=== PATIENT | male | born 1940 | race Caucasian/White ===

== ENCOUNTER 2021-12-26 15:57 | Observation (INO) | payer MEDICARE, BC, SELFPAY ==
[2021-12-26] VITALS (7 sets, daily range): BP systolic 123–152; BP diastolic 76–88; PULSE 71–98; RESP 18–20; TEMP 36.1–36.8; O2SAT 97–99; BMI 37.3
--- NOTE | ~2021-12-26 | CT_ITS ---
EXAMINATION: CTA brain carotid DATE: 12/26/2021 18:52 INDICATION: TIA TECHNIQUE: Computed tomographic angiography (CTA) of the head was performed without and with 100 mL O mnipaque-350 intravenous contrast. CTA of the neck was performed with intravenous contrast. The dose- length product was 1180.84 mGy-cm. Maximum intensity projection and volume rendered 3D-reconstruction s were created by the technologist on a separate workstation. COMPARISON: None. FINDINGS: CT BRAIN: No acute large vessel infarct, intracranial hemorrhage, mass, or hydrocephalus. CTA HEAD: No large vessel occlusion, aneurysm, high flow vascular malformation, nidus or extravasation. CTA NECK: Aortic arch and proximal great vessels: Mild atherosclerotic calcifications at the visualized aortic arch and proximal great vessels. Left common carotid artery origin directly off the arch. Right common carotid, carotid bifurcation, and internal carotid artery: No significant plaque.There i s 0% stenosis of the proximal right internal carotid artery relative to normal distal artery lumen di ameter (NASCET criteria). Left common carotid, carotid bifurcation, and internal carotid artery: No significant plaque.There is 0% stenosis of the proximal left internal carotid artery relative to normal distal artery lumen diam eter (NASCET criteria). Vertebral arteries: No significant plaque or stenosis. Left vertebral artery is dominant. Other findings: Cervical spondylosis. IMPRESSION: No large vessel occlusion. No severe carotid or vertebral stenosis. Reviewed, dictated and finalized at location K.
--- NOTE | ~2021-12-26 | CT_ITS ---
EXAMINATION: CT brain wo con DATE: 12/26/2021 16:12 INDICATION: Speech deficit. TECHNIQUE: Computed tomography (CT) of the head was performed without intravenous contrast. The mA wa s adjusted according to patient size. Iterative reconstruction technique was employed. The dose-lengt h product was 605.33 mGy-cm. COMPARISON: None FINDINGS: There is no intracranial hemorrhage, acute infarction, or abnormal intracranial mass lesion . There are scattered areas of low attenuation in the cerebral white matter. There are old lacunar in farcts in the bilateral basal ganglia. The ventricles are normal in size. There is mild mucosal thick ening in the paranasal sinuses. There are likely changes of ocular lens replacement surgeries. The ma stoid air cells are normal. IMPRESSION: 1. Old lacunar infarcts in the bilateral basal ganglia. 2. Mild nonspecific cerebral white matter disease, which likely represents chronic small vessel ische wisam disease. Reviewed, dictated and finalized at location B. IMPRESSION: 1. Old lacunar infarcts in the bilateral basal ganglia. 2. Mild nonspecific cerebral white matter disease, which likely represents chronometer assembler sona small vessel ischemic disease.
--- NOTE | ~2021-12-26 | MR_ITS ---
EXAMINATION: MR brain/brain stem wo/w con DATE: 12/27/2021 11:10 INDICATION: Transient ischemic episode with difficulty speaking TECHNIQUE: Magnetic resonance imaging (MRI) of the brain and brainstem was performed without and with 20 mL Multihance intravenous contrast. Sequences included sagittal and axial T1-weighted SE, axial d iffusion-weighted FS SE, axial T2*-weighted GRE, axial 3D SWAN, axial T2-weighted FLAIR, and axial T2 -weighted FSE. Postcontrast axial and coronal T1-weighted SE was obtained. Apparent diffusion coeffic ient (ADC) maps were created. COMPARISON: Head CT and CTA brain dated 12/26/2021 FINDINGS: Tiny focus of restricted diffusion in the right frontal quiroz radiata consistent with acute lacunar infarct. No intracranial hemorrhage or abnormal intracranial mass lesion. There are scattered areas o f nonspecific increased T2-weighted signal intensity in the cerebral white matter, predominantly invo lving the deep, pontine and periventricular white matter. There are no intraparenchymal signal abnorm alities seen on the other pulse sequences. The ventricles are symmetric and normal in size. There are no abnormal extra-axial fluid collections. Flow voids are seen in the cerebral arteries on the T2-we ighted sequences consistent with their expected patency. Mild mucosal thickening the bilateral maxill lety, ethmoid and frontal sinuses. Changes of bilateral intraocular lens replacement. Visualized orbit s and soft tissues are unremarkable. There are no areas of abnormal enhancement on the post contrast images. IMPRESSION: 1. Small acute lacunar infarct in the right frontal lobe quiroz radiata. Reviewed, dictated and finalized at location A.
--- NOTE | ~2021-12-26 | XR_ITS ---
EXAMINATION: XR chest 1V portable INDICATION: Speech deficit TECHNIQUE: Portable AP chest at 1631 hours COMPARISON: 09/19/2012 FINDINGS: The lungs are free of acute opacities. No pleural effusion or pneumothorax. The cardiomedia stinal silhouette is normal. IMPRESSION: 1. No acute cardiopulmonary abnormality. Reviewed, dictated and finalized at location A.
--- NOTE | 2021-12-26 16:05 | ECG_ITS ---
Measurements Intervals Wilmer Rate: 96 P: 36 KS: 186 QRS: 1 QRSD: 94 T: 50 QT: 338 QTc: 427 Interpretive Statements SINUS RHYTHM POOR R-WAVE PROGRESSION CANNOT RULE OUT INFERIOR INFARCTION ABNORMAL ECG COMPARED TO ECG 09/02/2018 19:28:03 NO SIGNIFICANT CHANGES Electronically Signed On 12-27-2021 9:30:09 CDT by Rodrigo Blanchard M.D.
--- NOTE | 2021-12-26 16:20 | ED.NEUROSD ---
HPI - Neuro Symptoms/Deficit General Chief Complaint: Neuro Symptoms/Deficit Stated Complaint: difficulty speaking, cp Time Seen by Provider: 12/26/21 16:19 Source: patient Mode of arrival: ambulatory Limitations: no limitations History of Present Illness HPI Narrative: Patient is an 81-year-old male with a history of hypertension, hyperlipidemia presenting to the emergency department for evaluation of word finding difficulty that occurred approximately 2:50 PM. Patient states that he was on the phone when he suddenly began to have issues with word finding. Patient denied any specific dysarthria, facial droop, arm weakness or numbness. Patient states that symptoms lasted approximately 20 minutes before resolving. Patient denies any current symptoms although he states he did experience some mild chest pressure that is currently resolved at the time of assessment. The chest pressure was located in the central area of the chest without radiation to the back or shoulder. Patient denies any ripping or tearing sensation to the flank or associated shortness of breath. Patient denies recent cough cold symptoms. Patient reports recently got COVID booster 3 days ago. Related Data Allergies Allergy/AdvReac Type Severity Reaction Status Date / Time nitroglycerin AdvReac Severe Other Verified 12/26/21 16:39 Review of Systems Review of Systems: CONSTITUTIONAL: Denies fever, chills, or sweats. EYES: Denies visual changes, redness, or discharge. ENT: Denies rhinorrhea, congestion, sore throat, or otalgia. CARDIOVASCULAR: Reports mild chest pressure without palpitations, or edema. RESPIRATORY: Denies cough or dyspnea. GASTROINTESTINAL: Denies abdominal pain, nausea, vomiting, or diarrhea. GENITOURINARY: Denies dysuria or hematuria. SKIN: Denies rash or itching. MUSCULOSKELETAL: Denies back pain, joint pain, or myalgia. NEUROLOGIC: Denies headache, numbness, or weakness. [facility] Past Medical History Medical History (Updated 12/26/21 @ 19:17 by Dulce Maria Zavala MD) Hyperlipidemia Surgical History Surgical History (Updated 12/26/21 @ 17:36 by Dulce Maria Zavala MD) H/O left knee surgery H/O wrist surgery Social History Social History (Updated 12/26/21 @ 17:37 by Dulce Maria Zavala MD) Alcohol intake: never Substance use: never Living arrangements: with family Gender identity (if verbalized by the patient): Male Exam Narrative: GENERAL: Awake, alert, conversant HEAD: Normocephalic, atraumatic. EYES: PERRLA and EOMI. ENT: Nares clear, no rhinorrhea or epistaxis. Mucous membranes moist. NECK: Supple. CHEST: No respiratory distress, breathing even and non labored HEART: Regular rate, sinus rhythm ABDOMEN:Non distended, non tender EXTREMITIES: Normal range of motion. No edema. SKIN: Warm, dry, no rash. NEURO:No focal deficits. Alert and oriented x3. Finger to nose intact bilaterally. EOMs intact without nystagmus. No facial droop/asymmetry noted bilaterally. Grimace intact. Intact sensation in face. Hearing intact bilaterally. Shoulder shrug intact. Strength 5/5 bilateral upper extremities. Strength 5/5 bilateral lower extremities. Reflexes 2+ patellar. Heel to black intact bilaterally. Ambulatory exam deferred. Course Vital Signs Vital signs: Vital Signs Temperature 36.6 C 12/26/21 16:20 Pulse Rate 93 12/26/21 16:20 Respiratory Rate 20 12/26/21 16:20 Blood Pressure 147/88 H 12/26/21 16:20 Pulse Oximetry 98 12/26/21 16:20 Oxygen Delivery Room Air 12/26/21 16:20 Temperature 36.6 C 12/26/21 16:20 Pulse Rate 84 12/26/21 17:24 Respiratory Rate 18 12/26/21 17:24 Blood Pressure 124/82 12/26/21 17:24 Pulse Oximetry 97 12/26/21 17:24 Oxygen Delivery Room Air 12/26/21 16:20 MDM - Neuro Symptoms/Deficit MDM Narrative Medical decision making narrative: Patient presenting for evaluation of difficulty with speech, resolved at the time of assessment. Patient made code stroke due to
[2021-12-26 16:23] LABS: Glucose Point of Care 82 mg/dl (65-105)
[2021-12-26 17:00] LABS: Basophils Absolute Auto 0.1 K/mm3 (0.0-0.1); Basophils Percent Auto 0.9 % (0.2-1.2); Eosinophils Absolute Auto 0.6 K/mm3 (0-0.3); Eosinophils Percent Auto 6.9 % (0-4.4); Hematocrit 46.1 % (42.0-52.0); Hemoglobin 14.8 g/dL (14.0-18.0); Immature Granulocyte Absolute 0.02 K/mm3 (0.00-0.031); Immature Granulocyte Percent A 0.2 % (0-0.5); Lymphocytes Absolute Auto 2.45 K/mm3 (0.9-3.2); Lymphocytes Percent Auto 30.5 % (18.3-44.2); Mean Corpuscular HGB Conc 32.1 g/dl (32-36); Mean Corpuscular Hemoglobin 31.6 pg (26-34); Mean Corpuscular Volume 98.5 fl (80-100); Mean Platelet Volume 11.1 fl (7.4-10.4); Monocytes Percent Auto 12.8 % (2.6-8.5); Neutrophils Absolute Auto 3.9 K/mm3 (1.3-6.7); Neutrophils Percent Auto 48.7 % (45.5-73.1); Platelet Count Result 320 k/mm3 (150-375); Red Blood Count 4.68 M/mm3 (4.6-6.20)
[2021-12-26 17:12] LABS: INR 1.1; Prothrombin Time 13.9 Seconds (11.1-14.7)
[2021-12-26 17:13] LABS: Alanine Aminotransferase 22 U/L (6-50); Albumin Level 4.4 g/dL (3.5-5.1); Alkaline Phosphatase 83 U/L (38-126); Anion Gap 11 mmol/L (8-16); Aspartate Amino Transferase 29 U/L (17-59); Blood Urea Nitrogen 19 mg/dL (9-20); Calcium 9.8 mg/dL (8.4-10.2); Carbon Dioxide 28 mmol/L (22-30); Chloride 104 mmol/L (98-107); Estimated CRCL calculation 51 ml/min; Estimated Glomerular Filt Rate > 60; Glucose 82 mg/dL (65-110); Partial Thromboplastin Time 29.8 SECONDS (22.3-36.8); Potassium 3.9 mmol/L (3.4-5.0); Sodium 143 mmol/L (137-145)
[2021-12-26 17:23] LABS: Troponin I < 0.012 ng/mL (0.000-0.034)
[2021-12-26 17:37] LABS: SARS-CoV-2 RNA PCR Negative
[2021-12-26] MEDS: ASPIRIN 81 MG CHEWABLE TABLET 324 MG PO (17:53)
--- NOTE | 2021-12-26 20:12 | ADMGEN ---
This patient, Luis Manuel Rowell, was admitted to IMU Room 206-01. Patient/family oriented to hospital policies and general routines including ID bracelet, bed and alarms, visiting hours, pain management, procedures, bathroom and other care routines, personal items, smoking policy, room service/diet, and visiting hours. Information on how to activate the Rapid Response Team has been discussed. Patient/Family are encouraged to report perceived risks to care and to ask questions if they do not understand what they are told or what they should do.
[2021-12-27] VITALS (9 sets, daily range): BP systolic 102–143; BP diastolic 59–79; PULSE 60–82; RESP 20; TEMP 36.6–36.7; O2SAT 96–99
--- NOTE | 2021-12-27 | ECHO_ITS ---
Patient Info Name: Luis Manuel Rowell Age: 81 years : 1940 Gender: Male Ht: 65 in Wt: 224 lbs BSA: 2.21 m2 HR: 72 bpm BP: 143 / 74 mmHg Heart Rhythm: Sinus Rhythm Exam Date: 12/27/2021 1:30 PM Exam Location: [facility] Patient Status: Outpatient Admit Date: 12/26/2021 Staff Ordering Physician: Dulce Maria Zavala MD Customer Services Manager: Adalberto Abdi, BLANCA, RT Attending Provider: Anoop Brambila MD Referring Physician: Lucas HERNANDEZ; Exam Type: CA echo doppler color flow Study Info Indications G45.8 - Other transient cerebral ischemic attacks and related syndromes Complete two-dimensional, color flow and Doppler transthoracic echocardiogram is performed. Strain analysis performed. Summary 1. Complete two-dimensional, color flow and Doppler transthoracic echocardiogram is performed. 2. Left ventricular chamber dimension is normal. 3. Left ventricular systolic function is normal, estimated at 65-70%. 4. There is mildly increased left ventricular wall thickness. 5. Global longitudinal strain is borderline at -17 %. 6. The left ventricular diastolic function is grade I diastolic dysfunction. 7. Left atrial chamber dimension is mildly enlarged. 8. There is moderate aortic valve regurgitation. 9. There is mild mitral valve regurgitation. 10. There is mild pulmonic regurgitation. Left Ventricle Left ventricular chamber dimension is normal. Left ventricular systolic function is normal, estimated at 65-70%. There is mildly increased left ventricular wall thickness. The left ventricular diastolic function is grade I diastolic dysfunction. Global longitudinal strain is borderline at -17 %. Right Ventricle Right ventricular chamber dimension is normal. Right ventricular systolic function is normal. Left Atria Left atrial chamber dimension is mildly enlarged. Right Atria Right atrial chamber dimension is normal. Atrial Septum Intact interatrial septum visualized by color flow imaging. Aortic Valve The aortic valve is trileaflet. There is mild aortic valve sclerosis. There is no aortic valve stenosis. There is moderate aortic valve regurgitation. Pulmonic Valve The pulmonic valve is normal. There is no pulmonic valve stenosis. There is mild pulmonic regurgitation. Mitral Valve The mitral valve has normal leaflets. There is no mitral valve stenosis. There is mild mitral valve regurgitation. Tricuspid Valve The tricuspid valve leaflets are normal. There is no significant tricuspid valve stenosis. There is trace tricuspid valve regurgitation. Pericardium/Pleural The pericardium appears normal. There is no pericardial effusion. Inferior Vena Cava Normal inferior vena cava with >50% collapse upon inspiration consistent with normal right atrial pressure, 5 mmHg. Aorta The aortic root size at the sinus of Valsalva is borderline dilated. The prox ascending aorta size is normal. Left Ventricular Outflow Tract Name Value Normal LVOT 2D LVOT Diameter 2.0 cm LVOT Doppler LVOT Peak Gradient 4 mmHg LVOT Mean Gradient 3
--- NOTE | 2021-12-27 00:06 | PM.IMHP ---
H&P: HPI History of Present Illness Date/Time: 12/26/2021 2300 Chief Complaint: Neuro deficit Narrative: This is an 81-year-old male patient who lives with his . The patient has a history of hypertension, and hyperlipidemia. He has no known previous strokes. The patient stated that he was on the phone with a [employer] when he noticed that his words were not coming out the way that he thought they were and this occurred at 2:50 p.m.. The patient stated that this lasted for approximately 20 minutes before resolving. The patient has no current symptoms. The patient stated that he did have some chest pressure that is now resolved. He had central chest pressure that is now resolved. The patient had no radiation to his back or shoulder. He had no fever chills. The patient stated that he recently had a COVID booster 3 days ago. COVID test is negative. Head and neck CTA was read as no large vessel occlusion. No severe carotid or vertebral stenosis. Chest x-ray was read as no acute cardiopulmonary abnormality. Head CT was read as old lacunar infarcts in the bilateral basal ganglia. Mild nonspecific cerebral white matter disease, which likely represents chronic small vessel ischemic disease. The patient was given Plavix and an aspirin in the emergency room. Neurology has been consulted. The 1st troponin was found to be negative. The patient is being admitted to observation status on the date of service of 12/26/2021. Review of Systems Review of Systems: See HPI All systems reviewed & are unremarkable except as noted in HPI and below Constitutional: Constitutional: Reports as per HPI and Reports no additional constitutional complaints Eyes: Eyes: Reports as per HPI and Reports no additional eye complaints ENT: Reports system reviewed and no additional complaints, except as documented and Reports Normal hearing present Cardiovascular: Cardiovascular: Reports no additional cardiovascular complaints Respiratory: Respiratory: Reports no additional respiratory complaints and Reports no additional respiratory complaints Gastrointestinal: Gastrointestinal: Reports as per HPI and Reports no additional gastrointestinal complaints Musculoskeletal: Musculoskeletal: Reports no additional musculoskeletal complaints Integumentary/Breasts: Skin/Breast: Reports system reviewed and no additional complaints, except as docu and Reports as per HPI Neurologic: Reports system reviewed and no additional complaints, except as documented, Reports as per HPI and Reports Normal hearing present Psychiatric: Psychiatric: Reports no additional psychiatric complaints and Reports as per HPI Endocrine: Endocrine: Reports no additional endocrine complaints Hematologic/Lymphatic: Hematologic/Lymphatic: Reports no additional hematologic/lymphatic complaints Allergic/Immunologic: Allergic/Immunologic: Reports no additional allergic/immunologic complaints PMFSH Past Medical History Medical History (Updated 12/27/21 @ 00:23 by Eva Murphy NP) History of CVA (cerebrovascular accident) Hyperlipidemia Hypertension Surgical History Surgical History (Updated 12/27/21 @ 00:13 by Eva Murphy NP) H/O left knee surgery Right and left total knee arthroplasty History of cataract extraction Family History Family History Other Unknown family medical history Social History Social History (Updated 12/27/21 @ 00:16 by Eva Murphy NP) Social History: The patient is and lives with his . They have 4 children together. The patient is retired. The patient is a lifelong nonsmoker. He does not use any alcohol, marijuana, or illicit drugs. His is his durable power quarrying specialist for healthcare. Code status full code Smoking status: Never smoker Alcohol intake: never Substance use: never Substance use type: does not use Living arrangements: with family [place]
[2021-12-27 05:14] LABS: Basophils Absolute Auto 0.1 K/mm3 (0.0-0.1); Basophils Percent Auto 0.8 % (0.2-1.2); Eosinophils Absolute Auto 0.7 K/mm3 (0-0.3); Eosinophils Percent Auto 9.4 % (0-4.4); Hematocrit 40.5 % (42.0-52.0); Hemoglobin 13.1 g/dL (14.0-18.0); Immature Granulocyte Absolute 0.03 K/mm3 (0.00-0.031); Immature Granulocyte Percent A 0.4 % (0-0.5); Lymphocytes Absolute Auto 2.64 K/mm3 (0.9-3.2); Lymphocytes Percent Auto 35.4 % (18.3-44.2); Mean Corpuscular HGB Conc 32.3 g/dl (32-36); Mean Corpuscular Hemoglobin 31.6 pg (26-34); Mean Corpuscular Volume 97.6 fl (80-100); Mean Platelet Volume 11.4 fl (7.4-10.4); Monocytes Absolute Auto 0.9 K/mm3 (0.1-0.6); Monocytes Percent Auto 11.4 % (2.6-8.5); Neutrophils Absolute Auto 3.2 K/mm3 (1.3-6.7); Neutrophils Percent Auto 42.6 % (45.5-73.1); Platelet Count Result 262 k/mm3 (150-375); Red Blood Count 4.15 M/mm3 (4.6-6.20); Red Cell Distribution Width 13.8 % (11.5-14.5); White Blood Count 7.5 K/mm3 (4.5-10.0)
[2021-12-27 05:30] LABS: Alanine Aminotransferase 20 U/L (6-50); Albumin Level 3.7 g/dL (3.5-5.1); Alkaline Phosphatase 82 U/L (38-126); Anion Gap 9 mmol/L (8-16); Aspartate Amino Transferase 23 U/L (17-59); Bilirubin,Total 0.8 mg/dL (0.2-1.3); Blood Urea Nitrogen 18 mg/dL (9-20); Calcium 9.3 mg/dL (8.4-10.2); Carbon Dioxide 25 mmol/L (22-30); Chloride 105 mmol/L (98-107); Cholesterol 139 mg/dL (0-200); Estimated CRCL calculation 56 ml/min; Estimated Glomerular Filt Rate > 60; Glucose 89 mg/dL (65-110); HDL Direct 34 mg/dL; Magnesium 1.8 mg/dL (1.6-2.3); Potassium 4.1 mmol/L (3.4-5.0); Sodium 139 mmol/L (137-145); Triglycerides 140 mg/dL (<150)
[2021-12-27 05:40] LABS: LDL Cholesterol Direct 66 mg/dL
[2021-12-27] MEDS: CLOPIDOGREL BISULFATE 75 MG TABLET PO (10:10)
[2021-12-27] MEDS: lisinopriL 5 MG TABLET PO (10:10)
[2021-12-27] MEDS: ATORVASTATIN 20 MG TABLET PO (10:10)
[2021-12-27] MEDS: ASPIRIN 81 MG ENTERIC TABLET PO (10:10)
[2021-12-27] MEDS: GABAPENTIN 100 MG CAPSULE PO (10:10)
--- NOTE | 2021-12-27 12:55 | WPDNEURCNPN ---
Assessment and Plan Assessment and plan (1) TIA (transient ischemic attack): Code(s): G45.9 - Transient cerebral ischemic attack, unspecified Status: Acute Plan all the present studies have been thoroughly discussed with the patient we are waiting only for the echocardiogram if that study is negative patient can be discharged on aspirin be followed in the office the next 3 months Consult date: 12/27/21 Time Seen: 12:30 Reason for consult: TIA HPI: Luis Manuel Rowell is a 81 year old maleAdmitted to the hospital through the emergency room for the complaints of difficulties in finding the right word to carry on the communication occurring around 2:50 p.m.. Reportedly he was on the phone when he suddenly began to have issues with word finding he did not notice that his speech was dysarthric and he had no associated any other neurological symptomatology the whole episode lasted for about 20 minutes he did have mild pressure-like sensation in the chest which subsequently resolved the pressure sensation was located in central areas of the chest without radiation to the back or to the shoulder had no difficulties in breathing has had COVID booster about 3 days ago in addition he has ongoing diagnosis of 1. Hypertension 2. Hyperlipidemia 3. Nitroglycerin allergies 4. No alcohol drinking 5. History of cerebrovascular accident in the past 6. Has been taking aspirin 81 mg daily in addition to atorvastatin 20 mg daily and benazepril 5 mg daily. Initial vital signs in the emergency room was stable with blood pressure 147/88 routine lab studies were normal, CT scan of the head documented lacunar infarct in bilateral gaze is ganglia, and CTA documented no acute large vessel involvement additionally MRI of the brain documented small acute infarct in the right frontal lobe coronal radiata Review of Systems Review of Systems: All systems reviewed & are unremarkable except as noted in HPI and below PMFSH Past Medical History Medical History (Updated 12/27/21 @ 13:03 by Homer Platt MD) History of CVA (cerebrovascular accident) Hyperlipidemia Hypertension Surgical History Surgical History (Updated 12/27/21 @ 00:13 by Eva Murphy NP) H/O left knee surgery Right and left total knee arthroplasty History of cataract extraction Family History Family History Other Unknown family medical history Social History Social History (Updated 12/27/21 @ 00:16 by Eva Murphy NP) Social History: The patient is and lives with his . They have 4 children together. The patient is retired. The patient is a lifelong nonsmoker. He does not use any alcohol, marijuana, or illicit drugs. His is his durable power staff attorney for healthcare. Code status full code Smoking status: Never smoker Alcohol intake: never Substance use: never Substance use type: does not use Living arrangements: with family Gender identity (if verbalized by the patient): Male Spiritual care concerns: No Has the Lack of Transportation Kept You From Medical Appointments or From Getting Medications?: No Within the Past 12 Months, Were You Worried Whether Your Food Would Run Out Before You Got Money to Buy More?: Never True What is Your Housing Situation Today?: I Have Housing Are You Worried That in the Next 2 Months, You May Not Have Your Own Housing to Live In?: No Do You Have Trouble Paying Your Heating Or Electricity Bill?: No Do You Have Trouble Paying For Medicines?: No Are You Currently Unemployed and Looking for Work?: No Highest Level of Education Completed: Bachelor's Degree Do You Have Trouble With Childcare or the Care of a Family Member?: No Meds Home Medications and Allergies Home Medications Medication Instructions Recorded Confirmed Type aspirin 81 mg tablet,delayed 81 mg PO DAILY 12/26/21 12/26/21 History release atorvastatin 20 m
--- NOTE | 2021-12-27 14:03 | PM.IMPN ---
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 The patient had already been on aspirin. Neurology consulted. Aspirin 81 mg daily with Plavix 75 mg daily. LDL 66 well controlled on atorvastatin. Blood pressure optimal. MRI did come back as lacunar infarct in right frontal lobe coronal radiata. Echo pending. CTA head and neck with no large vessel occlusion. No smoking history (2) Hypertension: Code(s): I10 - Essential (primary) hypertension Status: Acute Assessment and Plan: -continue with benazepril (3) Hyperlipidemia: Code(s): E78.5 - Hyperlipidemia, unspecified Status: Acute Assessment and Plan: -continue with atorvastatin. LDL well controlled at 66 Subjective Date/time seen: 12/27/21 14:03 Interval history: HPI:This is an 81-year-old male patient who lives with his .? The patient has a history of hypertension, and hyperlipidemia.? He has no known previous strokes.? The patient stated that he was on the phone with a [employer] when he noticed that his words were not coming out the way that he thought they were and this occurred at 2:50 p.m..? The patient stated that this lasted for approximately 20 minutes before resolving.? The patient has no current symptoms.? The patient stated that he did have some chest pressure that is now resolved.? He had central chest pressure that is now resolved.? The patient had no radiation to his back or shoulder.? He had no fever chills.? The patient stated that he recently had a COVID booster 3 days ago.? COVID test is negative.? Head and neck CTA was read as no large vessel occlusion.? No severe carotid or vertebral stenosis.? Chest x-ray was read as no acute cardiopulmonary abnormality.? Head CT was read as old lacunar infarcts in the bilateral basal ganglia.? Mild nonspecific cerebral white matter disease, which likely represents chronic small vessel ischemic disease.? The patient was given Plavix and an aspirin in the emergency room.? Neurology has been consulted.? The 1st troponin was found to be negative.? The patient is being admitted to observation status on the date of service of 12/26/2021. 12/27/2021 no recurrent symptoms. Feeling okay. Denies any shortness of breath chest pain. Review of Systems Review of Systems: All systems reviewed & are unremarkable except as noted in HPI and below Exam Narrative: GENERAL: Awake, alert, conversant HEAD: Normocephalic, atraumatic. EYES: PERRLA and EOMI. ENT: Nares clear, no rhinorrhea or epistaxis. Mucous membranes moist. NECK: Supple. Nontender CHEST: No respiratory distress, breathing even and non labored HEART: Regular rate, sinus rhythm ABDOMEN:Non distended, non tender EXTREMITIES: Normal range of motion. No edema. SKIN: Warm, dry, no rash. NEURO:No focal deficits. Alert and oriented x3.? no focal neuro deficit noted. Objective Data Vital Signs Vital Signs: Vital Signs - 24 hr 12/26/21 16:20 12/26/21 16:35 12/26/21 17:24 Temperature 98 F Pulse Rate 93 98 84 Respiratory Rate 20 20 18 Blood Pressure 147/88 H 147/88 H 124/82 Pulse Oximetry 98 98 97 Oxygen Delivery Room Air 12/26/21 19:55 12/26/21 20:15 12/26/21 22:00 Temperature 98.2 F Pulse Rate 72 71 76 Respiratory Rate 18 Blood Pressure 152/86 H Pulse Oximetry 98 Oxygen Delivery 12/26/21 23:27 12/27/21 00:00 12/27/21 00:00 Temperature 96.9 F L Pulse Rate 84 60 60 Respiratory Rate 20 20 Blood Pressure 123/76 Pulse Oximetry 99 99 Oxygen Delivery Room Air 12/27/21 01:46 12/27/21 04:00 12/27/21 04:00 Temperature Pulse Rate 62 60 60 Respiratory Rate 20 Blood Pressure Pulse Oximetry 99 Oxygen Delivery
--- NOTE | 2021-12-27 15:27 | PM.DS ---
DS: Admitting Diagnosis Discharge Date 12/27/2021 Admitting Diagnosis expressive aphasia DS: Discharge Diagnosis Discharge Diagnosis (1) Transient cerebral ischemia: Code(s): G45.9 - Transient cerebral ischemic attack, unspecified Status: Acute (2) Hypertension: Code(s): I10 - Essential (primary) hypertension Status: Acute (3) Hyperlipidemia: Code(s): E78.5 - Hyperlipidemia, unspecified Status: Acute DS: Summary Hospital Course Reason for hospitalization: HPI:This is an 81-year-old male patient who lives with his .? The patient has a history of hypertension, and hyperlipidemia.? He has no known previous strokes.? The patient stated that he was on the phone with a [employer] when he noticed that his words were not coming out the way that he thought they were and this occurred at 2:50 p.m..? The patient stated that this lasted for approximately 20 minutes before resolving.? The patient has no current symptoms.? The patient stated that he did have some chest pressure that is now resolved.? He had central chest pressure that is now resolved.? The patient had no radiation to his back or shoulder.? He had no fever chills.? The patient stated that he recently had a COVID booster 3 days ago.? COVID test is negative.? Head and neck CTA was read as no large vessel occlusion.? No severe carotid or vertebral stenosis.? Chest x-ray was read as no acute cardiopulmonary abnormality.? Head CT was read as old lacunar infarcts in the bilateral basal ganglia.? Mild nonspecific cerebral white matter disease, which likely represents chronic small vessel ischemic disease.? The patient was given Plavix and an aspirin in the emergency room.? Neurology has been consulted.? The 1st troponin was found to be negative.? The patient is being admitted to observation status on the date of service of 12/26/2021. Hospital Course: # acute lacunar frontal lobe coronal radiata stroke: Leading to expressive aphasia transient lasted about 15 minutes. On aspirin at home prior to admission. Added on Plavix which will be continued for 3 total weeks followed by aspirin only for lifelong. He was continued on his atorvastatin. His LDL was checked which came back at 66 which is controlled and at goal. He was monitored on telemetry which did not show any arrhythmias. Echocardiogram showed no thrombus or PFO. Neurology was consulted during that admission. He was continued to follow-up with neurologist as an outpatient basis. CTA head and neck was done which showed no large vessel occlusion # hypertension: -continue with benazepril # hyperlipidemia: -continue with atorvastatin. ?LDL well controlled at 66 Time Spent with Patient Time attestation: Total time spent providing and/or coordinating discharge services: 45 minutes Exam Narrative: GENERAL: Awake, alert, conversant HEAD: Normocephalic, atraumatic. EYES: PERRLA and EOMI. ENT: Nares clear, no rhinorrhea or epistaxis. Mucous membranes moist. NECK: Supple. Nontender CHEST: No respiratory distress, breathing even and non labored HEART: Regular rate, sinus rhythm ABDOMEN:Non distended, non tender EXTREMITIES: Normal range of motion. No edema. SKIN: Warm, dry, no rash. NEURO:No focal deficits. Alert and oriented x3.? no focal neuro deficit noted. DS: Data Data Completed and Pending Completed studies during hospitalization: Exam Type: ? ? CA echo doppler color flow Study Info Indications ? ? G45.8 - Other transient cerebral ischemic attacks and related syndromes Complete two-dimensional, color flow and Doppler transthoracic echocardiogram is performed. ? Strain analysis performed. Account #: ? ? [id number] Summary ? 1. Complete two-dimensional, color flow and Doppler transthoracic echocardiogram is performed. ? 2. Left ventricular chamber dimension is normal. ? 3. Left ventricular systolic function is normal, estimated at 65-70%. ? 4. There is mildly incre
== END 2021-12-27 15:58 | disposition home or self-care (01) ==
LOC: ANHED 19:17 → ANHIMU 19:29
PROVIDERS: Nurse Practitioner; Admitting Provider Internal Medicine; Emergency Provider Emergency Medicine; PCP Family Medicine; Visit Provider Internal Medicine
DX: G45.9 Transient cerebral ischemic attack, unspecified (principal); R07.9 Chest pain, unspecified; I10 Essential (primary) hypertension; E78.5 Hyperlipidemia, unspecified; Z86.73 Personal history of transient ischemic attack (TIA), and cerebral infarction without residual deficits; Z96.653 Presence of artificial knee joint, bilateral; Z79.82 Long term (current) use of aspirin; Z20.822 Contact with and (suspected) exposure to COVID-19
CPT/HCPCS: 36415; 70450; 70496; 70498; 70553; 71045; 80053; 80061; 82948; 83735; 84443; 84484; 85025; 85610; 85730; 93005; 93306; 99285; A9270; A9577; C9803; G0378; Q9967; U0003; U0005

== ENCOUNTER 2022-09-16 15:38 | Outpatient (CLI) | payer MEDICARE, BC, SELFPAY ==
--- NOTE | ~2022-09-16 | CT_ITS ---
EXAMINATION: CT brain wo con INDICATION: Confusion, history of transient ischemic attack COMPARISON: 12/26/2021 TECHNIQUE: Standard unenhanced head CT. The dose-length product (DLP) was 605.33 mGy-cm. The mA was a djusted according to patient size. Iterative reconstruction technique was employed. FINDINGS: There is no acute intraparenchymal hemorrhage. No evidence of mass lesion. No evidence of a cute infarction. There is mild periventricular and subcortical hypodensity probably related to small vessel ischemic disease. There is mild prominence of the sulci and ventricles related to cerebral atr ophy. Intracranial calcified cerebral atherosclerosis is noted. There are no extra-axial collections. There is no mass effect or midline shift. Changes in the globes are likely from ocular lens surgery. The visualized sinuses and mastoid air cells are well aerated. IMPRESSION: 1. No acute intracranial abnormality. 2. Age related findings. Reviewed, dictated and finalized at location B.
== END 2022-09-16 15:39 | disposition home or self-care (01) ==
PROVIDERS: PCP Family Medicine; Visit Provider Internal Medicine Cardiovascular Disease
DX: R41.3 Other amnesia (principal); Z86.73 Personal history of transient ischemic attack (TIA), and cerebral infarction without residual deficits
CPT/HCPCS: 70450

== ENCOUNTER 2022-09-29 12:20 | Outpatient (CLI) | payer MEDICARE, BC, SELFPAY ==
--- NOTE | ~2022-09-29 | MR_ITS ---
MRA NECK History: TIA Technique: MRA of the neck was performed prior to and following intravenous administration of 20 cc o f MultiHance. Findings: Both vertebral arteries are patent and show antegrade flow and appear normal. Right and lef t common carotid arteries and the right and left cervical internal carotid arteries and external juárez tid arteries appear normal. The proximal right internal carotid artery demonstrates 0% stenosis relat andrade to the normal distal artery lumen diameter. The proximal left internal carotid artery demonstrate s 0% stenosis relative to the normal distal artery lumen diameter. Impression: No occlusion or stenosis. Reviewed, dictated and finalized at location M. Impression: No occlusion or stenosis.
--- NOTE | ~2022-09-29 | MR_ITS ---
MRI of the brain Clinical History: TIA Technique: Axial and sagittal T1-weighted images were acquired. These were followed by axial T2-weigh martha, diffusion weighted, gradient, and FLAIR images. Following intravenous administration of 20 cc Mu ltiHance gadolinium, T1-weighted fat-sat imaging was performed in the axial and coronal planes. Findings: There is no acute infarct, acute intracranial hemorrhage, or mass lesion. There is moderate to severe chronic white matter disease in the periventricular white matter bilaterally. There are mu ltiple scattered focal areas of low signal on gradient images, especially in the bilateral basal gang jean. Ventricles and subarachnoid spaces are mildly dilated. Orbits are unremarkable. There is minimal bila teral frontal sinus disease. Remaining paranasal sinuses and mastoid air cells are clear. Major intra cranial flow voids are intact. Sagittal midline structures are intact. No abnormal postcontrast enhancement identified. IMPRESSION: No acute abnormality evident. Extensive chronic white matter disease and multiple scattered low signal foci on gradient images, com patible with sequela of prior microhemorrhages. Constellation of findings is suspicious for amyloid a ngiopathy. Reviewed, dictated and finalized at location . IMPRESSION: No acute abnormality evident. Extensive chronic white matter disease and multiple scattered low signal foci o n gradient images, compatible with sequela of prior microhemorrhages. Constella tion of findings is suspicious for amyloid angiopathy.
== END 2022-09-29 12:21 | disposition home or self-care (01) ==
PROVIDERS: PCP Family Medicine Sports Medicine; Visit Provider Internal Medicine Cardiovascular Disease
DX: R41.3 Other amnesia (principal); Z86.73 Personal history of transient ischemic attack (TIA), and cerebral infarction without residual deficits; R93.0 Abnormal findings on diagnostic imaging of skull and head, not elsewhere classified
CPT/HCPCS: 70549; 70553; A9577

== ENCOUNTER 2023-02-24 13:56 | Observation (INO) | payer MEDICARE, BC, SELFPAY ==
[2023-02-24] VITALS (34 sets, daily range): BP systolic 134–158; BP diastolic 78–95; PULSE 68–107; RESP 16–25; TEMP 36.4; O2SAT 93–100
--- NOTE | ~2023-02-24 | MR_ITS ---
MRI of the brain Clinical History: TIA Technique: Axial and sagittal T1-weighted images were acquired. These were followed by axial T2-weigh martha, diffusion weighted, gradient, and FLAIR images. COMPARISON: 09/29/2022 Findings: There is no acute infarct, acute intracranial hemorrhage, or mass lesion. There are extensi ve chronic white matter changes in the periventricular white matter, similar to prior exam. There are several scattered foci of hemosiderin, compatible sequelae remote microhemorrhages, similar to prior exam. Ventricles and subarachnoid spaces are mildly dilated. Orbits are unremarkable. There is mild bilater al frontal sinus disease. Remaining paranasal sinuses and mastoid air cells are clear. Major intracra nial flow voids are intact. Sagittal midline structures are intact. IMPRESSION: No acute abnormality. Extensive chronic white matter disease and several scattered foci of hemosiderin, compatible prior mi crohemorrhage. Amyloid angiopathy is a consideration versus typical chronic microvascular ischemic ch rufino and hypertensive microhemorrhages. Reviewed, dictated and finalized at location M. RANCE AUDITOR IMPRESSION: No acute abnormality. Extensive chronic white matter disease and several scattered foci of hemosideri n, compatible prior microhemorrhage. Amyloid angiopathy is a consideration vers us typical chronic microvascular ischemic change and hypertensive microhemorrha ges.
--- NOTE | ~2023-02-24 | CT_ITS ---
EXAMINATION: CT brain wo con INDICATION: Slurred speech COMPARISON: 09/16/2022 TECHNIQUE: Standard unenhanced head CT. The dose-length product (DLP) was 681.00 mGy-cm. The mA was a djusted according to patient size. Iterative reconstruction technique was employed. FINDINGS: No acute intraparenchymal hemorrhage. No evidence of mass lesion. No evidence of acute infa rction. There is mild periventricular and subcortical hypodensity probably related to small vessel is chemic disease. There is mild prominence of the sulci and ventricles related to cerebral atrophy. Int racranial calcified cerebral atherosclerosis is noted. No extra-axial collections. No mass effect or midline shift. Changes in the globes are likely from ocular lens surgery. The visualized sinuses and mastoid air cells are well aerated. IMPRESSION: 1. No acute intracranial abnormality. 2. Age related findings. Reviewed, dictated and finalized at location B. N MIXER
--- NOTE | ~2023-02-24 | XR_ITS ---
EXAMINATION: XR chest 1V portable DATE: 02/24/2023 14:52 INDICATION: Possible stroke presenting with confusion and slurred speech TECHNIQUE: frontal view of the chest was obtained. COMPARISON: Chest radiograph dated 12/26/2021 FINDINGS: The lungs are clear with no focal airspace opacities, pulmonary edema, pleural effusion or pneumothor ax. The cardiomediastinal silhouette is normal. Visualized bones and soft tissues are unremarkable. IMPRESSION: 1. No acute cardiopulmonary disease. Reviewed, dictated and finalized at location A. ING AIDE
--- NOTE | 2023-02-24 14:28 | ECG_ITS ---
Measurements Intervals [place] Rate: 87 P: 30 VT: 174 QRS: -14 QRSD: 97 T: 61 QT: 347 QTc: 418 Interpretive Statements SINUS RHYTHM MODERATE VOLTAGE CRITERIA FOR LVH, CONSIDER NORMAL VARIANT NONSPECIFIC T-WAVE ABNORMALITY CANNOT RULE OUT INFERIOR INFARCTION, AGE INDETERMINATE ABNORMAL ECG COMPARED TO ECG 12/26/2021 16:21:17 T-WAVE ABNORMALITY NOW PRESENT Electronically Signed On 02-24-2023 17:24:13 [employer] by Charles Bhardwaj M.D.
[2023-02-24 15:38] LABS: Basophils Absolute Auto 0.1 K/mm3 (0.0-0.1); Basophils Percent Auto 0.6 % (0.2-1.2); Eosinophils Absolute Auto 0.5 K/mm3 (0-0.3); Eosinophils Percent Auto 6.2 % (0-4.4); Hemoglobin 14.7 g/dL (14.0-18.0); Immature Granulocyte Absolute 0.02 K/mm3 (0.00-0.031); Immature Granulocyte Percent A 0.2 % (0-0.5); Lymphocytes Absolute Auto 2.12 K/mm3 (0.9-3.2); Lymphocytes Percent Auto 24.9 % (18.3-44.2); Mean Corpuscular Hemoglobin 31.5 pg (26-34); Mean Corpuscular Volume 98.5 fl (80-100); Mean Platelet Volume 12.3 fl (7.4-10.4); Monocytes Absolute Auto 0.8 K/mm3 (0.1-0.6); Monocytes Percent Auto 9.7 % (2.6-8.5); Neutrophils Percent Auto 58.4 % (45.5-73.1); Platelet Count Result 246 k/mm3 (150-375); Red Blood Count 4.67 M/mm3 (4.6-6.20); Red Cell Distribution Width 13.2 % (11.5-14.5); White Blood Count 8.5 K/mm3 (4.5-10.0)
[2023-02-24 15:55] LABS: Prothrombin Time 13.2 Seconds (11.1-14.7)
[2023-02-24 15:56] LABS: Partial Thromboplastin Time 26.8 SECONDS (22.3-36.8)
--- NOTE | 2023-02-24 16:27 | ED.NEUROSD ---
HPI - Neuro Symptoms/Deficit General Chief Complaint: Neuro Symptoms/Deficit Stated Complaint: trouble with speech, staring off Time Seen by Provider: 02/24/23 14:27 History of Present Illness HPI Narrative: Pt presents to the ER with his with Concern for possible TIA prior to arrival. He had a history of a stroke. Was seen by Neurology recently and taking off his Plavix. Patient had an episode where he could not find the right words and per his his speech was unable to be understood. He could not smile but no other neuro deficit. He was emotionally upset due to a couple friends dying this week at that time. states that he does not ever get emotionally upset. Episode lasted 3-4 minutes. Patient is overall healthy. No neuro deficits on my exam Related Data Home Medications Medication Instructions Recorded Confirmed aspirin 81 mg tablet,delayed 81 mg PO DAILY 12/26/21 12/26/21 release atorvastatin 20 mg tablet 20 mg PO DAILY 12/26/21 12/26/21 benazepril 5 mg tablet 5 mg PO DAILY 12/26/21 12/26/21 gabapentin 100 mg capsule 100 mg PO TID 12/26/21 12/26/21 Allergies Allergy/AdvReac Type Severity Reaction Status Date / Time nitroglycerin AdvReac Severe Other Verified 02/24/23 14:28 Review of Systems Review of Systems: negative except as documented in the HPI [facility] Past Medical History Medical History (Updated 02/24/23 @ 21:05 by Monica Freeman MD) History of CVA (cerebrovascular accident) Hyperlipidemia Hypertension Surgical History Surgical History (Updated 12/27/21 @ 00:13 by Eva Murphy NP) H/O left knee surgery Right and left total knee arthroplasty History of cataract extraction Family History Family History Other Unknown family medical history Social History Social History (Updated 12/27/21 @ 00:16 by Eva Murphy NP) Social History: The patient is and lives with his . They have 4 children together. The patient is retired. The patient is a lifelong nonsmoker. He does not use any alcohol, marijuana, or illicit drugs. His is his durable power claim attorney for healthcare. Code status full code Smoking status: Never smoker Alcohol intake: never Substance use: never Substance use type: does not use Lack of Transportation: No Lack of Food: Never True Current Housing: I Have Housing Concerned About Future Housing: No Difficulty Paying Gas/Electric Bills: No Difficulty Paying for Meds: No Currently Unemployed: No Education: Bachelor's Degree Difficulty w/ Childcare or Family Care: No Living arrangements: with family Gender identity (if verbalized by the patient): Male Spiritual care concerns: No Exam Narrative: GENERAL: Well-appearing, well-nourished, and in no acute distress. HEAD: Normocephalic, atraumatic. EYES: PERRLA and EOMI. ENT: Nares clear, no rhinorrhea or epistaxis. Mucous membranes moist. NECK: Supple. CHEST: Clear to auscultation. No respiratory distress. HEART: Regular rate and rhythm. ABDOMEN: Soft, nontender, nondistended. EXTREMITIES: Normal range of motion. No edema. SKIN: Warm, dry, no rash. NEURO: No focal deficits. Alert and oriented x3. PSYCH: Normal mood and affect. Course Course Emergency Course: NIH score currently is 0 Vital Signs Vital signs: Vital Signs Pulse Rate 90 02/24/23 14:09 Respiratory Rate 21 H 02/24/23 14:09 Pulse Oximetry 98 02/24/23 14:09 Temperature 36.4 C 02/24/23 14:21 Pulse Rate 94 02/24/23 19:28 Respiratory Rate 19 02/24/23 19:28 Blood Pressure 140/89 02/24/23 19:28 Pulse Oximetry 99 02/24/23 19:28 Oxygen Delivery Room Air 02/24/23 14:21 MDM - Neuro Symptoms/Deficit MDM Narrative Medical decision making narrative: patient admitted to hospitalist for possibility of TIA Lab Data 02/24/23 15:29 02/24/23 16:18
[2023-02-24 16:35] LABS: Alanine Aminotransferase 15 U/L (6-50); Albumin Level 3.8 g/dL (3.5-5.1); Alkaline Phosphatase 82 U/L (38-126); Anion Gap 7 mmol/L (8-16); Aspartate Amino Transferase 19 U/L (17-59); Bilirubin,Total 0.7 mg/dL (0.2-1.3); Blood Urea Nitrogen 16 mg/dL (9-20); Calcium 9.7 mg/dL (8.4-10.2); Carbon Dioxide 27 mmol/L (22-30); Chloride 105 mmol/L (98-107); Estimated CRCL calculation 60 ml/min; Estimated Glomerular Filt Rate > 60; Glucose 92 mg/dL (65-110); Potassium 4.1 mmol/L (3.4-5.0); Sodium 139 mmol/L (137-145)
[2023-02-24 16:46] LABS: Troponin I < 0.012 ng/mL (0.000-0.034)
[2023-02-24] MEDS: ASPIRIN 81 MG CHEWABLE TABLET 324 MG PO (17:29)
--- NOTE | 2023-02-24 17:33 | PC.NURSE ---
Pt reports taking 81 mg baby aspirin daily. MD made aware, VORB for only 3 baby aspirin.
--- NOTE | 2023-02-24 20:31 | PM.IMHP ---
H&P: HPI History of Present Illness Date/Time: 02/24/23 20:30 Chief Complaint: Slurred speech. Narrative: This is a very pleasant 82-year-old gentleman with history of transient ischemic attack, hyperlipidemia, and hypertension who presented to the emergency department via private vehicle from home for evaluation of slurred speech. The patient provides the following history. He had a TIA approximately 1 year ago and was taken off of clopidogrel just 2 weeks ago by his neurologist at [place]. Today he had several episodes slurred speech where he was having difficulties articulating what he was trying to say. also reports that he was briefly staring off into space. At 1 time he had an emotional outburst and was yelling nonsensically and was upset with his which is very unusual for him. He goes on to say however that he has been upset most ill this past week as he has lost 2 friends recently. His symptoms resolved by the time he arrived to the emergency department. He denies vertigo, visual changes, facial droop, difficulty swallowing, focal weakness, and paresthesias. No history of atrial fibrillation he denies sensations of racing heart palpitations. He has known history of carotid artery disease. Brain CT showed no acute findings. He is being admitted in this setting for TIA/stroke workup neurology consultation. In the ED he was given aspirin 324 mg x 1. Review of Systems Review of Systems: Twelve systems were reviewed and are negative except for as per HPI. [facility] Past Medical History Medical History (Updated 02/24/23 @ 23:44 by Fartun Santiago PA-C) Hyperlipidemia Hypertension Obstructive sleep apnea on CPAP Transient ischemic attack Surgical History Surgical History (Updated 02/24/23 @ 23:44 by Fartun Santiago PA-C) History of bilateral knee arthroplasty History of cataract extraction Family History Family History Other Unknown family medical history Social History Social History (Updated 02/24/23 @ 23:45 by Fartun Santiago PA-C) Social History: Surrogate medical decision maker: Grace Estrella, spouse. Code status: Full code. Smoking status: Never smoker Alcohol intake: never Substance use: never Substance use type: does not use Lack of Transportation: No Lack of Food: Never True Current Housing: I Have Housing Concerned About Future Housing: No Difficulty Paying Gas/Electric Bills: No Difficulty Paying for Meds: No Currently Unemployed: No Education: Bachelor's Degree Difficulty w/ Childcare or Family Care: No Living arrangements: with family Additional living arrangements comments: and lives with spouse in [place]. They have 4 children. 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 Spiritual care concerns: No Meds Home Medications and Allergies Home Medications Medication Instructions Recorded Confirmed Type aspirin 81 mg tablet,delayed 81 mg PO DAILY 12/26/21 12/26/21 History release atorvastatin 20 mg tablet 20 mg PO DAILY 12/26/21 12/26/21 History benazepril 5 mg tablet 5 mg PO DAILY 12/26/21 12/26/21 History gabapentin 100 mg capsule 100 mg PO TID 12/26/21 12/26/21 History clopidogrel 75 mg tablet 75 mg PO QAM #21 tabs 12/27/21 Rx Allergies Allergy/AdvReac Type Severity Reaction Status Date / Time nitroglycerin AdvReac Severe Other Verified 02/24/23 14:28 Vital Signs Vital Signs - 24 hr 02/24/23 14:21 02/24/23 14:24 02/24/23 14:25 Temperature 97.6 F Pulse Rate 91 90 91 Respiratory Rate 20 20 Blood Pressure 158/95 H 158/95 H Pulse Oximetry 98 98 Oxygen Delivery Room Air 02/24/23 14:09 02/24/23 14:15 02/24/23 14:16 Temperature Pulse Rate 90 107 H 90 Respiratory Rate 21 H 18 16 Blood Pressure 158/95 H Pulse Oximetry 98 98 97 Oxygen Delivery 02/24/23 14:32 02/24/23 14:46 02/24/23 14:47
--- NOTE | 2023-02-24 21:09 | PC.NURSE ---
This RN attempted to confirm pts home medications, but pt does not know doses. States he will have bring medications in AM.
[2023-02-25] VITALS (42 sets, daily range): BP systolic 136–170; BP diastolic 83–107; PULSE 63–116; RESP 12–27; TEMP 36.7; O2SAT 94–100
[2023-02-25 01:29] LABS: Influenza A QL RT-PCR Negative (Negative); Influenza B QL RT-PCR Negative (Negative); RSV RNA, RT-PCR Negative (Negative); SARS-CoV-2 RNA PCR Negative (Negative)
--- NOTE | 2023-02-25 09:24 | PM.IMPN ---
Progress Note: A&P Assessment and Plan (1) Transient ischemic attack: Code(s): G45.9 - Transient cerebral ischemic attack, unspecified Status: Acute (2) Hypertension: Code(s): I10 - Essential (primary) hypertension Status: Acute (3) Hyperlipidemia: Code(s): E78.5 - Hyperlipidemia, unspecified Status: Acute (4) Obstructive sleep apnea on CPAP: Code(s): G47.33 - Obstructive sleep apnea (adult) (pediatric) Status: Acute Plan TIA The patient presented to the emergency department for evaluation of difficulties speaking, an episode of staring, and emotional change He has lost 2 friends in the last week and a half or so and this has caused him to be quite emotional which is unusual for him. CT head shows no acute intracranial issues MRA neck September 30 2022 shows no significant stenosis, brain MRI shows no acute abnormality and that time telemetry overnight. Brain MRI ordered for a.m, No acute abnormality. Continue aspirin 81 mg daily, Lipitor 20 mg daily I am a. Resume clopidogrel. Neurology checks ordered q.4 hours. Neurology has been consulted and their input is appreciated. Neurologist recommends Plavix was discontinued at the [facility] given history of positive MRI for the microhemorrhages, and will continue to keep him off instructed explain to him? that he should continue on leave and baby aspirin every day but no more Plavix 2. 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 3.? Gave him Ativan 0.5mg only 7 tablets to be taken 1 daily.? 4.? Follow up with his primary physician as well Urologist recommends to discharge patient today Blood pressures Blood pressure stable Continue home medication Subjective Date/time seen: 02/25/23 09:24 Interval history: I saw exam patient ED, patient denies headache, trouble with talking, slurred speech has resolved. Patient denies vision change, focal weakness, lightheadedness, on stable gait. Patient also has no fever, blood pressures stable Exam Narrative: GENERAL: Pleasant, in no acute distress. Well-nourished. - EYES: EOMI. Anicteric. - HENT: Moist mucous membranes. - LUNGS: Clear to auscultation bilaterally, no wheezing, rhonchi, or rales. - CARDIOVASCULAR: Regular rate and rhythm. No murmur. No JVD. - ABDOMEN: Soft, non-tender and non-distended. No palpable masses. - EXTREMITIES: No edema. Peripheral pulses 2+. Non-tender. - NEUROLOGIC: No focal neurological deficits. CN II-XII grossly intact. - PSYCHIATRIC: Awake, Alert and oriented x 3. Appropriate mood and affect. - SKIN: No rashes or lesions. Warm. - LYMPH: No cervical lymphadenopathy. Objective Data Vital Signs Vital Signs: Vital Signs - 24 hr 02/24/23 14:21 02/24/23 14:24 02/24/23 14:25 Temperature 97.6 F Pulse Rate 91 90 91 Respiratory Rate 20 20 Blood Pressure 158/95 H 158/95 H Pulse Oximetry 98 98 Oxygen Delivery Room Air Fraction of Inspired Oxygen 02/24/23 14:09 02/24/23 14:15 02/24/23 14:16 Temperature Pulse Rate 90 107 H 90 Respiratory Rate 21 H 18 16 Blood Pressure 158/95 H Pulse Oximetry 98 98 97 Oxygen Delivery Fraction of Inspired Oxygen 02/24/23 14:32 02/24/23 14:46 02/24/23 14:47 Temperature Pulse Rate 85 82 82 Respiratory Rate 20 19 19 Blood Pressure 139/88 Pulse Oximetry 95 98 97 Oxygen Delivery Fraction of Inspired Oxygen 02/24/23 15:00 02/24/23 15:15 02/24/23 15:16 Temperature Pulse Rate 85 72 73 Respiratory Rate 19 21 H 19 Blood Pressure 155/90 H Pulse Oximetry Oxygen Delivery Fraction of Inspired Oxygen 02/24/23 19:28 02/24/23 21:54 02/24/23 23:34 Temperature Pulse Rate 94 78 Respiratory Rate 19 18 21 H Blood Pressure 140/89 134/78 Pulse Oximetry 99 100 Oxygen Delivery CPAP Fraction of Inspired Oxygen 02/25/23 01:42 02/25/23 03:23 02/25/23 05:02 Temperature 98.1 F Pulse Rate 66 83 81 Respiratory
[2023-02-25] MEDS: ASPIRIN 81 MG CHEWABLE TABLET (09:43)
[2023-02-25] MEDS: CLOPIDOGREL BISULFATE 75 MG TABLET PO (09:43)
--- NOTE | 2023-02-25 11:14 | WPDNEURCNPN ---
Assessment and Plan Assessment and plan (1) Transient ischemic attack: Code(s): G45.9 - Transient cerebral ischemic attack, unspecified Status: Acute Plan 1. TIA. With positive MRI for the microhemorrhages Plavix was discontinued at the [facility] and will continue to keep him off instructed explain to him that he should continue on leave and baby aspirin every day but no more Plavix 2. he is being followed by the cardiologists here keep the follow-up with that analyst sales. 3. Gave him Ativan 0.5mg only 7 tablets to be taken 1 daily. 4. Follow up with his primary physician as well Consult date: 02/25/23 HPI: Luis Manuel Rowell is a 82 year old male Came to the hospital emergency room accompanied by his with the possibility of TIA her to the arrival patient does have a history of stroke in the past was recently seen by neurologist at [facility] see when he was taken off the Plavix. As per the information available he had an episode where he could not find the right words as per his and speech was unable to be understood. He could not smile but there was no motor deficit he has been emotionally upset recently due to couple of friends denying this week at that time though usually he does not get easily upset. His medications include aspirin 81mg daily atorvastatin 20mg daily benazepril 5mg daily and gabapentin 100mg 3 times a day. He is allergic to nitroglycerin. And has history of the cerebrovascular accident in the past in addition to history of hypertension and hyperlipidemia his never smoker never alcohol intake initial exam in the emergency room revealed him to have no focal neurological deficit his vital signs were normal with blood pressure 140/89 CBC was normal, BMP was normal, and all the routine lab studies were negative considering the possibility of the TIA neuro consultation was Obtained for that reason. Aspirin has already been given to him 324mg once. MRI of the brain has been done which revealed extensive chronic white matter disease in several scattered foci of hemosiderin compatible with prior microhemorrhages a positive amyloid angiopathy versus the typical chronic microvascular ischemic changes with hypertensive micro hemorrhages. Review of Systems Review of Systems: All systems reviewed & are unremarkable except as noted in HPI and below PMFSH Past Medical History Medical History (Updated 02/24/23 @ 23:44 by Fartun Santiago PA-C) Hyperlipidemia Hypertension Obstructive sleep apnea on CPAP Transient ischemic attack Surgical History Surgical History (Updated 02/24/23 @ 23:44 by Fartun Santiago PA-C) History of bilateral knee arthroplasty History of cataract extraction Family History Family History (Updated 02/25/23 @ 08:47 by Erica Lew RN) Father Heart failure Mother Heart failure Diabetes mellitus Sibling Heart failure Diabetes mellitus Social History Social History (Updated 02/24/23 @ 23:45 by Fartun Santiago PA-C) Social History: Surrogate medical decision maker: Grace Whitezeyad, spouse. Code status: Full code. Smoking status: Never smoker Alcohol intake: current Substance use: never Substance use type: does not use Do You Feel Safe in your Home?: Yes Lack of Transportation: No Lack of Food: Never True Current Housing: I Have Housing Concerned About Future Housing: No Difficulty Paying Gas/Electric Bills: No Difficulty Paying for Meds: No Currently Unemployed: No Education: Bachelor's Degree Difficulty w/ Childcare or Family Care: No Living arrangements: with family Additional living arrangements comments: [place] They have 4 children. 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 Spiritual care concerns: No Meds Home Medications and Allergies Home Medications Medication Instructions Recorded Confirmed Type aspirin 81 mg tablet,delay
--- NOTE | 2023-02-25 12:39 | PM.DS ---
DS: Admitting Diagnosis Discharge Date 02/25/23 Admitting Diagnosis (1) Transient ischemic attack: ?Code(s): G45.9 - Transient cerebral ischemic attack, unspecified ?Status:?Acute (2) Hypertension: ?Code(s): I10 - Essential (primary) hypertension ?Status:?Acute (3) Hyperlipidemia: ?Code(s): E78.5 - Hyperlipidemia, unspecified ?Status:?Acute (4) Obstructive sleep apnea on CPAP: ?Code(s): G47.33 - Obstructive sleep apnea (adult) (pediatric) ?Status:?Acute DS: Discharge Diagnosis Discharge Diagnosis (1) Transient ischemic attack: Code(s): G45.9 - Transient cerebral ischemic attack, unspecified Status: Acute (2) Hypertension: Code(s): I10 - Essential (primary) hypertension Status: Acute (3) Hyperlipidemia: Code(s): E78.5 - Hyperlipidemia, unspecified Status: Acute (4) Obstructive sleep apnea on CPAP: Code(s): G47.33 - Obstructive sleep apnea (adult) (pediatric) Status: Acute DS: Summary Hospital Course Hospital Course: Per H&P, this is a very pleasant 82-year-old gentleman with history of transient ischemic attack, hyperlipidemia, and hypertension who presented to the emergency department via private vehicle from home for evaluation of slurred speech. The patient provides the following history. He had a TIA approximately 1 year ago and was taken off of clopidogrel just 2 weeks ago by his neurologist at [place]. Today he had several episodes slurred speech where he was having difficulties articulating what he was trying to say. also reports that he was briefly staring off into space. At 1 time he had an emotional outburst and was yelling nonsensically and was upset with his which is very unusual for him. He goes on to say however that he has been upset most ill this past week as he has lost 2 friends recently. His symptoms resolved by the time he arrived to the emergency department. He denies vertigo, visual changes, facial droop, difficulty swallowing, focal weakness, and paresthesias. No history of atrial fibrillation he denies sensations of racing heart palpitations. He has known history of carotid artery disease. Brain CT showed no acute findings. He is being admitted in this setting for TIA/stroke workup neurology consultation. In the ED he was given aspirin 324 mg x 1. The following med issues have been addressed during hospitalization TIA The patient presented to the emergency department for evaluation of difficulties speaking, an episode of staring, and emotional change He has lost 2 friends in the last week and a half or so and this has caused him to be quite emotional which is unusual for him. CT head shows no acute intracranial issues MRA neck September 30 2022 shows no significant stenosis, brain MRI shows no acute abnormality and that time telemetry overnight. Brain MRI ordered for a.m, No acute abnormality. Continue aspirin 81 mg daily, Lipitor 20 mg daily I am a. Resume clopidogrel. Neurology checks ordered q.4 hours. Neurology has been consulted and their input is appreciated. Neurologist recommends Plavix was discontinued at the [facility] given history of positive MRI for the microhemorrhages, and will continue to keep him off instructed explain to him? that he should continue on leave and baby aspirin every day but no more Plavix 2. he is being followed by the cardiologists here keep the follow-up with that disability hearing officer.? 3.? Gave him Ativan 0.5mg only 7 tablets to be taken 1 daily.? 4.? Follow up with his primary physician as well Neurologist recommends to discharge patient today Blood pressures Blood pressure stable Continue home medication Time Spent with Patient Time attestation: Total time spent providing and/or coordinating discharge services: Exam Narrative: GENERAL: Pleasant, in no acute distress. Well-nourished. - EYES: EOMI. Anicteric. - HENT: Moist mucous membranes. - LUNGS: Clear to auscultation bilat
== END 2023-02-25 13:45 | disposition home or self-care (01) ==
LOC: ANHED 14:52 → ANHIMU 21:05
PROVIDERS: Physician Assistant; Admitting Provider Internal Medicine; Emergency Provider Emergency Medicine; PCP Family Medicine Sports Medicine; Visit Provider Hospitalist
DX: G45.9 Transient cerebral ischemic attack, unspecified (principal); I10 Essential (primary) hypertension; E78.5 Hyperlipidemia, unspecified; G47.33 Obstructive sleep apnea (adult) (pediatric); Z99.89 Dependence on other enabling machines and devices; R94.31 Abnormal electrocardiogram [ECG] [EKG]; Z20.822 Contact with and (suspected) exposure to COVID-19; Z79.82 Long term (current) use of aspirin; Z79.899 Other long term (current) drug therapy; Z86.73 Personal history of transient ischemic attack (TIA), and cerebral infarction without residual deficits
CPT/HCPCS: 36415; 70450; 70551; 71045; 80053; 84484; 85025; 85610; 85730; 87637; 93005; 94002; 99285; A9270; G0378

== ENCOUNTER 2023-05-28 23:39 | Emergency (ER) | payer MEDICARE, BC, SELFPAY ==
--- NOTE | ~2023-05-28 | CT_ITS ---
EXAMINATION: CT brain wo con INDICATION: Word finding difficulty COMPARISON: 02/24/2023 TECHNIQUE: Standard unenhanced head CT. The dose-length product (DLP) was 681.00 mGy-cm. The mA was a djusted according to patient size. Iterative reconstruction technique was employed. FINDINGS: No acute intraparenchymal hemorrhage. No evidence of mass lesion. No evidence of acute infa rction. There is mild periventricular and subcortical hypodensity probably related to small vessel is chemic disease. There is mild prominence of the sulci and ventricles related to cerebral atrophy. Int racranial calcified cerebral atherosclerosis is noted. No extra-axial collections. No mass effect or midline shift. The orbits and soft tissues are unremarkable. There is mild mucosal thickening of the paranasal sinuses. IMPRESSION: 1. No acute intracranial abnormality. 2. Age related findings. Reviewed, dictated and finalized at location F.
--- NOTE | ~2023-05-28 | CT_ITS ---
EXAMINATION: CTA brain carotid DATE: 05/29/2023 00:02 INDICATION: Word finding difficulty TECHNIQUE: Computed tomographic angiography (CTA) of the head was performed with 100 mL Omnipaque-350 intravenous contrast. CTA of the neck was performed with intravenous contrast. The dose-length produ ct was 1137.46 mGy-cm. Maximum intensity projection and volume rendered 3D-reconstructions were creat ed by the technologist on a separate workstation. Automated exposure control and iterative reconstruc tion technique were employed. COMPARISON: None. FINDINGS: HEAD CTA: There is no acute intraparenchymal hemorrhage. No evidence of mass lesion. No evidence of a cute infarction. There is mild periventricular and subcortical hypodensity probably related to small vessel ischemic disease. There is mild prominence of the sulci and ventricles related to cerebral atr ophy. Intracranial calcified cerebral atherosclerosis is noted. There are no extra-axial collections. There is no mass effect or midline shift. Changes in the globes are likely from ocular lens surgery. There is mild mucosal thickening of the paranasal sinuses. There is no significant stenosis of the basilar artery or posterior cerebral arteries. There is no si gnificant stenosis of the intracranial internal carotid arteries or the right anterior or bilateral m iddle cerebral arteries. The left anterior cerebral artery A1 segment is hypoplastic. The anterior co mmunicating artery and posterior communicating arteries are normal. There is no aneurysm. NECK CTA: The thyroid gland is unremarkable. The submandibular and parotid glands are symmetric. Ther e is no lymphadenopathy. There are no masses identified. The airway is unremarkable. The superior med iastinum is unremarkable. There are no osseous abnormalities. There is 0% stenosis of the proximal right internal carotid artery relative to normal distal artery l umen diameter (NASCET criteria). There is 0% stenosis of the proximal left internal carotid artery re lative to normal distal artery lumen diameter. IMPRESSION: 1. No acute intracranial abnormality. 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 2. 0% stenosis of the proximal right internal carotid artery relative to normal distal artery lumen d iameter (NASCET criteria). 3. 0% stenosis of the proximal left internal carotid artery relative to normal distal artery lumen di ameter. Reviewed, dictated and finalized at location F. IMPRESSION: 1. No acute intracranial abnormality. 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 2. 0% stenosis of the proximal right internal carotid artery relative to normal distal artery lumen diameter (NASCET criteria). 3. 0% stenosis of the proximal left internal carotid artery relative to normal distal artery lumen diameter.
--- NOTE | ~2023-05-28 | XR_ITS ---
EXAMINATION: XR chest 1V INDICATION: Stroke TECHNIQUE: Frontal view of the chest is obtained COMPARISON: 02/24/2023 FINDINGS: The lungs are free of acute opacities. No pleural effusion or pneumothorax. The cardiomedia stinal silhouette is normal. IMPRESSION: 1. No acute cardiopulmonary abnormality. Reviewed, dictated and finalized at location F.
[2023-05-28 23:28] VITALS: O2SAT 97
[2023-05-28 23:36] VITALS: BP 144/79; PULSE 71; RESP 21; TEMP 36.7; O2SAT 97
--- NOTE | 2023-05-29 | ECG_ITS ---
Measurements Intervals [place] Rate: 71 P: 60 DC: 197 QRS: -13 QRSD: 93 T: 60 QT: 404 QTc: 440 Interpretive Statements SINUS RHYTHM VOLTAGE CRITERIA FOR LVH BASELINE ARTIFACT- I, II, III, AVL, AVF, V2 BORDERLINE ECG COMPARED TO ECG 02/24/2023 14:11:26 NO SIGNIFICANT CHANGES Electronically Signed On 05-29-2023 6:32:03 CDT by Isac To D.O.
[2023-05-29 00:05] VITALS: BP 144/79; PULSE 70; RESP 20; O2SAT 96
--- NOTE | 2023-05-29 00:07 | ED.NEUROSD ---
HPI - Neuro Symptoms/Deficit General Chief Complaint: Suspected CVA Stated Complaint: POSSIBLE CVA Time Seen by Provider: 05/28/23 23:41 History of Present Illness HPI Narrative: This is an 83-year-old male presenting for possible CVA. At (LKK) 10:45 p.m. the patient developed word-finding difficulty and confusion. EMS was called. By time he arrived the symptoms had resolved. This time the patient has no complaints. No word-finding difficulty. No numbness tingling weakness. Related Data Home Medications Medication Instructions Recorded Confirmed aspirin 81 mg tablet,delayed 81 mg PO DAILY 12/26/21 02/25/23 release atorvastatin 20 mg tablet 20 mg PO DAILY 12/26/21 02/25/23 benazepril 5 mg tablet 5 mg PO DAILY 12/26/21 02/25/23 finasteride 5 mg tablet 5 mg PO DAILY 02/25/23 02/25/23 Allergies Allergy/AdvReac Type Severity Reaction Status Date / Time nitroglycerin AdvReac Severe Other Verified 02/25/23 08:21 [facility] Past Medical History Medical History (Updated 05/29/23 @ 01:56 by Greg Lizarraga MD) Hyperlipidemia Hypertension Obstructive sleep apnea on CPAP Transient ischemic attack Surgical History Surgical History (Updated 02/24/23 @ 23:44 by Fartun Santiago PA-C) History of bilateral knee arthroplasty History of cataract extraction Family History Family History (Updated 02/25/23 @ 08:47 by Erica Lew RN) Father Heart failure Mother Heart failure Diabetes mellitus Sibling Heart failure Diabetes mellitus Social History Social History (Updated 02/24/23 @ 23:45 by Fartun Santiago PA-C) Social History: Surrogate medical decision maker: Grace Sameer, spouse. Code status: Full code. Smoking status: Never smoker Alcohol intake: current Substance use: never Substance use type: does not use Do You Feel Safe in your Home?: Yes Lack of Transportation: No Lack of Food: Never True Current Housing: I Have Housing Concerned About Future Housing: No Difficulty Paying Gas/Electric Bills: No Difficulty Paying for Meds: No Currently Unemployed: No Education: Bachelor's Degree Difficulty w/ Childcare or Family Care: No Living arrangements: with family Additional living arrangements comments: and lives with spouse in [place]. They have 4 children. 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 Spiritual care concerns: No Exam Narrative: APPEARANCE: No apparent distress. Head: atraumatic. EYES: EOMI, NOSE: Atraumatic NECK: Trachea midline RESPIRATORY: No increased rate of breathing CARDIOVASCULAR: RRR, ABDOMINAL: Non-distended MUSCULOSKELETAl: No obvious deformities NEURO: Alert.Cranial nerves 2-12 grossly intact. Sensation light touch, motor function cerebellar function intact for 4 extremities. Gait exam was normal. SKIN:: Warm, dry. Normal color PSYCHIATRIC: Normal affect NIH Stroke Scale/Score (NIHSS) from [email or web address] on 05/29/2023 All calculations should be rechecked by clinician prior to use RESULT SUMMARY: 0 points NIH Stroke Scale INPUTS: 1A: Level of consciousness ?> 0 = Alert; keenly responsive 1B: Ask month and age ?> 0 = Both questions right 1C: 'Blink eyes' & 'squeeze hands' ?> 0 = Performs both tasks 2: Horizontal extraocular movements ?> 0 = Normal 3: Visual george ?> 0 = No visual loss 4: Facial palsy ?> 0 = Normal symmetry 5A: Left arm motor drift ?> 0 = No drift for 10 seconds 5B: Right arm motor drift ?> 0 = No drift for 10 seconds 6A: Left leg motor drift ?> 0 = No drift for 5 seconds 6B: Right leg motor drift ?> 0 = No drift for 5 seconds 7: Limb Ataxia ?> 0 = No ataxia 8: Sensation ?> 0 = Normal; no sensory loss 9: Language/aphasia ?> 0 = Normal; no aphasia 10: Dysarthria ?> 0 = Normal 11: Extinction/inattention ?> 0 = No abnormality Course Vital Signs Vital signs: Vital Signs Temperature 98.1 F 05/28/23 23:36 Pulse Rate 71
[2023-05-29 00:08] LABS: Basophils Absolute Auto 0.1 K/mm3 (0.0-0.1); Basophils Percent Auto 0.7 % (0.2-1.2); Eosinophils Absolute Auto 0.5 K/mm3 (0-0.3); Eosinophils Percent Auto 5.7 % (0-4.4); Hematocrit 42.6 % (42.0-52.0); Hemoglobin 13.7 g/dL (14.0-18.0); Immature Granulocyte Absolute 0.03 K/mm3 (0.00-0.031); Immature Granulocyte Percent A 0.4 % (0-0.5); Lymphocytes Absolute Auto 2.62 K/mm3 (0.9-3.2); Lymphocytes Percent Auto 31.6 % (18.3-44.2); Mean Corpuscular HGB Conc 32.2 g/dl (32-36); Mean Corpuscular Hemoglobin 31.7 pg (26-34); Mean Corpuscular Volume 98.6 fl (80-100); Mean Platelet Volume 11.3 fl (7.4-10.4); Monocytes Percent Auto 11.8 % (2.6-8.5); Neutrophils Absolute Auto 4.1 K/mm3 (1.3-6.7); Neutrophils Percent Auto 49.8 % (45.5-73.1); Platelet Count Result 273 k/mm3 (150-375); Red Blood Count 4.32 M/mm3 (4.6-6.20); Red Cell Distribution Width 13.2 % (11.5-14.5); White Blood Count 8.3 K/mm3 (4.5-10.0)
[2023-05-29 00:16] VITALS: BP 144/77; PULSE 71; RESP 22; O2SAT 97
[2023-05-29 00:16] LABS: Alanine Aminotransferase 13 U/L (6-50); Albumin Level 3.8 g/dL (3.5-5.1); Alkaline Phosphatase 81 U/L (38-126); Anion Gap 5 mmol/L (8-16); Aspartate Amino Transferase 20 U/L (17-59); Bilirubin,Total 0.7 mg/dL (0.2-1.3); Blood Urea Nitrogen 16 mg/dL (9-20); Calcium 9.6 mg/dL (8.4-10.2); Carbon Dioxide 28 mmol/L (22-30); Chloride 104 mmol/L (98-107); Estimated CRCL calculation 60 ml/min; Estimated Glomerular Filt Rate > 60; Glucose 93 mg/dL (65-110); Potassium 3.9 mmol/L (3.4-5.0); Sodium 137 mmol/L (137-145)
[2023-05-29 00:39] LABS: Partial Thromboplastin Time 28.9 Seconds (22.3-36.8); Prothrombin Time 13.1 Seconds (11.1-14.7)
[2023-05-29 01:30] VITALS: BP 146/78; PULSE 71; RESP 24; O2SAT 97
[2023-05-29 02:00] VITALS: BP 140/76; PULSE 69; RESP 23; O2SAT 98
[2023-05-29 10:36] LABS: Estimated CRCL calculation 55 ml/min; Estimated Glomerular Filt Rate > 60
== END 2023-05-29 02:21 | disposition home or self-care (01) ==
PROVIDERS: Emergency Provider Emergency Medicine; PCP Family Medicine Sports Medicine
DX: R29.818 Other symptoms and signs involving the nervous system (principal); I10 Essential (primary) hypertension; E78.5 Hyperlipidemia, unspecified; G47.33 Obstructive sleep apnea (adult) (pediatric); Z86.73 Personal history of transient ischemic attack (TIA), and cerebral infarction without residual deficits; Z96.653 Presence of artificial knee joint, bilateral; Z98.49 Cataract extraction status, unspecified eye; Z79.82 Long term (current) use of aspirin; R94.31 Abnormal electrocardiogram [ECG] [EKG]; M47.812 Spondylosis without myelopathy or radiculopathy, cervical region
CPT/HCPCS: 36415; 70450; 70496; 70498; 71045; 80053; 82565; 85025; 85610; 85730; 93005; 99284; Q9967

== ENCOUNTER 2023-11-13 19:39 | Emergency (ER) | payer MEDICARE, BC, SELFPAY ==
--- NOTE | ~2023-11-13 | XR_ITS ---
EXAMINATION: XR chest 1V portable DATE: 11/13/2023 20:18 INDICATION: Cerebrovascular accident. TECHNIQUE: A single frontal view of the chest was obtained. COMPARISON: Chest single view 05/28/2023 FINDINGS: There is mild atelectasis in the lower lung zones. No pleural effusion or pneumothorax. Car diomegaly is noted. IMPRESSION: 1. Mild atelectasis in the lower lung zones. 2. Cardiomegaly. Reviewed, dictated and finalized at location A.
--- NOTE | ~2023-11-13 | CT_ITS ---
EXAMINATION: CTA brain carotid DATE: 11/13/2023 20:00 INDICATION: Cerebrovascular accident. TECHNIQUE: Computed tomographic angiography (CTA) of the head was performed with 100 mL Omnipaque-350 intravenous contrast. CTA of the neck was performed with intravenous contrast. Automated exposure co ntrol and iterative reconstruction technique were employed. The dose-length product was 1179.12 mGy-c m. Maximum intensity projection and volume rendered 3D-reconstructions were created by the technImonomii st on a separate workstation. COMPARISON: Head CT 11/13/2023 FINDINGS: HEAD CTA: There are scattered areas of low attenuation in the cerebral white matter. There is no intr acranial hemorrhage, acute infarction, or abnormal intracranial mass lesion. The ventricles are [place] l in size. There are likely changes of ocular lens replacement surgeries. There is mucosal thickening in the paranasal sinuses. The mastoid air cells are normal. Left vertebral artery is dominant. There is no significant stenosis of basilar artery or the posterior cerebral arteries. There is no signifi cant stenosis of the intracranial internal carotid arteries or anterior or middle cerebral arteries. Anterior communicating artery is normal. Left posterior communicating artery is normal. The right pos terior communicating artery is not identified. There is no aneurysm. NECK CTA: There are no pathologically enlarged lymph nodes. There is no significant stenosis of the v ertebral arteries. There is plaque in the proximal internal carotid arteries. There is 0% stenosis of the proximal right internal carotid artery relative to normal distal artery lumen diameter (NASCET c riteria). There is 0% stenosis of the proximal left internal carotid artery relative to normal distal artery lumen diameter. There is severe cervical spondylosis. IMPRESSION: 1. Moderate nonspecific cerebral white matter disease, which likely represents chronic small vessel i schemic disease. 2. No aneurysm or significant intracranial arterial stenosis. 3. 0% stenosis of the proximal internal carotid arteries relative to normal distal artery lumen diame ters (NASCET criteria). Reviewed, dictated and finalized at location A. IMPRESSION: 1. Moderate nonspecific cerebral white matter disease, which likely represents chronic small vessel ischemic disease. 2. No aneurysm or significant intracranial arterial stenosis. 3. 0% stenosis of the proximal internal carotid arteries relative to normal dis leroy artery lumen diameters (NASCET criteria).
--- NOTE | ~2023-11-13 | CT_ITS ---
EXAMINATION: CT brain wo con DATE: 11/13/2023 19:52 INDICATION: Cerebrovascular accident. TECHNIQUE: Computed tomography (CT) of the head was performed without intravenous contrast. The mA wa s adjusted according to patient size. Iterative reconstruction technique was employed. The dose-lengt h product was 681.00 mGy-cm. COMPARISON: Head CT 05/28/2023 FINDINGS: There are scattered areas of low attenuation in the cerebral white matter. There is no intr acranial hemorrhage, acute infarction, or abnormal intracranial mass lesion. The ventricles are italia l in size. There are likely changes of ocular lens replacement surgeries. There is mild mucosal thick ening in the paranasal sinuses. The mastoid air cells are normal. IMPRESSION: 1. Stable moderate nonspecific cerebral white matter disease, which likely represents chronic small v essel ischemic disease. 2. I discussed this case with Dr. Red. Reviewed, dictated and finalized at location A. IMPRESSION: 1. Stable moderate nonspecific cerebral white matter disease, which likely repr esents chronic small vessel ischemic disease. 2. I discussed this case with Dr. Red.
[2023-11-13 19:36] VITALS: BP 171/98; PULSE 97; RESP 15; O2SAT 98
--- NOTE | 2023-11-13 19:42 | ECG_ITS ---
Test Date: 2023-11-13 20:05:51 Measurements Intervals [place] Rate: 96 P: 42 MI: 190 QRS: -7 QRSD: 89 T: 63 QT: 353 QTc: 448 Interpretive Statements SINUS RHYTHM DELAYED PRECORDIAL R/S TRANSITION BASELINE ARTIFACT- I, III, AVL, V2 BORDERLINE ECG No previous ECG available for comparison Electronically Signed On 11-14-2023 06:48:10 CDT by Isac To D.O.
--- NOTE | 2023-11-13 19:42 | ED.NEUROSD ---
HPI - Neuro Symptoms/Deficit General Chief Complaint: Suspected CVA Stated Complaint: SPEECH PROBLEMS/CVA? History of Present Illness HPI Narrative: 83-year-old male presenting ED for evaluation for suspected TIA versus CVA. Approximately 630 patient had onset speech difficulty. Family states the patient had no focal deficit was able to ambulate to the ambulance on his own. When EMS picked up the patient he still had persistent speech symptoms. Upon arrival to the emergency department patient's symptoms have improved. Patient states he has had intermittent symptoms with this but typically the symptoms the last a few minutes. Patient has had follow-up with [place] [facility]. Related Data Home Medications Medication Instructions Recorded Confirmed aspirin 81 mg tablet,delayed 81 mg PO DAILY 12/26/21 02/25/23 release atorvastatin 20 mg tablet 20 mg PO DAILY 12/26/21 02/25/23 benazepril 5 mg tablet 5 mg PO DAILY 12/26/21 02/25/23 finasteride 5 mg tablet 5 mg PO DAILY 02/25/23 02/25/23 Allergies Allergy/AdvReac Type Severity Reaction Status Date / Time nitroglycerin AdvReac Severe Other Verified 02/25/23 08:21 Review of Systems Review of Systems: All systems reviewed & are unremarkable except as noted in HPI and below PMFSH Past Medical History Medical History (Updated 11/14/23 @ 04:52 by Yaniv Red MD) Hyperlipidemia Hypertension Obstructive sleep apnea on CPAP Transient ischemic attack Surgical History Surgical History (Updated 02/24/23 @ 23:44 by Fartun Santiago PA-C) History of bilateral knee arthroplasty History of cataract extraction Family History Family History (Updated 02/25/23 @ 08:47 by Erica Lew RN) Father Heart failure Mother Heart failure Diabetes mellitus Sibling Heart failure Diabetes mellitus Social History Social History (Updated 02/24/23 @ 23:45 by Fartun Santiago PA-C) Social History: Surrogate medical decision maker: Grace Estrella, spouse. Code status: Full code. Smoking status: Never smoker Alcohol intake: current Substance use: never Substance use type: does not use Do You Feel Safe in your Home?: Yes Lack of Transportation: No Lack of Food: Never True Current Housing: I Have Housing Concerned About Future Housing: No Difficulty Paying Gas/Electric Bills: No Difficulty Paying for Meds: No Currently Unemployed: No Education: Bachelor's Degree Difficulty w/ Childcare or Family Care: No Living arrangements: with family Additional living arrangements comments: and lives with spouse in [place]. They have 4 children. 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 Spiritual care concerns: No Exam Narrative: APPEARANCE: Well appearing, no pain, no distress, well-nourished. HEAD: normocephalic, atraumatic. EYES: PERRLA/EOMI, conjunctivae clear. NOSE: Normal no drainage EARS:TMS clear with good light reflex. THROAT: Pharynx clear, no exudate. NECK: Supple. No adenopathy, no masses. RESPIRATORY: Airway patent, respirations nonlabored. Clear to auscultation bilaterally, no rales, rhonchi, wheezing. CARDIOVASCULAR: Regular rate and rhythm without murmurs rubs or gallops. ABDOMINAL: Soft, nontender, nondistended, normal bowel sounds MUSCULOSKELETAL: Moves all extremities. Strength/ROM intact, No edema, No calf tenderness. NEURO: Alert. Cranial nerves II through XII intact. Grossly intact. Speech deficit described by EMS has resolved SKIN: Warm, dry. Normal Color Course Vital Signs Vital signs: Vital Signs Pulse Rate 97 11/13/23 19:36 Respiratory Rate 15 11/13/23 19:36 Blood Pressure 171/98 H 11/13/23 19:36 Pulse Oximetry 98 11/13/23 19:36 Temperature 98 F 11/13/23 22:08 Pulse Rate 89 11/13/23 22:08 Respiratory Rate 16 11/13/23 22:08 Blood Pressure 156/84 H 11/13/23 22:08 Pulse Oximetry 99 11/13/23 22:08 Oxygen Deliver
[2023-11-13 19:53] LABS: Estimated Glomerular Filt Rate 58
[2023-11-13 19:56] LABS: Basophils Absolute Auto 0.1 K/mm3 (0.0-0.1); Basophils Percent Auto 0.7 % (0.2-1.2); Eosinophils Absolute Auto 0.4 K/mm3 (0-0.3); Hematocrit 45.2 % (42.0-52.0); Immature Granulocyte Absolute 0.02 K/mm3 (0.00-0.031); Immature Granulocyte Percent A 0.2 % (0-0.5); Lymphocytes Absolute Auto 2.15 K/mm3 (0.9-3.2); Lymphocytes Percent Auto 23.4 % (18.3-44.2); Mean Corpuscular HGB Conc 33.2 g/dl (32-36); Mean Corpuscular Hemoglobin 32.6 pg (26-34); Mean Corpuscular Volume 98.3 fl (80-100); Mean Platelet Volume 11.7 fl (7.4-10.4); Monocytes Percent Auto 10.3 % (2.6-8.5); Neutrophils Absolute Auto 5.6 K/mm3 (1.3-6.7); Neutrophils Percent Auto 61.4 % (45.5-73.1); Platelet Count Result 251 k/mm3 (150-375); Red Cell Distribution Width 13.8 % (11.5-14.5); White Blood Count 9.2 K/mm3 (4.5-10.0)
[2023-11-13 19:59] VITALS: BP 171/98; PULSE 107; RESP 15; TEMP 37.1; O2SAT 97
[2023-11-13 20:07] VITALS: PULSE 97; O2SAT 98
[2023-11-13 20:13] LABS: Alanine Aminotransferase 12 U/L (6-50); Alkaline Phosphatase 78 U/L (38-126); Anion Gap 8 mmol/L (4-12); Aspartate Amino Transferase 18 U/L (17-59); Bilirubin,Total 0.8 mg/dL (0.2-1.3); Blood Urea Nitrogen 17 mg/dL (9-20); Calcium 9.9 mg/dL (8.4-10.2); Carbon Dioxide 29 mmol/L (22-30); Chloride 102 mmol/L (98-107); Estimated CRCL calculation 55 ml/min; Estimated Glomerular Filt Rate > 60; Glucose 132 mg/dL (65-110); Potassium 4.6 mmol/L (3.4-5.0); Sodium 139 mmol/L (137-145)
[2023-11-13] MEDS: ASPIRIN 81 MG CHEWABLE TABLET 324 MG PO (20:23)
[2023-11-13 20:28] LABS: Partial Thromboplastin Time 26.8 Seconds (22.3-36.8); Prothrombin Time 13.8 Seconds (11.1-14.7)
--- NOTE | 2023-11-13 21:28 | PC.NURSE ---
[facility] tx called to advise that patient has been accepted to [facility]. No bed at this time.
--- NOTE | 2023-11-13 22:07 | PC.NURSE ---
Attempted to call report to [facility]. Per audio visual secretary no is able to take report at the moment.
[2023-11-13 22:08] VITALS: BP 156/84; PULSE 89; RESP 16; TEMP 36.6; O2SAT 99
[2023-11-24 15:37] LABS: Glucose Point of Care 144 mg/dl (65-105)
== END 2023-11-13 22:58 | disposition short-term general hospital (02) ==
PROVIDERS: Emergency Provider Emergency Medicine; PCP Family Medicine Sports Medicine
DX: G45.9 Transient cerebral ischemic attack, unspecified (principal); I10 Essential (primary) hypertension; E78.5 Hyperlipidemia, unspecified; G47.33 Obstructive sleep apnea (adult) (pediatric); Z86.73 Personal history of transient ischemic attack (TIA), and cerebral infarction without residual deficits; Z79.82 Long term (current) use of aspirin
CPT/HCPCS: 36415; 70450; 70496; 70498; 71045; 80053; 82948; 85025; 85610; 85730; 93005; 99285; A9270; Q9967

== ENCOUNTER 2024-09-13 15:24 | Emergency (ER) | payer MEDICARE, BC, SELFPAY ==
--- NOTE | ~2024-09-13 | XR_ITS ---
EXAMINATION: XR finger 2nd LT min 2V DATE: 09/13/2024 16:02 INDICATION: Left index finger injury TECHNIQUE: Dorsal palmar, lateral and oblique views of the left second digit were obtained COMPARISON: None FINDINGS: Minimally displaced intra-articular fracture at the ulnar side of the base of the second proximal pha lanx. No other acute fractures identified. There is severe osteoarthritis at the profiled interphalan geal joints and the second and third digits at the fourth proximal interphalangeal joint. A few of th roxy demonstrate central erosions with gullwing configuration consistent with erosive osteoarthritis. There is secondary mild ulnar angulation at the second and third proximal interphalangeal joints. The re is additional polyarticular osteoarthritis, moderate severity at the first carpometacarpal joint a nd mild at the first and second metacarpophalangeal and several additional joints at the left wrist a nd carpus. IMPRESSION: 1. Minimally displaced intra-articular fracture at the ulnar base of the left second proximal phalanx . 2. 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 Reviewed, dictated and finalized at location A. IMPRESSION: 1. Minimally displaced intra-articular fracture at the ulnar base of the left s econd proximal phalanx. 2. Severe erosive polyarticular osteoarthritis at the visualized interphalangea l joints.
--- OUTSIDE RECORDS SUMMARY | 2024-09-13 15:26 | XMS_ITS | Clinical Summary ---
Author Organization [facility] [address] [place] [address] Care Team Providers Care Transportation Manager Name Role Phone Krysten Webb MD Unavailable [phone] Ashwin Hughes MD Unavailable Adonay Carlos MD Unavailable Colby Adams MD Unavailable [phone] Rodrigo Blanchard MD Unavailable Jeff Young MD Primary Care Provider Allergies Active Allergy Reactions Criticality Noted Date Comments Amlodipine Other (See comments) Low 05/15/202101/2018 Mood swings Tamsulosin Rash Medium 02/03/2023 Hydrochlorothiazide Other (See comments) Low 01/2018 mood swings Nitroglycerin Hypotension High Medications loratadine (CLARITIN) 10 mg tablet Take 1 tablet (10 mg total) by mouth as needed Active hydrocortisone 2.5 % cream Apply topically as needed 05/10/19 23 Active aspirin 81 mg enteric coated tablet Take 1 tablet (81 mg total) by mouth daily Active tadalafiL (ADCIRCA) 10 mg tabletIndicatio ns:Erectile dysfunction, unspecified erectile dysfunction type Take 1 tablet (10 mg total) by mouth every other day as needed for erectile dysfunction Take 1 hr prior to intercourse, max 1 tab in 48 hrs 45 tablet 1 08/11/19 24 Active levETIRAcetam (KEPPRA) 250 mg tablet Take 1 tablet (250 mg total) by mouth 2 (two) times a day 180 tablet 3 01/05/20 24 025 Active evolocumab (Repatha SureClick) 140 mg/mL pen injector Inject 1 mL (140 mg total) under the skin every 14 (fourteen) days 2 mL 11 01/28/20 24 Active finasteride (PROSCAR) 5 mg tablet Take 1 tablet (5 mg total) by mouth daily 30 tablet 11 04/06/19 25 026 Active cyanocobalamin (Vitamin B-12) 1,000 mcg tabletIndicatio ns:Prevention of Vitamin B12 Deficiency Take 2 tablets (2,000 mcg total) by mouth daily 180 tablet 3 04/07/19 25 026 Active benazepriL (LOTENSIN) 5 mg tablet 05/25/19 25 Active ketoconazole (NIZORAL) 2 % shampoo USE SHAMPOO 2 TO 3 TIMES A WEEK. LEAVE ON FOR 5 MINUTES PRIOR TO WASHING OFF. 06/18/19 25 Active mupirocin (BACTROBAN) 2 % ointment Apply topically 3 (three) times a day 22 g 07/05/19 25 Active rosuvastatin (CRESTOR) 20 mg tablet TAKE 1 TABLET(20 MG) BY MOUTH DAILY 30 tablet 4 09/03/19 25 Active rosuvastatin (CRESTOR) 20 mg tablet Take 1 tablet (20 mg total) by mouth daily 30 tablet 11 09/16/19 24 025 Discontinued Active Problems Problem Noted Date Diagnosed Date Vitamin B12 deficiency 05/21/2024 Assessment & Plan (05/21/2024 11:13 AM CDT): - known B12 deficiency hx - recheck labs, - on vitamin B12 supplementation daily Lab Results Component Value Date VITB12 218 (L) 11/14/2023 Moderate aortic regurgitation 01/20/2024 Cerebral amyloid angiopathy 12/04/2023 Assessment & Plan (05/24/2024 2:48 PM CDT): Chronic condition, better controlled Cerebral amyloid angiopathy is managed by a neurologist. He experiences episodes mimicking stroke symptoms but has not had a stroke. Keppra is prescribed to strengthen vessel damon and prevent further episodes. No episodes in the past seven months indicate well-managed condition. The neurologist aims to maintain abnormally low cholesterol levels and [id number] blood pressure to manage CAA. - Continue Keppra as prescribed. - Monitor for new neurological symptoms or episodes. Assessment & Plan (12/04/2023 4:49 PM CDT): This is a suspected diagnosis that was given a more formal confirmation of diagnosis during recent hospitalization. He has had multiple transient episodes in his working with Neurology. He is on Keppra for this. I suspect the Keppra recently start after last admission is part of the cause of the increased fatigue that he has been experiencing. Discussed option that we may consider seeing if we can decrease his Keppra to 250 mg twice daily or 500 once a day but I am not as familiar with the use of Keppra for this indication so like to confirm with his neurologist this would be acceptable. Fatigue 12/04/2023 Assessment & Plan (12/04/2023 4:48 PM CDT): Acute. Suspect this may be a side effect of Keppra. Patient to reach out to his neurologist. Home BP is borderline to tight. Discussed options to try a half tab on benazpril with close monitoring. all BPs should stay under 130/80, if trends up then would have to go back to full tab daily. They will consider this if Keppra adjustment is not made or symptoms persist despite changing Keppra dosing. If adjustments made they will update us a few weeks after the change with his blood pressure reading Jock itch 12/04/2023 Actinic keratosis 12/04/2023 Overview (05/21/2024): Follows with Dermatology Assessment & Plan (05/21/2024 11:16 AM CDT): - following with skin doctor - Dermatology for AKs on the scalp Erectile dysfunction 08/11/2023 Overview (08/11/2023): Struggles some. Reports Viagra 100 no longer effective. Trial of Cialis. Discussed use and dosing given his age Infrarenal abdominal aortic aneurysm (AAA) witho ut rupture 08/23/2022 Overview (08/23/2022): Borderline aneurysmal dilatation of the infrarenal abdominal aorta and mild fusiform aneurysmal dilatation of the bilateral common iliac arteries noted incidentally on CT abdomen pelvis 04/12/2022. Iliac arteries measure up to 18 mm in aortic aneurysm area measures up to 2.8 cm Assessment & Plan (08/11/2023 6:54 PM CDT): Infrarenal abdominal aorta size remains borderline at 2.[address] abdomen and pelvis 03/2023. Renal cyst 08/23/2022 Overview (08/23/2022): Multiple bilateral renal cyst on CT abdomen pelvis 04/12/2022. Largest measuring 15.5 cm additionally there was a 13 mm left mid renal pole cyst Atherosclerosis of anvik coronary artery of socrates andrade heart 08/23/2022 Overview (08/23/2022): Coronary artery disease and atherosclerotic vascular disease noted on CT abdomen and pelvis 04/12/2022 at [facility] Assessment & Plan (08/11/2023 6:53 PM CDT): Chronic. Patient has nonocclusive coronary atherosclerotic plaques on prior imaging. Continue risk factor modification with ASA, atorvastatin and blood pressure control Atherosclerosis of aorta 07/30/2022 Assessment & Plan (08/11/2023 6:53 PM CDT): Chronic. Incidental on prior imaging. Continue atorvastatin 80 mg daily and aspirin Benign prostatic hyperplasia with nocturia 07/30 Assessment & Plan (05/21/2024 11:16 AM CDT): - chronic condition, stable status - currently on Finasteride 5 mg daily - some nocturia 2-3 at this time - continue current management Assessment & Plan (08/11/2023 6:55 PM CDT): Mild symptoms. Continue finasteride. Monitor Personal history of simple renal cyst 04/30/2022 Assessment & Plan (08/11/2023 6:55 PM CDT): Chronic. Patient has a very large left renal cyst on CT abdomen and pelvis but no significant enlarged right abdominal masses. He does have a few tiny right abdominal renal cyst. Nothing to explain his area of intermittent fullness or tightness to the right upper quadrant. We will monitor H/O TIA (transient ischemic attack) and stroke 1 Overview (02/10/2023): MRI brain 12/27/2022 showed signs of a small acute lacunar infarct in the right frontal lobe quiroz radiata corresponding CTA brain and carotid was negative for any large vessel occlusion or severe carotid or vertebral stenosis. CT head done at that time showed signs of old lacunar infarcts in the bilateral basal ganglia. Per neurology, MRI brain more likely consistent with a advanced small-vessel disease and not consistent with cerebral amyloid angiopathy Assessment & Plan (08/11/2023 6:52 PM CDT): Patient has had had a few episodes of potential TIAs or strokes. Exact cause of these episodes has been unclear. He sees Neurology and Cardiology. Aggressive risk factor modification recommended with ASA, tight cholesterol control and blood pressure control. There was signs of an old lacunar infarct on prior imaging JERRY on CPAP 07/03/2021 Assessment & Plan (05/21/2024 11:12 AM CDT): - chronic condition, stable status - compliant with CPAP use for JERRY - continue current management Assessment & Plan (08/11/2023 6:52 PM CDT): Chronic. Reports good CPAP compliance. Continue nightly Primary osteoarthritis of right knee 06/25/2021 Overview (06/25/2021): Added automatically from request for surgery [id number] Intermittent memory loss 05/15/2021 Assessment & Plan (08/11/2023 6:53 PM CDT): Patient has a history of mild intermittent memory loss. Overall he reports it has not too bad. He has been offered option to see specialist for evaluation but deferred. His B12 level recently was little bit low so he is started B12 2000 mcg daily Essential hypertension 12/24/2017 Assessment & Plan (05/21/2024 11:09 AM CDT): Chronic. Well-controlled in office today. Home blood pressure readings in the 1 teens. I do worry some of the fatigue could be from 2 tighter control. If symptoms of fatigue persists with potential change in Keppra then we may consider trial of the half tab of his benazepril with close monitoring. His blood pressure goal is less than 130/80. Discussion had with the patient Blood Pressure Management BP Readings from Last 3 Encounters: 05/21/24 112/72 05/05/24 125/80 04/07/24 125/87 Chronic condition Status - is adequately controlled but low BP readings at home, has had 2 falls recently Current medications are: Benazepril 5 mg daily --> discontinue medication Patient denies any side effects or adverse side effects from the medication/s. Follow a low salt diet Monitor blood pressure regularly at home The ASCVD Risk score (Romy LOERA, et al., 2019) failed to calculate for the following reasons: The 2019 ASCVD risk score is only valid for ages 40 to 79 Lab Results Component Value Date LDLCALC 98 11/14/2023 Lab Results Component Value Date GLUCOSE 108 11/14/2023 CALCIUM 9.4 11/14/2023 SODIUM 138 11/14/2023 POTASSIUM 4.4 11/14/2023 CO2 28 11/14/2023 CHLORIDE 103 11/14/2023 BUNSER 15 11/14/2023 CREATININE 1.07 11/14/2023 Assessment & Plan (12/04/2023 4:49 PM CDT): Chronic. Well-controlled in office today. Home blood pressure readings in the 1 teens. I do worry some of the fatigue could be from 2 tighter control. If symptoms of fatigue persists with potential change in Keppra then we may consider trial of the half tab of his benazepril with close monitoring. His blood pressure goal is less than 130/80. Discussion had with the patient Assessment & Plan (08/11/2023 6:52 PM CDT): Chronic. Controlled. Continue benazepril Hypercholesteremia 01/01/2017 Assessment & Plan (05/21/2024 11:18 AM CDT): - chronic condition - status: is suboptimally controlled. - current management/medications: currently on Repatha and Rosuvastatin 20 mg daily - both - other comorbid conditions: hx of CVA - patient is compliant with medications. - most recent LDL as shown below - maintain a healthy weight, diet - will monitor closely - recheck labs, order placed The current medical regimen is effective; continue present plan and medications. Lab Results Component Value Date LDLCALC 98 11/14/2023 Lab Results Component Value Date CHOL 170 11/14/2023 CHOL 146 07/02/2023 CHOL 252 (H) 02/07/2023 POCCHOL 124 05/27/2022 POCCHOL 156 05/15/2021 POCCHOL 151 05/03/2020 Lab Results Component Value Date HDL 49 11/14/2023 HDL 45 07/02/2023 HDL 43 02/07/2023 POCHDL 51 05/27/2022 POCHDL 52 05/15/2021 POCHDL 34 05/03/2020 Lab Results Component Value Date LDLCALC 98 11/14/2023 LDLCALC 57 07/02/2023 LDLCALC 160 (H) 02/07/2023 POCLDL 50 05/27/2022 POCLDL 78 05/15/2021 POCLDL 72 05/03/2020 SCRLDL 66 01/02/2017 Lab Results Component Value Date TRIG 128 11/14/2023 TRIG 221 (H) 07/02/2023 TRIG 244 (H) 02/07/2023 POCTRIG 116 05/27/2022 POCTRIG 128 05/15/2021 POCTRIG 225 05/03/2020 Assessment & Plan (08/11/2023 6:52 PM CDT): Chronic. Tolerates atorvastatin. He is now on 80 mg a day. Targeting an LDL goal of least less than 70 with optimal less than 55. Continue atorvastatin Assessment & Plan (01/01/2017 7:16 PM CDT): Takes atorvastatin for general cholesterol reduction, no known vascular disease, no recent lipids available. Morbid obesity with BMI of 40.0-44.9, adult 12/09 Assessment & Plan (05/21/2024 11:04 AM CDT): Wt Readings from Last 3 Encounters: 05/21/24 109.9 kg (242 lb 3.2 oz) 05/05/24 110.2 kg (243 lb) 04/07/24 109.5 kg (241 lb 6.4 oz) Body mass index is 42.9 kg/m . - chronic condition, not at goal - BMI Follow-up includes: nutrition counseling, exercise counseling and education provided - Recommend to exercise at least 30 minutes moderate to vigorous exercise most days of the week. (minimum 150 minutes weekly) - Co-morbidities - JERRY on CPAP, hypertension, hyperlipidemia Assessment & Plan (12/04/2023 4:50 PM CDT): Chronic. Suboptimally controlled. Encouraged healthy diet and lifestyle Assessment & Plan (08/11/2023 6:52 PM CDT): Chronic. Suboptimally controlled. Encouraged healthy diet, exercise, weight loss Assessment & Plan (01/01/2017 7:31 PM CDT): Patient is concerned about his risk of heart disease but his morbid obesity may be more of a health risk. Has lost some wt since senior living, but none in last few months. Resolved Problems Problem Noted Date Diagnosed Date Resolved Date TIA (transient ischemic attack) 11/14/2023 05/24/2024 COVID 01/02/2022 07/30/2022 Morbid (severe) obesity due to excess calories 01/02/2022 08/11/2023 Arthritis of knee 07/05/2021 02/03/2023 Preoperative cardiovascular examination 05/15/2021 01/02/[address] 12/27/2017 08/11/19 24 Chest discomfort 01/01/2017 07/30/2022 Assessment & Plan (01/01/2017 7:31 PM CDT): Atypical chest discomfort a couple months ago, intermittent spells, resolved, no recurrence. EKG today shows sinus rhythm rate 92, small Q-waves in 3 and AVF, likely not clinically significant Highly unlikely to be cardiac in origin. No further evaluation needed at this point. Reassurance provided. Other hyperlipidemia 01/01/2017 017 Assessment & Plan (01/01/2017 7:16 PM CDT): Takes atorvastatin for general cholesterol reduction, no known vascular disease, no recent lipids available. Chronic pain syndrome 01/01/20172024 Assessment & Plan (01/01/2017 7:18 PM CDT): Chronic back and leg pain, aggravated by morbid obesity. Arthritis 12/27/2017 Encounters Date Type Department Care Team Description 09/13/2024 3:30 PM CDT Office Visit [facility] at [address] [address] Lashay Valdovinos PA Hand injury, left, initial encounter (Primary Dx) 07/14/2024 Telephone [facility] [address] [place] [address] Jyoti Henry MA DME 07/13/2024 1:45 PM CDT Office Visit [facility] [address] [place] [address] Ney Rothman MD JERRY on CPAP (Primary Dx); Hypersomnia 07/04/2024 4:15 PM CDT Office Visit [facility] Medical [facility] at [address] [address] Lashay Valdovinos PA Rash (Primary Dx) 06/15/2024 Telephone [facility] Scheduling [address] [place] [address] Ney Rothman MD Scheduling Appointments from Last 3 Months Immunizations Immunization Administration Dates Next Due Hep A, Adult 08/10/2011 Influenza, Quad, Adjuvantated, Intramuscular Influenza, Quadrivalent, Hig h Dose, Preservative Free, Intrr 12/21/2021 Influenza, Quadrivalent, Spl it, Preservative Free, Intramuscular 01/08/2019 Influenza, Trivalent, High D ose, Split, Preservative Free, Intramuscular 12/04/2023 Influenza, Trivalent, IM (MDV) 01/08/2013 Meningococcal Polysaccharide (MenABCWY-TT CONJUGATE) (MenB) (Penbraya) 08/10/2011 Pneumococcal Conjugate PCV 13 02/13/2016 Pneumococcal Polysaccharide PPV23 01/12/2014,03/2012 RSV Vaccine, Pref, Recombina nt, Subunit, Adjuvanted, PF, IM (Arexvy) 11/29/2022 Tdap 10/01/2023,03/16/2013 Typhoid, Unspecified 08/10/2011 Yellow Fever 08/10/2011 ZOSTER LIVE 01/12/2014 ZOSTER Recombinant 01/08/2019,10/05/2018 Surgical History Surgery Date Site/Laterality Comments KNEE SURGERY 03/10/1995 - 03/09/1996 Left R meniscectomy, L ORIF COLONOSCOPY FRACTURE SURGERY knee fracture TOTAL KNEE ARTHROPLASTY 2020 Right CATARACT EXTRACTION ANGIOPLASTY 2020 SMALL INTESTINE SURGERY JOINT REPLACEMENT Medical History Medical History Date Comments Hypertension Hypertension Sleep apnea on CPAP Arthritis Hyperlipidemia GERD (gastroesophageal reflux disease) Cataract 2010 Covid 01/02/2022 Tuberculosis Autoimmune disease Chickenpox Family History Medical History Relation Name Comments Aortic aneurysm Father Perez Rowell ?throacic Arthritis Father Perez Rowell Dementia Father Perez Rowell Heart disease Father Perez Rowell Alzheimer's disease Mother Annette Rowell Arthritis Mother Annette Rowell Hypertension Mother Annette Rowell Stroke Mother Annette Rowell Stroke; Caus e of : Stroke Arthritis Sister 1 1Carol Fearn Hypertension Sister 1 1Carol Fearn Hypertension; Arthritis Sister 2 2Chris Stits Hypertension Sister 2 2Chris Stits Hypertension; Congenital heart disease Sister 3 Parris 3 Con gential Heart Disease; Cause of : Congential Heart Disease Early Sister 3 Parris 3 Heart disease Sister 3 Parris 3 Colon cancer Neg Hx Relation Name Status Comments Father Perez Rowell Mother Annette Rowell Sister 1 1Carol Fearn Sister 2 2Chris Stits Alive Sister 3 Parris 3 Social History Tobacco Use Types Packs/Day Years Used Date Smoking Tobacco: Never Smokeless Tobacco: Never Tobacco Cessation:Counseling Given: Not Answered Comments:Was a brief social smoker and high school Alcohol Use Standard Drinks/Week Comments Yes 0 (1 standard drink = 0.6 oz pur e alcohol) AUDIT-C Answer Date Recorded Q1: How often do you have a drink containing alc ohol? 2-4 times a month 12/04/2023 Q2: How many drinks containi ng alcohol do you have on a typical day when you are drinking? 3 or 4 12/04/2023 Q3: How often do you have si x or more drinks on one occasion? Monthly 12/04/2023 PHQ-2 Answer Date Recorded PHQ-2 Total Score (If total score is 3 or more points, staff should administer the PHQ-9) 0 05/21/2024 Personal Safety Answer Date Recorded Have you ever been in or are you currently in a harmful physical or emotional relationship or is someone making you feel afraid or unsafe? 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 [employer] Gender Identity Male 06/21/2020 10:23 AM CDT Sexual Orientation Straight 06/16/2021 3: 47 PM CDT Obstetrics History Last Filed Vital Signs Vital Sign Reading Time Taken Comments Blood Pressure 148/88 09/13/2024 2:47 PM CDT Pulse 100 09/13/2024 2:47 PM CDT Temperature 37.1 C (98.7 F) 09/13/2024 2:47 PM CDT Respiratory Rate 20 09/13/2024 2:47 PM CDT Oxygen Saturation 97% 09/13/2024 2:47 PM CDT Inhaled Oxygen Concentration - - Weight 109.8 kg (242 lb) 09/13/2024 2:47 PM CDT Height 160 cm (5' 3) 07/13/2024 1:42 PM CDT Body Mass Index 42.87 07/13/2024 1:42 PM CDT Plan of Treatment Upcoming Encounters Date Type Department Care Team (Late st Contact Info) Description 09/13/2024 3:30 PM CDT Office Visit [facility] at [address] [address] Lashay Valdovinos PA [address] [place] [address] [address] [place] [address] Hand injury, left, initial encounter (Primary Dx) Health Maintenance Due Date Last Done Comments Covid-19 Vaccine (2023-2 5 season) 2024 12/04/2023, 06/26/2023, 11/30/2022, Additional history exists Well Visit 65+ 08/10/2024 08/11/2023, 02/03/2023 Influenza Vaccine (#1) 2024 , 11/29/2022, 12/21/2021, Additional history exists Depression Screening 05/21/2025 05/21/2024, 11/18/2023, 11/13/2023, Additional history exists Fall Risk Assessment 05/21/2025 05/21/2024, 01/05/2024, 11/14/2023, Additional history exists DTaP/Tdap/Td Vaccine (3 - Td or Tdap) 09/30/2033 10/01/2023, 03/16/2013 Pneumococcal vaccine 65+ Completed 016, 01/12/2014, 01/08/2013 Zoster Vaccine Completed 01/08/2019, 09/08, 01/12/2014 Hepatitis B Screening Completed 05/28/2024 Medical Devices Implanted Type Area Document Imaging Manager Device Identifier Shelf Expiration Date Model / Serial / Lot [employer] Smartset Medium Viscosity Cement 40gm Bone Gentamicin [id number] - Sna - [id number] Implanted:Qty: 1 on 07/05/2021 by Brant Wakefield MD at [facility] Bone Cement Right: Knee [employer] 12/07/2022 [id number] / NA / [id number] [employer] Smartset Medium Viscosity Cement 40gm Bone Sterile 3122-040 - Sna - [id number] Implanted:Qty: 1 on 07/05/2021 by Brant Wakefield MD at [facility] Bone Cement Right: Knee [employer] [id number] 08/07/2021 3122-040 / NA / [id number] [employer] [id number] Attune Cemented Cruciate Retaining Knee Right 6 Component Femoral - Sna - [id number] Implanted:Qty: 1 on 07/05/2021 by Brant Wakefield MD at [facility] Other - see comments Right: Knee [employer] [id number] 09/06/2029 [id number] / NA / [id number] Description:Implant pause pe rformed [employer] [id number] Attune S+ Cement Fix Bearing Knee 7 Baseplate Tibial - Sna - [id number] Implanted:Qty: 1 on 07/05/2021 by Brant Wakefield MD at [facility] Other - see comments Right: Knee [employer] [id number] 02/06/2031 [id number] / NA / [id number] Description:Implant pause pe rformed [employer] [id number] Insert Attune Right Medial Stabilized Size 6 8mm - Sna - [id number] Implanted:Qty: 1 on 07/05/2021 by Brant Wakefield MD at [facility] Other - see comments Right: Knee [employer] [id number] 02/06/2029 [id number] / NA / [id number] Description:Implant pause pe rformed Plate Plate Left: Leg Description:Plate and screws Procedures Procedure Name Priority Date/Time Associated Diagnosis Comments HEMOGLOBIN A1C Routine 07/19/2024 LIPID PANEL Routine 07/19/2024 EGFR Routine 07/19/2024 POCT RAPID STREP Routine 07/04/2024 4:48 PM CDT Rash from Last 3 Months Results * EGFR (07/19/2024) SCRIBED eGFR in NonAfrican Salvadorean 67.7 EXTERNAL LAB us Historical Provider HEALTH MAINTENANCE Final Result EXTERNAL LAB * LIPID PANEL (07/19/2024) Pathologist [facility] SCRIBED Cholesterol, Total 100 30 - 199 mg/dL SCRIBED Triglycerides 147 <=149 mg/dL SCRIBED HDL 52 >=40 mg/dL SCRIBED LDL 24 <=129 mg/dL Historical Provider HEALTH MAINTENANCE Final Result * (ABNORMAL) HM HEMOGLOBIN A1C (07/19/2024) Pathologist [facility] SCRIBED Hemoglobin A1c 5.8(A) 4.0 - 5.6 % [facility] Provider HEALTH MAINTENANCE Final Result * POCT rapid strep A (07/04/2024 4:48 PM CDT) Pathologist [facility] Rapid Strep A, POC Negative Negative Swab 07/04/2024 4:48 PM CDT Lashay WALKER POINT OF CARE TEST ORDER ZACKERY Final Result from Last 3 Months Insurance MEDICARE [facility] Robert [place], [place] [id number] MEDICARE [facility] FEDERAL Robert [place], [place] [id number] Advance Directives For more information, please contact: [phone] Documents on File Type Date Recorded Patient Machine Straw Hat Presser Expl anation Advance Directives and Livin g Will 07/05/2021 6:56 AM * Full Code (Latest Code Status on File) Date Activated Date Inactivated Comments 11/14/2023 12:06 AM 11/14/2023 10:06 PM * Full Code Date Activated Date Inactivated Comments 07/05/2021 1:06 PM 07/06/2021 5:10 PM Care Teams Transportation Manager Relationship Specialty Start Date End Date Jeff Young MD [address] [facility] [address] [place] [address] PCP - General Family Medicine 08/18/24 MichaelKrysten mcintyre MD Consulting Physician Cardiology 02/03/23 Ashwin Hughes MD [address] [facility] [place] [address] Consulting Physician Urology 02/03/23 Adonay Carlos MD [address] [facility] [address], [place] [address] Referring Physician Dermatology 08/11/23 Colby Adams MD [address] [facility] [place], [address] [address] Consulting Physician Neurology 08/11/23 Rodrigo Blanchard MD [address] [facility] [address] [facility] [address] [facility], [facility] [address] [place] [address] Consulting Physician Cardiology 05/21/24
--- OUTSIDE RECORDS SUMMARY | 2024-09-13 15:26 | XMS_ITS | Continuity of Care Document ---
Author Organization [facility] [facility] Address [address] [facility] [address] [place] [address] Phone Care Team Providers Care Lube Technician Name Role Phone Guera JHA, Rose Unavailable Unavailable Allergies, Adverse Reactions, Alerts Substance Reaction Status Criticality nitroglycerin Active No Information Medications Medication Instructions Dosage Effective Dates (start - stop) Status Comments Aspirin Low Dose 81 mg Tab, Delayed Release take 1 tablet (81MG) by ORAL route every day 81 MG - Active D3 DOTS 2,000 unit tablet 1 tablet by oral route daily - Active potassium 99 mg tablet 1 tablet by oral route daily - Active multivitamin tablet take 1 tablet by oral route every day with food - Active WelChol 625 mg tablet take 6 tablet by oral route every day with a meal and liquid 3750 MG - Active potassium 99 mg tablet - No Longer Active D3 DOTS 2,000 unit tablet - No Longer Active cyanocobalamin 2 mg-levomefolate katia 1.13 mg-pyridoxine 25 mg tablet - No Longer Active Procedures Procedure Date No Charge Refraction Post-op Follow-up Visit After Cataract Laser Surgery No Charge Refraction No Charge Optomap Fundus Photos 018 Office/outpatient Visit, Est Office/outpatient Visit, Est Post-op Follow-up Visit After Cataract Laser Surgery No Charge Refraction No Charge Optomap Fundus Photos Oct-- 016 Office/outpatient Visit, Est No Charge Refraction Visual Field Examination(s) Office/outpatient Visit, Est SCODI, Posterior Segment Office/outpatient Visit, Est Office/outpatient Visit, Est Visual Field Examination(s) Eye Exam & Treatment No Charge Refraction SCODI, Posterior Segment Eye Exam & Treatment Certified EMR Refraction Vision Svcs Frames Purchases Miscellaneous Vision Service - Supplies BF Plastic Sph [place] To +/- 4d 12 Vision Svcs Frames Purchases BF Plastic Sph [place] To +/- 4d 12 Office/outpatient Visit, Est Repair Eyelid Defect Revision Of Upper Eyelid Repair Eyelid Defect Revision Of Upper Eyelid Eye Exam & Treatment Optic Nerve Head Eval IPO Reduced 15% Visual Field Examination(s) Optic Nerve Topography Optic Nerve Topography Corneal Pachymetry Fundus Photography W/ Report Visual Field Examination(s) Eye Photography Office/outpatient Visit, Est Office/outpatient Visit, Est Office/outpatient Visit, Est Script Printed/Phoned Pt Requ Or Pharm N ot Availab Post-op Follow-up Visit Post-op Follow-up Visit Remove Cataract, Insert Lens PreOp Assessment Performed Presbyopia Correcting IOL IOLMaster-Professional Post-op Follow-up Visit Post-op Follow-up Visit Remove Cataract, Insert Lens PreOp Assessment Performed Presbyopia Correcting IOL IOLMaster-Professional Office/outpatient Visit, Est No Script IOLMaster-Technical Advance Directives Directive Yes / No Effective Date File Name No Information Encounters Encounter Description Practice Location Reason(s) For Visit Diagnoses Date Provider Providers Copied on [facility]counter [facility], [address], [place], [place], [address], [phone] SEC Terri Grey Post-Op (chief complaint) Encounter for examination following surgery 8 Guera Rose. [address] [facility], [address], [place], [address], [place]. tel:[phone] Referring Provider: Arnaud Jack, [employer] [address], [place], [address]. [phone] [facility], [address], [place], [place], [address], [place] [phone] [facility] No Information 8 Tod Lares. [email or web address], [address], [place], [place], [address], [place]. tel:[phone] Referring Provider: Arnaud Jack, [email or web address], [place], [address]. [phone] Office/outpa tient Visit, Est [facility], [address], [place], [place], [address], [place] [phone] SEC Terri Grey YAG evaluation (chief complaint) Other secondary cataract, right eyePresence of intraocular lens 8 Tod Lares. [email or web address], [address], [place], [place], [address], [place]. tel:[phone] Referring Provider: Arnaud Jack, [address] [place] [address] [address], [place], [address]. [phone] Office/outpa tient Visit, [facility], [address] [place] [address] [address], [place], [place], [address], [place] tel:[phone] SEC Terri N [place] Pressure around the eyes (chief complaint) Other chronic allergic conjunctivitis [place]old[place]- 7 Rama Jordan. [address] [facility], [address], [place], [place], [address], [place]. tel:[phone] Referring Provider: Julian Gonzalez, [address], [address]. [phone] [facility], [address] [place] [address] [address], [place], [place], [address], tel:[phone] SEC Terri N [place] 3 week YAG PC OS (chief complaint) No Information 6 Rama Jordan. [address] [facility] [address], [place], [address], . tel:[phone] Referring Provider: Julian Gonzalez, [address] [facility] [address], [place], [address]. tel:[phone] Office/outpa tient Visit, [facility], [address] [place] [address] [address], [place], [place], [address], [place] tel:[phone] SEC [place] YAG Evaluation (chief complaint) No Information 6 Tod Lares. [address] [place] [address], [address], [place], [place], [address], [place]. tel:[phone] Referring Provider: Julian Gonzalez, [address] [facility] [address], [place], [address]. [phone] Office/outpa tient Visit, [facility], [address] [place] [address], [place], [place], [address], [place] tel:[phone] SEC [place] IOP ck (chief complaint) No Information 6 Ontiveros Julian. [address] [facility], [address], [id number], [place]. tel:[phone] Referring Provider: Julian Gonzalez, [address] [address], [place], [address]. tel:[phone] Office/outpa tient Visit, [facility], [address] [place] [address], [place], [place], [address], [place] tel:[phone] SEC Terri N [place] IOP check (chief complaint) No Information 6 Ontiveros Julian. [address], [id number], [place]. tel:[phone] Referring Provider: Julian Gonzalez, [address] [address], [place], [address]. tel:[phone] Office/outpa tient Visit, [facility], [address] [place] [address], [place], [place], [address], [place] tel:[phone] SEC Terri N [place] 6 [place] IOP CHECK & HVF (chief complaint) No Information 5 Ontiveros Julian. [address] [facility], [facility] [address], [place], [place], [address], [place]. tel:[phone] Referring Provider: Mala Carrillo MD, [address] [facility], [place], [address]. tel:[phone] [facility], [address], [place], [place], [address], [place] tel:[phone] SEC [place] Complete Exam (chief complaint) No Information 5 Rama Jordan. [address], [id number], [place]. tel:[phone] Referring Provider: Julian Gonzalez, [address] [address], [place], [address]. tel:[phone] [facility], [address] [place] [address], [place], [place], [address], [place] tel:[phone] SEC Terri N [place] No Information 2 Rama Jordan. [address] [facility], [address], [id number], [place]. tel:[phone] [facility], [address] [place] [address] [address], [place], [place], [address], [place] tel:[phone] SEC Terri N [place] No Information 2 [employer] . [address] [place] [address], [id number], [place]. tel:[phone] Referring Provider: Julian Gonzalez, [address], [address]. [phone] [facility], [address] [place] [address] [address], [place], [place], [address], [place] tel:[phone] SEC [place] No Information 2 [employer] . [address] [place] [address], [id number], [place]. tel:[phone] Referring Provider: Julian Gonzalez, [address], [address]. tel:[phone] Office/outpa tient Visit, Est [facility], [address] [place] [address] [address], [place], [place], [address], [place] [phone] SEC Terri N [place] No Information 1 Tod Lares. [address] [place] [address], [address], [place], [place], [address], [place]. tel:[phone] [facility], [address] [place] [address], [place], [place], [address], [place] tel:[phone] SEC [place] No Information 1 Tod Lares. [address] [place] [address] [facility], [address], [place], [place], [address], [place]. tel:[phone] [facility], [address] [place] [address], [place], [place], [address], [place] tel:[phone] [facility] No Information 1 Cherie Ware. [address] [facility], [address], [place], [place], [address], [place]. tel:[phone] [facility], [address] [place] [address], [place], [place], [address], [place] [phone] [facility] No Information 1 [place] Arnaud. [address] [place] [facility], [address], [place], [place], [address], [place]. tel:[phone] [facility], [address] [place] [address], [place], [place], [address], [place] [phone] SEC Terri N [place] No Information 0 Alejandrina Medel. [address], [address], [place], [place], [address], [place]. tel:[phone] Referring Provider: Gianfranco Jack, [address], [place], [address]. tel:[phone] Office/outpa tient Visit, Est [facility], [address] [place] [address], [place], [place], [address], [place] tel:[phone] SEC Terri N [place] No Information Oct-2 6-201 0 Cherie Ware. [address] [facility], [address], [place], [place], [address], [place]. tel:[phone] Referring Provider: Chaz Crespo MD, [address] [facility] [address], [place], [address]. [phone] Office/outpa tient Visit, Est [facility], [address] [place] [address] [address], [place], [place], [address], [place] tel:[phone] SEC [place] No Information Aug- 9-201 0 Ontiveros Julian. [address] [facility], [address], [place], [place], [address], [place]. tel:[phone] Office/outpa tient Visit, [facility], [address] [place] [address] [address], [place], [place], [address], [place] tel:[phone] SEC [place] No Information Dec- 7-200 9 Tod Lares. [address] [place] [facility], [address], [place], [place], [address], [place]. tel:[phone] [facility], [address] [place] [address] [address], [place], [place], [address], [place] tel:[phone] SEC Terri N [place] No Information Apr- 0-200 9 Ontiveros Julian. [address] [facility], [address], [place], [place], [address], [place]. tel:[phone] Referring Provider: Arnaud Jack, [facility] [address], [place], [address]. tel:[phone] [facility], [address] [place] [address] [address], [place], [place], [address], [place] tel:[phone] SEC [place] No Information Mar-2 7-200 9 Ontiveros Julian. [address] [facility], [address], [place], [place], [address], [place]. tel:[phone] Referring Provider: Arnaud Jack, [facility] [address], [place], [address]. tel:[phone] [facility], [address] [place] [address], [place], [place], [address], [place] tel:[phone] [facility] No Information Mar-2 6-200 9 [place] Arnaud. [address], [address], [place], [place], [address], [place]. tel:[phone] Referring Provider: Arnaud Jack, [facility] [address], [place], [address]. tel:[phone] [facility], [address] [place] [address] [address], [place], [place], [address], [place] tel:[phone] SEC [place] No Information Mar-2 5-200 9 Tod Lares. [address], [address], [place], [place], [address], [place]. tel:[phone] Referring Provider: Arnaud Jack, [facility] [address], [place], [address]. tel:[phone] [facility], [address] [place] [address], [place], [place], [address], [place] tel:[phone] SEC Terri N [place] No Information Feb-2 7-200 9 Ontiveros Julian. [address] [facility], [address], [place], [place], [address], [place]. tel:[phone] [facility], [address] [place] [address], [place], [place], [address], [place] tel:[phone] SEC Terri N [place] No Information Feb-1 3-200 9 Rama Jordan. [address] [employer], [address], [place], [place], [address], [place]. tel:[phone] [facility], [address] [employer] [address], [place], [place], [address], [place] tel:[phone] [facility] No Information 9 Tod Lares. [address], [address], [place], [place], [address], [place]. tel:[phone] Referring Provider: Arnaud Jack, [facility] [address], [place], [address]. tel:[phone] [facility], [address] [employer] [address], [place], [place], [address], [place] [phone] SEC Terri Grey No Information 9 Tod Lares. [address], [address], [place], [place], [address], [place]. tel:[phone] Referring Provider: Arnaud Jack, [facility] [address], [place], [address]. tel:[phone] [facility], [address] [employer] [address], [place], [place], [address], [place] [phone] SEC Terri Grey No Information 9 Tod Arnaud. [address], [address], [place], [place], [address], [place]. tel:[phone] Referring Provider: Arnaud Jack, [email or web address], [place], [address]. tel:[phone] Family History Family Member Type Diagnosis Age At Onset Mother Problem (finding) Diabetes mellitus Sister Problem (finding) Diabetes mellitus Payers Payer name Insurance type Covered libertarian ID Authoriza tion(s) No Information Social History Type Description Quantity Date Captured Comments Alcohol Use Details 4 drinks weekly Caffeine Use Details No Tobacco Use Status Never smoked tobacco 2017 Smoking Status Never smoker Sex Male Chief Complaint And Reason For Visit From encounter dated '11/18/2017 14:00'. Post-Op (chief complaint). Description: The 77 year old male presents for evaluation of 3 week YAG Post-Op in the right eye. Pt states va has improved OD, very happy with outcome. Pt notes floaters have decreased since laser and no flashes of light. Hx of Restor IOL OU and YAG PC OS, Ptosis ou Reason For Referral Reason For Referral No Information Plan Of Treatment Date Type Action Status Patient Education Learning About YAG Lase r Capsulotomy completed History Of Present Illness Encounter Date Complaint History Of Prese nt Illness Post-Op The 77 year old male presents for evaluation of 3 week YAG Post-Op in the right eye. Pt states va has improved OD, very happy with outcome. Pt notes floaters have decreased since laser and no flashes of light. Hx of Restor IOL OU and YAG PC OS, Ptosis ou YAG evaluation The 77 year old male presents for evaluation of YAG evaluation in the right eye. Pt states he has been having trouble with near va while glasses are on for a few months, Pt notes he also has some irritation ou when he first wakes up in the morning. Pt is not using any drops.Hx of Restor IOL OU and YAG PC OS, Ptosis ou. Pressure around the eyes The 76 year old male presents for Pressure around the right and left eye intermittently x 2 weeks. Pt states it feels like his eyes are too big. Pt states his eyes feel normal today. Pt states he is needing to wear glasses for reading. Hx of Restor IOL OU and YAG PC OS. 3 week YAG PC OS The 75 year old male presents for 3 week follow up for YAG PC in the left eye. HX Cataract ou, Restor OU, Yag PC os, Ptosis ou. Pt states vision is doig great. Pt states he had a few floaters for a week but they are gone now. Pt states no pain/discomfort. Pt states in the morning his eyes are somewhat irritated fror 30 mins after he wakes up. Oct-25-2016 YAG Evaluation The 75 year old male presents for YAG Evaluation in the left eye. Hx MF IOL OU, PCO OS>OD. Pt states he has been having some trouble driving at night because of his vision. States he has been haivng some glare and trouble seeing distance OS. Pt states no pain, irritation or discomfort OU. IOP ck The 75 year old male presents for IOP ck in the right eye and left eye. + HVF Hx of ReStor OU, and PCF OU. Pt states OS VA has decrease dist and near. Pt states difficult to drive at night due to headlight glare and having to get closer to street signs to see them clearly. OS progressive decrease x2-3 mos. Pt uses no AFT. IOP check The 74 year old male presents for 6 month IOP check and NFL OCT. OHTN OU, ReStor IOL OU, PC Haze OU. Pt states not on any drops at this time. 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 No pain, irritation, discomfort in OU 6 MO IOP CHECK & HVF The 74 year old male presents for 6 MO IOP CHECK & HVF. Patient Hx OHTN, IOL (Restor) OU and PC HAZE OU. Patient reports that OU burn in the morning, he washes his face with warm water and then that goes away. When asking the patient if he still uses Travatan Z, he states he had forgotten all about it and has not been using it. Complete Exam The 73 year old male presents for a Complete Exam. hx of OHTN and is pseudophakic with ReStor lenses OU. Patient states vision doing well except at night and in fog. Patient states it started recently.Patient is using no drops at this time. Patient used to use Fazal Z QAM. Functional Status Date Functional Assessmen t No Information Instructions Date Instruction Additional Infor han Impression/Plan Impression/Plan Other chronic allerg ic conjunctivitis - AT's recommended Related to Other chronic allergic conjunctivitis Impression/Plan - Gi keyon samples of Pazeo qd OU. Related to Other chronic allergic conjunctivitis Impression/Plan - Re turn for annual exam. Related to Post-op YAG PC left eye Other secondary alfredo ract, left eye - Surgery advised; risks, benefits, alternatives discussed. Related to Other secondary cataract, left eye Impression/Plan - PC F is the cause for the patients complaints discussed treatment options with pt. R/A/B of Yag PC discussed and understood by pt and the pt wishes to proceed with OS today.Return in 2-4 weeks for po Yag PC OS with DPW Impression/Plan - Di scussed PCF and YAG PC.Refer for Left YAG PC Evaluation Impression/Plan - Di scussed PCF and YAG PC. Knows to return if vision changes. Related to Other secondary cataract, bilateral Impression/Plan - Re turn 6 months IOP and VF. 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 Related to CUPPING OF OPTIC DISC - Return 6 months IO P and VF. Discussed PCF and YAG PC. Knows to return if vision changes. Related to See list of assessments above AFTER-CATARACT NEC, OU - moderate - vision not threatened - will continue to monitor Related to AFTER-CATARACT NEC - 6 months Schedule OCT of the optic nerve for glaucoma. Related to OCULAR HYPERTENSION OCULAR HYPERTENSION, OU - well controlled - POAG well controlled on current medications. Continue Travan-Z qhs OU. Related to OCULAR HYPERTENSION - return as scheduled Related to Vitreous Detachment Vitreous Detachment, OS - will continue to monitor.OHTN- continue same medication- IOP controlled nicely - Discussed diagnosis with patient. No treatment is required at present time. Discussed signs and symptoms of retinal detachment. Will continue to monitor condition. Call if condition or symptoms worsen. Related to Vitreous Detachment Assessments Type Assessment Date assessment Encounter for examination follow ing surgery Patient Care Teams Name Effective Dates (start - stop) Status Members No Information
--- OUTSIDE RECORDS SUMMARY | 2024-09-13 15:26 | XMS_ITS | Referral Summary ---
Author Organization [facility] [address] Address [address] [place] [address] Care Team Providers Care Cleaner Name Role Phone Krysten Webb MD Unavailable Ashwin Hughes MD Unavailable [phone] Adonay Carlos MD Unavailable Colby Adams MD Unavailable Rodrigo Blanchard MD Unavailable Jeff Young MD Primary Care Provider Encounters Date Type Department Care Team Description 09/13/2024 3:30 PM CDT Office Visit [facility] at [address] [address] Lashay Valdovions PA Hand injury, left, initial encounter (Primary Dx) 07/14/2024 Telephone [facility] Sleep [address] [facility] 6th Floor [address] [place] [address] Jyoti Henry MA DME 07/13/2024 1:45 PM CDT Office Visit [facility] Sleep [address] [facility] 6th Floor [address] [place] [address] Ney Rothman MD JERRY on CPAP (Primary Dx); Hypersomnia 07/04/2024 4:15 PM CDT Office Visit [facility] at [address] [address] Lashay Valdovinos PA Rash (Primary Dx) 06/15/2024 Telephone [facility] Scheduling [address] [place] [address] Ney Rothman MD Scheduling Appointments from Last 3 Months Allergies Active Allergy Reactions Criticality Noted Date [...] to maintain abnormally low cholesterol levels and [id number] blood pressure to manage CAA. - Continue [...] on CT abdomen and pelvis 04/12/2022 at [facility] Assessment & Plan (08/11/2023 6:53 PM CDT): [...] (06/25/2021): Added automatically from request for surgery [id number] Intermittent memory loss 05/15/2021 Assessment & Plan [...] health risk. Has lost some wt since skilled nursing, but none in last few months. Resolved Problems Problem Noted Date Diagnosed Date Resolved Date TIA (transient ischemic attack) 11/14/2023 05/24/2024 COVID 01/02/2022 07/30/2022 Morbid (severe) obesity due to excess calories 01/02/2022 08/11/2023 Arthritis of knee 07/05/2021 02/03/2023 Preoperative cardiovascular examination 05/15/2021 01/02/2022 Decre[address] 12/27/2017 08/11/19 Chest discomfort 01/01/2017 07/30/2022 Assessment & Plan [...] pain, aggravated by morbid obesity. 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 Gender Identity Male 06/21/2020 10:23 AM CDT Sexual Orientation Straight 06/16/2021 3: 47 PM CDT Last Filed Vital Signs Vital Sign Reading [...] Description 09/13/2024 3:30 PM CDT Office Visit [facility] at [address] [id number] Lashay Valdovinos PA [address] [place] [address] [id number] Hand injury, left, initial encounter (Primary Dx) Medical Devices Implanted Type Area Wirer Street Light Device Identifier Shelf Expiration Date Model / Serial / Lot [employer] Smartset Medium Viscosity Cement 40gm Bone Gentamicin [id number] - Sna - [id number] Implanted:Qty: 1 on 07/05/2021 by Brant Wakefield MD at [facility] Bone Cement Right: Knee [employer] 12/07/2022 [id number] / NA / [id number] [employer] Smartset Medium Viscosity Cement 40gm Bone Sterile 3122-040 - Sna - [id number] Implanted:Qty: 1 on 07/05/2021 by Brant Wakefield MD at [facility] Bone Cement Right: Knee [employer] [id number] 08/07/2021 3122-040 / NA / [id number] [employer] [id number] Attune Cemented Cruciate Retaining Knee Right 6 Component Femoral - Sna - [id number] Implanted:Qty: 1 on 07/05/2021 by Brant Wakefield MD at [facility] Other - see comments Right: Knee [employer] [id number] 09/06/2029 [id number] / NA / [id number] Description:Implant pause pe rformed [employer] [id number] Attune S+ Cement Fix Bearing Knee 7 Baseplate Tibial - Sna - [id number] Implanted:Qty: 1 on 07/05/2021 by Brant Wakefield MD at [facility] Other - see comments Right: Knee [employer] [id number] 02/06/2031 [id number] / NA / [id number] Description:Implant pause pe rformed [employer] [id number] Insert Attune Right Medial Stabilized Size 6 8mm - Sna - [id number] Implanted:Qty: 1 on 07/05/2021 by Brant Wakefield MD at [facility] Other - see comments Right: Knee [employer] [id number] 02/06/2029 [id number] / NA / [id number] Description:Implant pause pe rformed Plate Plate Left: Leg Description:Plate and screws Procedures Procedure Name Priority Date/Time Associated Diagnosis Comments HEMOGLOBIN A1C Routine 07/19/2024 LIPID PANEL Routine 07/19/2024 EGFR Routine 07/19/2024 POCT RAPID STREP Routine 07/04/2024 4:48 PM CDT Rash from Last 3 Months Results * EGFR (07/19/2024) SCRIBED eGFR in NonAfrican Sudanese 67.7 EXTERNAL LAB us Historical Provider HEALTH MAINTENANCE Final Result EXTERNAL LAB * LIPID PANEL (07/19/2024) SCRIBED Cholesterol, Total 100 30 - 199 mg/dL SCRIBED Triglycerides 147 <=149 mg/dL SCRIBED HDL 52 >=40 mg/dL SCRIBED LDL 24 <=129 mg/dL Historical Provider HEALTH MAINTENANCE Final Result * (ABNORMAL) HM HEMOGLOBIN A1C (07/19/2024) SCRIBED Hemoglobin A1c 5.8(A) 4.0 - 5.6 % Historical Provider HEALTH MAINTENANCE Final Result * POCT rapid strep A (07/04/2024 4:48 PM CDT) Rapid Strep A, POC Negative Negative Swab 07/04/2024 4:48 PM CDT Result [facility] Lashay WALKER POINT OF CARE TEST ORDER ZACKERY Final Result from Last 3 Months Insurance MEDICARE [facility] FEDERAL MEDICARE [facility] Advance Directives For more information, please contact: [phone] Documents on File Type Date Recorded 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 Expl 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 Advance Directives and Livin g Will 07/05/2021 6:56 AM * Full Code (Latest Code Status on File) Date Activated Date Inactivated Comments 11/14/2023 12:06 AM 11/14/2023 10:06 PM * Full Code Date Activated Date Inactivated Comments 07/05/2021 1:06 PM 07/06/2021 5:10 PM Care Teams Cleaner Relationship Specialty Start Date End Date Jeff Young MD [address] [place] [address] PCP - General Family Medicine 08/18/24 Krysten Webb MD Consulting Physician Cardiology 02/03/23 Ashwin Hughes MD [address] [facility] [place] [address] Consulting Physician Urology 02/03/23 Adonay Carlos MD [address] [facility] [address] [address] Referring Physician Dermatology 08/11/23 Colby Adams MD [address] [facility] NEUROLOGY [address], [facility] [address] [place] [address] Consulting Physician Neurology 08/11/23 Rodrigo Blanchard MD [address] [place] [address] Consulting Physician Cardiology 05/21/24
--- OUTSIDE RECORDS SUMMARY | 2024-09-13 15:26 | XMS_ITS | Encounter Summary ---
Author Organization [facility] Healthcare Address [address] [place] [address] Care Team Providers Care Breakfast Server Name Role Phone Krysten Webb MD Unavailable [phone] Ashwin Hughes MD Unavailable Adonay Carlos MD Unavailable [phone] Colby Adams MD Unavailable [phone] Rodrigo Blanchard MD Unavailable Jeff Young MD Primary Care Provider Reason for Visit * Reason Comments Fall Right hand. 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 Gender Identity Male 06/21/2020 10:23 AM CDT Sexual Orientation Straight 06/16/2021 3: 47 PM CDT documented as of this encounter Last Filed Vital Signs Vital Sign Reading Time Taken Comments Blood Pressure 148/88 09/13/2024 2:47 PM CDT Pulse 100 09/13/2024 2:47 PM CDT Temperature 37.1 C (98.7 F) 09/13/2024 2:47 PM CDT Respiratory Rate 20 09/13/2024 2:47 PM CDT Oxygen Saturation 97% 09/13/2024 2:47 PM CDT Inhaled Oxygen Concentration - - Weight 109.8 kg (242 lb) 09/13/2024 2:47 PM CDT Height - - Body Mass Index 42.87 07/13/2024 1:42 PM CDT documented in this encounter Plan of Treatment Not on file documented as of this encounter Visit Diagnoses Diagnosis Hand injury, left, initial encounter- Primary documented in this encounter Care Teams Breakfast Server Relationship Specialty Start Date End Date Jeff Young MD [address] [address] PCP - General Family Medicine 08/18/24 Krysten Webb MD Consulting Physician Cardiology 02/03/23 Ashwin Hughes MD [address] [facility] [place] [facility] [place] [address] Consulting Physician Urology 02/03/23 Adonay Carlos MD [address] [facility] [address], [place] [address] Referring Physician Dermatology 08/11/23 Colby Adams MD [address] [facility] NEUROLOGY STROKE, [address] [address] Consulting Physician Neurology 08/11/23 Rodrigo Blanchard MD [address] [facility] C [facility] [address] [facility], [facility] [address] [place] [address] Consulting Physician Cardiology 05/21/24 documented as of this encounter
[2024-09-13 15:29] VITALS: BP 145/91; PULSE 113; RESP 20; TEMP 36.4; O2SAT 95
--- NOTE | 2024-09-13 16:11 | ED_ITS ---
HPI - Extremity Injury (Upper) General Chief Complaint: Extremity Injury, Upper Stated Complaint: possible broken L index finger Time Seen by Provider: 09/13/24 16:11 Focused HPI: This is a 84 year old male that presents to the ER for left 2nd finger injury. Sustained last night. Reports he tripped over his cat. Denies hitting his head or losing consciousness. GENERAL: Elderly, well-nourished, and in no acute distress. HEAD: Normocephalic, atraumatic. CHEST: Clear to auscultation. ?No respiratory distress. HEART: Regular rate and rhythm.? NEURO: ?Alert and oriented x3. Patient screened in triage and initial orders placed.? ?Additional care and disposition to be based upon?diagnostic testing and treatment. Related Data Home Medications ?Medication ?Instructions ?Recorded ?Confirmed ?Last Taken ?Type aspirin 81 mg tablet,delayed 81 mg PO DAILY 12/26/21 02/25/23 Unknown History release atorvastatin 20 mg tablet 20 mg PO DAILY 12/26/21 02/25/23 Unknown History benazepril 5 mg tablet 5 mg PO DAILY 12/26/21 02/25/23 Unknown History finasteride 5 mg tablet 5 mg PO DAILY 02/25/23 02/25/23 Unknown History Allergies Allergy/AdvReac Type Severity Reaction Status Date / Time nitroglycerin AdvReac Severe Other Verified 02/25/23 08:21 Review of Systems Review of Systems: All systems reviewed & are unremarkable except as noted in HPI and below PMFSH Past Medical History Medical History (Updated 09/13/24 @ 17:44 by Sil Baeza PA-C) Obstructive sleep apnea on CPAP Transient ischemic attack Hyperlipidemia Hypertension Surgical History Surgical History (Updated 02/24/23 @ 23:44 by Fartun Santiago PA-C) History of bilateral knee arthroplasty History of cataract extraction Family History Family History (Updated 02/25/23 @ 08:47 by Erica Lew RN) Father Heart failure Mother Heart failure Diabetes mellitus Sibling Heart failure Diabetes mellitus Social History Social History (Updated 02/24/23 @ 23:45 by Fartun Santiago PA-C) Social History: Surrogate medical decision maker: Grace Whitesimrancharissa, spouse. Code status: Full code. Smoking status: Never smoker Alcohol intake: current Substance use: never Substance use type: does not use Do You Feel Safe in your Home?: Yes Lack of Transportation: No Lack of Food: Never True Current Housing: I Have Housing Concerned About Future Housing: No Difficulty Paying Gas/Electric Bills: No Difficulty Paying for Meds: No Currently Unemployed: No Education: Bachelor's Degree Difficulty w/ Childcare or Family Care: No Living arrangements: with family Additional living arrangements comments: and lives with spouse in [place]. They have 4 children. 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 Spiritual care concerns: No Course Vital Signs Vital signs: Vital Signs Temperature 97.5 F L 09/13/24 15:29 Pulse Rate 113 H 09/13/24 15:29 Respiratory Rate 20 09/13/24 15:29 Blood Pressure 145/91 H 09/13/24 15:29 Pulse Oximetry 95 09/13/24 15:29 Oxygen Delivery Room Air 09/13/24 15:29 Temperature 97.5 F L 09/13/24 15:29 Pulse Rate 99 09/13/24 17:48 Respiratory Rate 18 09/13/24 17:48 Blood Pressure 145/91 H 09/13/24 15:29 Pulse Oximetry 96 09/13/24 17:48 Oxygen Delivery Room Air 09/13/24 17:48 Procedures Orthopedic Splinting/Casting Injury #1: Splinting/Casting Date: 09/13/24 Splinting/Casting Time: 18:16 Side: left Upper Extremity Injury Location: finger Pre-Formed: metal foam finger splint Pre-Procedure Neuro Vascular Exam: normal Post-Procedure Neuro Vascular Exam: normal MDM - Extremity Injury (Upper) MDM Narrative Medical decision making narrative: Patient presents to the ER for left 2nd finger injury sustained last night. He is neurovascularly intact. Finger x-ray shows fracture at the base of the proximal phalanx. Patient placed in finger splints. Will be given follow up with orthopedics Differential Diagnosis Differential diagnosis: Likely finger sprain, dislocation of finger and other (finger fracture) Imaging Data Radiologist's impression: ITS Impressions Finger X-Ray 09/13/24 16:24 IMPRESSION: 1. Minimally displaced intra-articular fracture at the ulnar base of the left second proximal phalanx. 2. 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 Critical Care Time Critical Care Time Critical Care Time: No Discharge Plan Discharge Clinical Impression: Finger fracture, left Qualifiers: Encounter type: initial encounter Finger: index finger Fracture type: closed Phalanx: proximal Fracture alignment: displaced Qualified Code(s): S62.611A - Displaced fracture of proximal phalanx of left index finger, initial encounter for closed fracture Patient Disposition: Home Condition: Stable Instructions: Finger Fracture (ED) Additional Instructions: Return to the ER if you experience fever, redness and swelling of your extremity, numbness or any other symptoms that are concerning to you Wear splint. No weight on the affected extremity. Ice and elevate extremity. Pain medication as needed and directed. Follow up with orthopedics for further care. Patient Language: [place] Prescriptions: New hydrocodone-acetaminophen 5-325 mg tablet 1 tablet PO Q6H PRN (Reason: pain) Qty: 20 0RF No Action atorvastatin 20 mg tablet 20 mg PO DAILY benazepril 5 mg tablet 5 mg PO DAILY aspirin 81 mg tablet,delayed release (DR/EC) 81 mg PO DAILY finasteride 5 mg tablet 5 mg PO DAILY Follow-up/Referrals: PHYSICIAN NOT ON STAFF,NONSTAFF [Primary Care Provider] - Rolly Paredes MD [Physician] -
[2024-09-13 17:43] VITALS: PULSE 99
[2024-09-13 17:48] VITALS: PULSE 99; RESP 18; O2SAT 96
--- OUTSIDE RECORDS SUMMARY | 2024-09-13 17:52 | XMS_ITS | Encounter Summary ---
Author Organization [facility] Healthcare Address [address] [place] [address] Care Team Providers Care Gaming Dealer Name Role Phone Krysten Webb MD Unavailable Ashwin Hughes MD Unavailable Adonay Carlos MD Unavailable [phone] Colby Adams MD Unavailable [phone] Rodrigo Blanchard MD Unavailable Jeff Young MD Primary Care Provider Reason for Visit * Reason Comments Fall Right hand. 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 Subjective/Objective Patient ID: Luis Manuel Rowell is a 84 y.o. male. Chief Complaint Fall (Right hand. ) Pt presents w/ L hand pain x 1 day s/p fall last night. States he tripped over his cat last night and landed on his L hand. Has pain, swelling, bruising, and decreased ROM especially of the L index finger w/ obvious deformity. Denies numbness. Took aspirin last night. Review of Systems All systems reviewed and are negative or non contributory for this patient's presentation today other than as stated in the HPI . Physical Exam Constitutional: General: He is not in acute distress. HENT: Head: Normocephalic and atraumatic. Mouth/Throat: Pharynx: Oropharynx is clear. Eyes: Pupils: Pupils are equal, round, and reactive to light. Cardiovascular: Rate and Rhythm: Normal rate. Pulmonary: Effort: Pulmonary effort is normal. Musculoskeletal: Cervical back: Normal range of motion. Comments: Deformity noted of the L index finger at the PIP joint w/ very limited ROM, +ecchymosis, cap refill brisk, sensation intact Skin: General: Skin is warm and dry. Neurological: General: No focal deficit present. Mental Status: He is alert and oriented to person, place, and time. Psychiatric: Mood and Affect: Mood normal. Behavior: Behavior normal. Vitals: 09/13/24 1447 BP: 148/88 Pulse: 100 Resp: 20 Temp: 37.1 ??C (98.7 ??F) TempSrc: Oral SpO2: 97% Weight: 109.8 kg (242 lb) Assessment/Plan Pt presents w/ hand injury s/p trip and fall yesterday. Has deformity of the L index finger at the PIP joint, suspected dislocation and possible fracture. Pt referred to ED to r/o dislocation and forstat imaging. Diagnoses and all orders for this visit: Hand injury, left, initial encounter (Primary) No results found for this or any previous visit (from the past 4 hours). Disposition ER - AARON Solitario 09/13/24 3:08 PM Cosigned by Garcia Martin MD at 09/13/2024 3:28 PM CDT documented in this encounter Plan of Treatment Not on file documented as of this encounter Visit Diagnoses Diagnosis Hand injury, left, initial encounter- Primary documented in this encounter Care Teams Gaming Dealer Relationship Specialty Start Date End Date Jeff Young MD [address] [address] PCP - General Family Medicine 08/18/24 Krysten Webb MD Consulting Physician Cardiology 02/03/23 Ashwin Hughes MD [address] [facility] [place] [address] Consulting Physician Urology 02/03/23 Adonay Carlos MD [address] [address] Referring Physician Dermatology 08/11/23 Colby Adams MD [address] [facility] NEUROLOGY STROKE, [address] [address] Consulting Physician Neurology 08/11/23 Rodrigo Blanchard MD [address] [facility] [address] [facility] C[address] [place] [address] Consulting Physician Cardiology 05/21/24 documented as of this encounter
--- OUTSIDE RECORDS SUMMARY | 2024-09-13 17:52 | XMS_ITS | Clinical Summary ---
Author Organization [facility] [address] Address [address] [place] [address] Care Team Providers Care Onsite Case Manager Name Role Phone Krysten Webb MD Unavailable [phone] Ashwin Hughes MD Unavailable Adonay Carlos MD Unavailable [phone] Colby Adams MD Unavailable [phone] Rodrigo Blanchard MD Unavailable Jeff Young MD [...] to maintain abnormally low cholesterol levels and qvdnr-flww-nmzxb blood pressure to manage CAA. - Continue [...] left mid renal pole cyst Atherosclerosis of tolowa dee-ni' coronary artery of socratse andrade heart 08/23/2022 Overview (08/23/2022): Coronary artery disease and atherosclerotic vascular disease noted on CT abdomen and pelvis 04/12/2022 at [facility] Assessment & Plan (08/11/2023 6:53 PM CDT): [...] (06/25/2021): Added automatically from request for surgery [id number] Intermittent memory loss 05/15/2021 Assessment & Plan [...] health risk. Has lost some wt since care home, but none in last few months. Resolved [...] [facility] at [address] [address] Lashay Valdovinos PA Hand injury, left, initial encounter (Primary Dx) 07/14/2024 Telephone [facility] Neuro Sleep [address] [facility] 6th [address] [place] [address] Jyoti Henry MA DME 07/13/2024 1:45 PM CDT Office Visit [facility] Neuro Sleep [address] [facility] [address] [place] [address] Ney Rothman MD JERRY on CPAP (Primary Dx); Hypersomnia 07/04/2024 4:15 PM CDT Office Visit [facility] Medical [facility] at [address] [address] Lashay Valdovinos PA Rash (Primary Dx) 06/15/2024 Telephone [facility] Scheduling [address] [place] [address] Ney Rothman MD Scheduling Appointments [...] on file 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 Gender Identity Male 06/21/2020 10:23 AM CDT [...] 07/13/2024 1:42 PM CDT Plan of Treatment Health Maintenance Due Date Last Done Comments Covid-19 Vaccine (2023- 5 season) 2024 12/04/2023, 06/26/2023, 11/30/2022, Additional [...] Completed 05/28/2024 Medical Devices Implanted Type Area Tar Distributor Operator Device Identifier Shelf Expiration Date Model / Serial / Lot [employer] Smartset Medium Viscosity Cement 40gm Bone Gentamicin [id number] - Sna - [id number] Implanted:Qty: 1 on 07/05/2021 by Brant Wakefield MD at [facility] Bone Cement Right: Knee [employer] 12/07/2022 [id number] / NA / [id number] [employer] Smartset Medium Viscosity Cement 40gm Bone Sterile 3122-040 - Sna - [id number] Implanted:Qty: 1 on 07/05/2021 by Brant Wakefield MD at [facility] Bone Cement Right: Knee [employer] [id number] 08/07/2021 3122-040 / NA / [id number] [employer] [id number] Attune Cemented Cruciate Retaining Knee Right 6 Component Femoral - Sna - [id number] Implanted:Qty: 1 on 07/05/2021 by Brant Wakefield MD at [facility] Other - see comments Right: Knee [employer] [id number] 09/06/2029 [id number] / NA / [id number] Description:Implant pause pe rformed [employer] [id number] Attune S+ Cement Fix Bearing Knee 7 Baseplate Tibial - Sna - [id number] Implanted:Qty: 1 on 07/05/2021 by Brant Wakefield MD at [facility] Other - see comments Right: Knee [employer] [id number] 02/06/2031 [id number] / NA / [id number] Description:Implant pause pe rformed [employer] [id number] Insert Attune Right Medial Stabilized Size 6 8mm - Sna - [id number] Implanted:Qty: 1 on 07/05/2021 by Brant Wakefield MD at [facility] Other - see comments Right: Knee [employer] [id number] 02/06/2029 [id number] / NA / [id number] Description:Implant pause pe rformed Plate Plate Left: Leg Description:Plate and screws Procedures Procedure Name Priority Date/Time Associated Diagnosis Comments HEMOGLOBIN A1C Routine 07/19/2024 LIPID PANEL Routine 07/19/2024 EGFR Routine 07/19/2024 POCT RAPID STREP Routine 07/04/2024 4:48 PM CDT Rash from Last 3 Months Results * EGFR (07/19/2024) Pathologist [facility] SCRIBED eGFR in NonAfrican Tanzanian 67.7 EXTERNAL LAB Historical Provider HEALTH MAINTENANCE Final Result EXTERNAL LAB * LIPID PANEL (07/19/2024) Pathologist [facility] SCRIBED Cholesterol, Total 100 30 - 199 mg/dL SCRIBED Triglycerides 147 <=149 mg/dL SCRIBED HDL 52 >=40 mg/dL SCRIBED LDL 24 <=129 mg/dL Historical Provider HEALTH MAINTENANCE Final Result * (ABNORMAL) HEMOGLOBIN A1C (07/19/2024) Pathologist [facility] SCRIBED Hemoglobin A1c 5.8(A) 4.0 - 5.6 % Historical Provider MD HEALTH MAINTENANCE Final Result * POCT rapid strep A (07/04/2024 4:48 PM CDT) Rapid Strep A, POC Negative Negative Swab 07/04/2024 4:48 PM CDT Lashay WALKER POINT OF CARE TEST ORDER ZACKERY Final Result from Last 3 Months Insurance MEDICARE [facility] FEDERAL MEDICARE [facility] Advance Directives For more information, please contact: [phone] Documents on File Type Date Recorded Patient Developer Programmer Expl anation Advance Directives and Livin g Will 07/05/2021 6:56 AM * Full Code (Latest Code Status on File) Date Activated Date Inactivated Comments 11/14/2023 12:06 AM 11/14/2023 10:06 PM * Full Code Date Activated Date Inactivated Comments 07/05/2021 1:06 PM 07/06/2021 5:10 PM Care Teams Onsite Case Manager Relationship Specialty Start Date End Date Jeff Young MD [address] [place] [address] PCP - General Family Medicine 08/18/24 Krysten Webb, MD Consulting Physician Cardiology 02/03/23 Ashwin Hughes MD [address] [place] [address] Consulting Physician Urology 02/03/23 Adonay Carlos MD [address] [facility] [address] [address] Referring Physician Dermatology 08/11/23 Colby Adams MD [address] [facility] NEUROLOGY STRO[address], [facility] [address] [place] [address] Consulting Physician Neurology 08/11/23 Rodrigo Blanchard MD [address] [facility] [address] [place] [address] Consulting Physician Cardiology 05/21/24
--- OUTSIDE RECORDS SUMMARY | 2024-09-13 17:52 | XMS_ITS | Referral Summary ---
Author Organization [facility] [address] Address [address] [place] [address] Care Team Providers Care Commercial Kitchen Service Technician Name Role Phone Krysten Webb MD Unavailable [phone] Ashwin Hughes MD Unavailable [phone] Adonay Carlos MD Unavailable [phone] Colby Adams MD Unavailable Rodrigo Blanchard MD Unavailable Jeff Young MD Primary Care Provider Encounters Date Type Department Care Team Description 09/13/2024 3:30 PM CDT Office Visit [facility] at [address] [address] Lashay Valdovinos PA Hand injury, left, initial encounter (Primary Dx) 07/14/2024 Telephone [facility] Neuro Sleep [address] [facility] 6th [address] [place] [address] Jyoti Henry MA DME 07/13/2024 1:45 PM CDT Office Visit [facility] Neuro Sleep [address] [facility] 6th [address] [place] [address] Ney Rothman MD JERRY on CPAP (Primary Dx); Hypersomnia 07/04/2024 4:15 PM CDT Office Visit [facility] Medical [facility] at [address] [address] Lashay Valdovinos PA Rash (Primary Dx) 06/15/2024 Telephone [facility] Scheduling [address] [place] [address] Ney Rothman MD Scheduling Appointments [...] to maintain abnormally low cholesterol levels and imipn-gyiy-qfhfh blood pressure to manage CAA. - Continue [...] left mid renal pole cyst Atherosclerosis of jamul coronary artery of socrates andrade heart 08/23/2022 Overview (08/23/2022): Coronary artery disease and atherosclerotic vascular disease noted on CT abdomen and pelvis 04/12/2022 at [facility] Assessment & Plan (08/11/2023 6:53 PM CDT): [...] (06/25/2021): Added automatically from request for surgery [id number] Intermittent memory loss 05/15/2021 Assessment & Plan [...] health risk. Has lost some wt since fdc, but none in last few months. 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 Gender Identity Male 06/21/2020 10:23 AM [...] 07/13/2024 1:42 PM CDT Plan of Treatment Not on file Medical Devices Implanted Type Area Front Elevator Operator Device Identifier Shelf Expiration Date Model / Serial / Lot [employer] Smartset Medium Viscosity Cement 40gm Bone Gentamicin [id number] - Sna - [id number] Implanted:Qty: 1 on 07/05/2021 by Brant Wakefield MD at [facility] Bone Cement Right: Knee [employer] 12/07/2022 [id number] / NA / [id number] [employer] Smartset Medium Viscosity Cement 40gm Bone Sterile 3122-040 - Sna - [id number] Implanted:Qty: 1 on 07/05/2021 by Brant Wakefield MD at [facility] Bone Cement Right: Knee [employer] [id number] 08/07/2021 3122-040 / NA / [id number] [employer] [id number] Attune Cemented Cruciate Retaining Knee Right 6 Component Femoral - Sna - [id number] Implanted:Qty: 1 on 07/05/2021 by Brant Wakefield MD at [facility] Other - see comments Right: Knee [employer] [id number] 09/06/2029 [id number] / NA / [id number] Description:Implant pause pe rformed [employer] [id number] Attune S+ Cement Fix Bearing Knee 7 Baseplate Tibial - Sna - [id number] Implanted:Qty: 1 on 07/05/2021 by rBant Wakefield MD at [facility] Other - see comments Right: Knee [employer] [id number] 02/06/2031 [id number] / NA / [id number] Description:Implant pause pe rformed [employer] [id number] Insert Attune Right Medial Stabilized Size 6 8mm - Sna - [id number] Implanted:Qty: 1 on 07/05/2021 by Brant Wakefield MD at [facility] Other - see comments Right: Knee [employer] [id number] 02/06/2029 [id number] / NA / [id number] Description:Implant pause pe rformed Plate Plate Left: Leg Description:Plate and screws Procedures Procedure Name Priority Date/Time Associated Diagnosis Comments HEMOGLOBIN A1C Routine 07/19/2024 LIPID PANEL Routine 07/19/2024 EGFR Routine 07/19/2024 POCT RAPID STREP Routine 07/04/2024 4:48 PM CDT Rash from Last 3 Months Results * EGFR (07/19/2024) SCRIBED eGFR in NonAfrican Kenyan 67.7 EXTERNAL LAB Historical Provider HEALTH MAINTENANCE Final Result EXTERNAL LAB * LIPID PANEL (07/19/2024) SCRIBED Cholesterol, Total 100 30 - 199 mg/dL SCRIBED Triglycerides 147 <=149 mg/dL SCRIBED HDL 52 >=40 mg/dL SCRIBED LDL 24 <=129 mg/dL Historical Provider HEALTH MAINTENANCE Final Result * (ABNORMAL) HEMOGLOBIN A1C (07/19/2024) SCRIBED Hemoglobin A1c 5.8(A) 4.0 - 5.6 % Historical Provider HEALTH MAINTENANCE Final Result * POCT rapid strep A (07/04/2024 4:48 PM CDT) Rapid Strep A, POC Negative Negative Swab 07/04/2024 4:48 PM CDT Lashay WALKER POINT OF CARE TEST ORDER ZACKERY Final Result from Last 3 Months Insurance MEDICARE [facility] FEDERAL MEDICARE [facility] FED[facility]AL Advance Directives For more information, please contact: [phone] Documents on File Type Date Recorded 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 Advance Directives and Livin g Will 07/05/2021 6:56 AM * Full Code (Latest Code Status on File) Date Activated Date Inactivated Comments 11/14/2023 12:06 AM 11/14/2023 10:06 PM * Full Code Date Activated Date Inactivated Comments 07/05/2021 1:06 PM 07/06/2021 5:10 PM Care Teams Commercial Kitchen Service Technician Relationship Specialty Start Date End Date Jeff Young MD [address] [facility] [address] [place] [address] PCP - General Family Medicine 08/18/24 Krysten Webb MD Consulting Physician Cardiology 02/03/23 Ashwin Hughes MD [address] [facility] [place] [address] Consulting Physician Urology 02/03/23 Adonay Carlos MD [address] [facility] [address] [place] [address] Referring Physician Dermatology 08/11/23 Colby Adams MD [address] [facility] NEUROLOGY STR[address], [address] [address] Consulting Physician Neurology 08/11/23 Rodrigo Blanchard MD [address] [facility] [address] [place] [address] Consulting Physician Cardiology 05/21/24
--- OUTSIDE RECORDS SUMMARY | 2024-09-13 17:52 | XMS_ITS | Continuity of Care Document ---
Author Organization [email or web address] [facility] Address [address] [facility] [address] [place] [address] Phone Care Team Providers Care Data Analyst Etl Developer Name Role Phone Gueraroxy JHA, Rose Unavailable Unavailable Allergies, Adverse Reactions, Alerts Substance Reaction Status Criticality nitroglycerin Active No Information Medications Medication Instructions Dosage Effective Dates (start - stop) Status Comments Aspirin Low Dose 81 mg Tab, Delayed Release take 1 tablet (81MG) by ORAL route every day 81 MG - Active potassium 99 mg tablet 1 tablet by oral route daily - Active D3 DOTS 2,000 unit tablet 1 tablet by oral route daily - Active WelChol 625 mg tablet take 6 tablet by oral route every day with a meal and liquid 3750 MG - Active multivitamin tablet take 1 tablet by oral route every day with food - Active cyanocobalamin 2 mg-levomefolate katia 1.13 mg-pyridoxine 25 mg tablet - No Longer Active D3 DOTS 2,000 unit tablet - No Longer Active potassium 99 mg tablet - No Longer Active Procedures [...] Vision Service - Supplies BF Plastic Sph [place] To +/- 4d 12 [facility] Frames Purchases BF Plastic Sph [place] To +/- 4d 12 Office/outpatient Visit, Est [...] Diagnoses Date Provider Providers Copied on [facility], [address], [place], [place], [address], [phone] SEC Terri Grey Post-Op (chief complaint) Encounter for examination following surgery 8 Guera Rose. [address] [facility], [address], [place], [address], [place]. tel:[phone] Referring Provider: Arnaud Jack, [employer] [address], [place], [address]. [phone] [facility], [address], [place], [place], [address], [place] [phone] [facility] [place] No Information 8 Tod Lares. [id number], [address], [place], [place], [address], [place]. tel:[phone] Referring Provider: Arnaud Jack, [address] [address], [place], [address]. [phone] Office/outpa tient Visit, Est [facility], [address], [place], [place], [address], [place] [phone] SEC Terri Grey YAG evaluation (chief complaint) Other secondary cataract, right eyePresence of intraocular lens 8 Tod Lares. [address], [address], [place], [place], [address], [place]. tel:[phone] Referring Provider: Arnaud Jack, [address] [place] [address] [address], [place], [address]. [phone] Office/outpa tient Visit, [facility], [address] [place] [address] [address], [place], [place], [address], [place] tel:[phone] SEC Terri N [place] Pressure around the eyes (chief complaint) Other chronic allergic conjunctivitis [place]old[place]- 7 Rama Jordan. [address] [facility], [address], [place], [place], [address], [place]. tel:[phone] Referring Provider: Julian Gonzalez, [address], [address]. [phone] [facility], [address] [place] [address] [address], [place], [place], [address], tel:[phone] SEC Terri N [place] 3 week YAG PC OS (chief complaint) No Information 6 Rama Jordan. [address] [facility] [address], [place], [address], . tel:[phone] Referring Provider: Julian Gonzalez, [address] [facility] [address], [place], [address]. tel:[phone] Office/outpa tient Visit, [facility], [address] [place] [address] [address], [place], [place], [address], [place] tel:[phone] SEC [place] N [place] YAG Evaluation (chief complaint) No Information 6 Tod Lares. [address] [place] [address], [address], [place], [place], [address], [place]. tel:[phone] Referring Provider: Julian Gonzalez, [address] [facility] [address], [place], [address]. [phone] Office/outpa tient Visit, [facility], [address], [place], [place], [address], [place] tel:[phone] SEC [place] N [place] IOP ck (chief complaint) No Information 6 Ontiveros Julian. [address] [facility], [address], [address], [place]. tel:[phone] Referring Provider: Julian Gonzalez, [address] [address], [place], [address]. tel:[phone] Office/outpa tient Visit, [facility], [address], [place], [place], [address], [place] tel:[phone] SEC Terri N [place] IOP check (chief complaint) No Information 6 Ontiveros Julian. [address], [id number], [place]. tel:[phone] Referring Provider: Julian Gonzalez, [address] [address], [place], [address]. tel:[phone] Office/outpa tient Visit, [facility], [address], [place], [place], [address], [place] tel:[phone] SEC Terri N [place] 6 [place] IOP CHECK & HVF (chief complaint) No Information 5 Ontiveros Julian. [address] [facility], [facility] [address], [place], [place], [address], [place]. tel:[phone] Referring Provider: Mala Carrillo MD, [address] [facility], [place], [address]. tel:[phone] [facility], [address], [place], [place], [address], [place] tel:[phone] SEC [place] N [place] Complete Exam (chief complaint) No Information 5 Rama Jordan. [address], [id number], [place]. tel:[phone] Referring Provider: Julian Gonzalez, [address] [address], [place], [address]. tel:[phone] [facility], [address], [place], [place], [address], [place] tel:[phone] SEC Terri N [place] No Information 2 Rama Jordan. [address] [facility], [address], [id number], [place]. tel:[phone] [facility], [address] [place] [address] [address], [place], [place], [address], [place] tel:[phone] SEC Terri N [place] No Information 2 [facility] . [address] [place] [address], [id number], [place]. tel:[phone] Referring Provider: Julian Gonzalez, [address], [address]. [phone] [facility], [address] [place] [address] [address], [place], [place], [address], [place] tel:[phone] SEC [place] N [place] No Information 2 [facility] . [address] [place] [address], [id number], [place]. tel:[phone] Referring Provider: Julian Gonzalez, [address], [address]. tel:[phone] Office/outpa tient Visit, Est [facility], [address] [place] [address] [address], [place], [place], [address], [place] [phone] SEC Terri N [place] No Information 1 Tod Lares. [address] [place] [address], [address], [place], [place], [address], [place]. tel:[phone] [facility], [address], [place], [place], [address], [place] tel:[phone] SEC [place] N [place] No Information 1 Tod Lares. [address] [facility] [place], [address], [place], [place], [address], [place]. tel:[phone] [facility], [address], [place], [place], [address], [place] tel:[phone] [facility] [place] No Information 1 Cherie Ware. [address] [facility], [address], [place], [place], [address], [place]. tel:[phone] [facility], [address], [place], [place], [address], [place] [phone] [facility] [place] No Information 1 [place] Arnaud. [address] [employer] [facility] [place], [address], [place], [place], [address], [place]. tel:[phone] [facility], [address], [place], [place], [address], [place] [phone] SEC Terri N [place] No Information 0 Alejandrina Medel. [address], [address], [place], [place], [address], [place]. tel:[phone] Referring Provider: Gianfranco Jack, [address], [place], [address]. tel:[phone] Office/outpa tient Visit, Est [facility], [address], [place], [place], [address], [place] tel:[phone] SEC Terri N [place] No Information Oct-2 6-201 0 Cherie Ware. [address] [facility], [address], [place], [place], [address], [place]. tel:[phone] Referring Provider: Chaz Crespo MD, [address] [facility] [address], [place], [address]. [phone] Office/outpa tient Visit, Est [facility], [address] [place] [address] [address], [place], [place], [address], [place] tel:[phone] SEC [place] N [place] No Information Aug- 9-201 0 Ontiveros Julian. [address] [facility], [address], [place], [place], [address], [place]. tel:[phone] Office/outpa tient Visit, [facility], [address] [place] [address] [address], [place], [place], [address], [place] tel:[phone] SEC [place] N [place] No Information Dec- 7-200 9 Tod Lares. [address] [address] [employer] [facility] [place], [address], [place], [place], [address], [place]. tel:[phone] [facility], [address] [place] [address] [address], [place], [place], [address], [place] tel:[phone] SEC Terri N [place] No Information Apr- 0-200 9 Ontiveros Julian. [address] [facility], [address], [place], [place], [address], [place]. tel:[phone] Referring Provider: Arnaud Jack, [facility] [address] [employer], [place], [address]. tel:[phone] [facility], [address] [place] [address] [address], [place], [place], [address], [place] tel:[phone] SEC [place] N [place] No Information Mar-2 7-200 9 Ontiveros Julian. [address] [facility] [place], [address], [place], [place], [address], [place]. tel:[phone] Referring Provider: Arnaud Jack, [facility] [address], [place], [address]. tel:[phone] [facility], [address], [place], [place], [address], [place] tel:[phone] [facility] No Information Mar-2 6-200 9 [place] Arnaud. [address], [address], [place], [place], [address], [place]. tel:[phone] Referring Provider: Arnaud Jack, [facility] [address], [place], [address]. tel:[phone] [facility], [address] [place] [address] [address], [place], [place], [address], [place] tel:[phone] SEC [place] N [place] No Information Mar-2 5-200 9 Tod Lares. [address], [address], [place], [place], [address], [place]. tel:[phone] Referring Provider: Arnaud Jack, [facility] [address], [place], [address]. tel:[phone] [facility], [address] [address], [place], [place], [address], [place] tel:[phone] SEC Terri N [place]berg[place] No Information Feb-2 7-200 9 Ontiveros Julian. [address] [facility], [address], [place], [place], [address], [place]. tel:[phone] [facility], [address], [place], [place], [address], [place] tel:[phone] SEC Terri N [place] No Information Feb-1 3-200 9 Rama Jordan. [address] [employer], [address], [place], [place], [address], [place]. tel:[phone] [facility], [address] [employer] [address], [place], [place], [address], [place] tel:[phone] [facility] No Information 9 Tod Lares. [address] [employer], [address], [place], [place], [address], [place]. tel:[phone] Referring Provider: Arnaud Jack, [facility] [employer] [address], [place], [address]. tel:[phone] [facility], [address] [employer] [address], [place], [place], [address], [place] [phone] SEC Terri Grey No Information 9 Tod Lares. [address] [employer], [address], [place], [place], [address], [place]. tel:[phone] Referring Provider: Arnaud Jack, [facility] [employer] [address], [place], [address]. tel:[phone] [facility]pa [facility]ient [facility], [facility], [address] [employer] [address], [place], [place], [address], [place] [phone] SEC Terri Grey No Information 9 Tod Arnaud. [address] [employer], [address], [place], [place], [address], [place]. tel:[phone] Referring Provider: Arnaud Jack, [address] [address], [place], [address]. 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 No pain, irritation, discomfort in OU 6 [...] Date Instruction Additional Infor han Impression/Plan Impression/Plan Impression/Plan - Gi keyon samples of Pazeo qd OU. Related to Other chronic allergic conjunctivitis Other chronic allerg ic conjunctivitis - AT's recommended Related to Other chronic allergic conjunctivitis Impression/Plan - Re turn for annual exam. Related to Post-op YAG PC left eye Oct- Impression/Plan - PC F is the cause for the patients complaints discussed treatment options with pt. R/A/B of Yag PC discussed and understood by pt and the pt wishes to proceed with OS today.Return in 2-4 weeks for po Yag PC OS with DPW Oct- Other secondary alfredo ract, left eye - Surgery advised; risks, benefits, alternatives discussed. Related to Other secondary cataract, left eye Dec- Impression/Plan - Di scussed PCF and YAG PC.Refer for Left YAG PC Evaluation Impression/Plan - Re turn 6 months IOP and VF. 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 Knows to return if vision changes. Related to Other secondary cataract, bilateral - Continue to observ e without drops.Return 6 months IOP and OCT. 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 Discussed PCF and YAG PC. Knows to return if vision changes. Related to See list of assessments above - 6 months Schedule OCT of the optic nerve for glaucoma. Related to OCULAR HYPERTENSION AFTER-CATARACT NEC, OU - moderate - vision not threatened - will continue to monitor Related to AFTER-CATARACT NEC OCULAR HYPERTENSION, OU - well controlled - POAG well controlled on current medications. Continue Travan-Z qhs OU. Related to OCULAR HYPERTENSION Vitreous Detachment, OS - will continue to monitor.OHTN- continue same medication- IOP controlled nicely - Discussed diagnosis with patient. No treatment is required at present time. Discussed signs and symptoms of retinal detachment. Will continue to monitor condition. Call if condition or symptoms worsen. Related to Vitreous Detachment - return as scheduled Related to Vitreous Detachment Assessments Type Assessment Date assessment Encounter for examination follow ing surgery Patient Care Teams Name Effective Dates (start - stop) Status Members No Information
== END 2024-09-13 18:19 | disposition home or self-care (01) ==
PROVIDERS: Emergency Provider Physician Assistant
DX: S62.611A Displaced fracture of proximal phalanx of left index finger, initial encounter for closed fracture (principal); I10 Essential (primary) hypertension; E78.5 Hyperlipidemia, unspecified; G47.33 Obstructive sleep apnea (adult) (pediatric); Z86.73 Personal history of transient ischemic attack (TIA), and cerebral infarction without residual deficits; Z96.653 Presence of artificial knee joint, bilateral; Z98.49 Cataract extraction status, unspecified eye; W01.0XXA Fall on same level from slipping, tripping and stumbling without subsequent striking against object, initial encounter; M19.042 Primary osteoarthritis, left hand
CPT/HCPCS: 29130; 73140; 99284

== ENCOUNTER 2024-10-20 13:35 | Emergency (ER) | payer MEDICARE, BC, SELFPAY ==
--- NOTE | ~2024-10-20 | XR_ITS ---
EXAM: XR foot RT min 3V DATE: 10/20/2024 15:02 HISTORY: R foot pain s/p fall . COMPARISON: None available. FINDINGS: Normal mineralization. No fracture or dislocation. No lytic or blastic lesion. Mild scatte red arthritic change. Achilles and plantar enthesopathy. No erosion or periosteal change. Vascular ca lcifications. IMPRESSION: No acute osseous finding in the right foot. Reviewed, dictated and finalized at location K.
--- OUTSIDE RECORDS SUMMARY | 2024-10-20 13:36 | XMS_ITS | Clinical Summary ---
Author Organization [facility] [place] [address] [facility] [address] [place] [address] Care Team Providers Care Deputy Court Name Role Phone Krysten Webb MD Unavailable Ashwin Hughes MD Unavailable Adonay Carlos MD Unavailable [phone] Colby Adams MD Unavailable [phone] Rodrigo Blanchard MD Unavailable Jeff Young MD Primary Care Provider Brant Wakefield MD Unavailable Ney Rothman MD Unavailable Allergies Active Allergy Reactions Criticality Noted Date Comments Amlodipine Other (See comments) Low 05/15/202101/2018 Mood swings Tamsulosin Rash Medium 02/03/2023 Hydrochlorothiazide Other (See comments) Low 01/2018 mood swings Nitroglycerin Hypotension High Medications loratadine (CLARITIN) 10 mg tablet Take 1 tablet (10 mg total) by mouth as needed Active aspirin 81 mg enteric coated tablet Take 1 tablet (81 mg total) by mouth daily Active tadalafiL (ADCIRCA) 10 mg tabletIndicatio ns:Erectile dysfunction, unspecified erectile dysfunction type Take 1 tablet (10 mg total) by mouth every other day as needed for erectile dysfunction Take 1 hr prior to intercourse, max 1 tab in 48 hrs 45 tablet 1 4 Active levETIRAcetam (KEPPRA) 250 mg tablet Take 1 tablet (250 mg total) by mouth 2 (two) times a day 180 tablet 3 4 025 Active evolocumab (Repatha SureClick) 140 mg/mL pen injector Inject 1 mL (140 mg total) under the skin every 14 (fourteen) days 2 mL 11 4 Active finasteride (PROSCAR) 5 mg tablet Take 1 tablet (5 mg total) by mouth daily 30 tablet 11 5 026 Active cyanocobalamin (Vitamin B-12) 1,000 mcg tabletIndicatio ns:Prevention of Vitamin B12 Deficiency Take 2 tablets (2,000 mcg total) by mouth daily 180 tablet 3 5 026 Active rosuvastatin (CRESTOR) 20 mg tablet TAKE 1 TABLET(20 MG) BY MOUTH DAILY 30 tablet 4 5 Active hydrocortisone 2.5 % cream Apply topically as needed 3 025 Discontin ued(Thera py completed ) benazepriL (LOTENSIN) 5 mg tablet 5 025 Discontin ued(Thera py completed ) ketoconazole (NIZORAL) 2 % shampoo USE SHAMPOO 2 TO 3 TIMES A WEEK. LEAVE ON FOR 5 MINUTES PRIOR TO WASHING OFF. 5 025 Discontin ued(Thera py completed ) mupirocin (BACTROBAN) 2 % ointment Apply topically 3 (three) times a day 22 g 5 025 Discontin ued(Patie nt Reported) HYDROcodone-mindy taminophen (NORCO) 5-325 mg per tablet Take by mouth every 6 (six) hours as needed 5 025 Discontin ued(Thera py completed ) Active Problems Problem Noted Date Diagnosed Date Hand injury, left, subsequent encounter 09/22/19 Assessment & Plan (09/21/2024 12:53 PM CDT): Index Finger Fracture Sustained an index finger fracture on September 10, confirmed by imaging and managed with a temporary cast by [facility]. The cast is to remain until October 12. He is experiencing frustration with the cast and seeks advice on showering with it. - Advise on showering with a cast, suggesting the use of a plastic bag or obtaining a second cast for alternating use. - Follow up with [facility] on October 12 for reassessment of the fracture. Vitamin B12 deficiency 05/21/2024 Assessment & Plan (09/21/2024 11:16 AM CDT): - chronic condition, well controlled - known B12 deficiency hx - on vitamin B12 supplementation daily The current medical regimen is effective; continue present plan and medications. Lab Results Component Value Date VITB12 1,031 05/28/2024 Assessment & Plan (05/21/2024 11:13 AM CDT): - known B12 deficiency hx - recheck labs, - on vitamin B12 supplementation daily Lab Results Component Value Date VITB12 218 (L) 11/14/2023 Moderate aortic regurgitation 01/20/2024 Cerebral amyloid angiopathy 12/04/2023 Overview (09/21/2024): Follows with Neurology Assessment & Plan (09/21/2024 11:19 AM CDT): Chronic condition, better controlled but reports a recent episode Cerebral amyloid angiopathy is managed by a neurologist. He experiences episodes mimicking stroke symptoms but has not had a stroke. Keppra is prescribed to strengthen vessel damon and prevent further episodes. No episodes in the past seven months indicate well-managed condition. The neurologist aims to maintain abnormally low cholesterol levels and onzqw-nnne-vvbzi blood pressure to manage CAA. - Continue Keppra as prescribed per neurology - Monitor for new neurological symptoms or episodes. Assessment & Plan (05/24/2024 2:48 PM CDT): Chronic condition, better controlled Cerebral amyloid angiopathy is managed by a neurologist. He experiences episodes mimicking stroke symptoms but has not had a stroke. Keppra is prescribed to strengthen vessel damon and prevent further episodes. No episodes in the past seven months indicate well-managed condition. The neurologist aims to maintain abnormally low cholesterol levels and mamaz-vgzq-inknw blood pressure to manage CAA. - Continue [...] the change with his blood pressure reading Actinic keratosis 12/04/2023 Overview (05/21/2024): Follows with [...] left mid renal pole cyst Atherosclerosis of [place] band coronary artery of socrates andrade heart 08/23/2022 Overview (08/23/2022): Coronary artery disease and atherosclerotic vascular disease noted on CT abdomen and pelvis 04/12/2022 at [facility] Assessment & Plan (08/11/2023 6:53 PM CDT): Chronic. Patient has nonocclusive coronary atherosclerotic plaques on prior imaging. Continue risk factor modification with ASA, atorvastatin and blood pressure control Atherosclerosis of aorta 07/30/2022 Assessment & Plan (08/11/2023 6:53 PM CDT): Chronic. Incidental on prior imaging. Continue atorvastatin 80 mg daily and aspirin Benign prostatic hyperplasia with nocturia 07/30 Assessment & Plan (09/21/2024 11:26 AM CDT): - chronic condition, stable status - currently on Finasteride 5 mg daily - some nocturia 2-3 at this time The current medical regimen is effective; continue present plan and medications. Assessment & Plan (05/21/2024 11:16 AM CDT): [...] on prior imaging JERRY on CPAP 07/03/2021 Overview (09/21/2024): Follows with sleep medicine Assessment & Plan (09/21/2024 11:17 AM CDT): - chronic condition, stable status - compliant with CPAP use for JERRY - CPAP device is less than 5 years old - Established with sleep medicine/neurology Dr. Rothman 07/2025 The current medical regimen is effective; continue present plan and medications. Assessment & Plan (05/21/2024 11:12 AM CDT): - chronic condition, stable status - compliant with CPAP use for JERRY - continue current management Assessment & Plan (08/11/2023 6:52 PM CDT): Chronic. Reports good CPAP compliance. Continue nightly S/P total knee arthroplasty, right 06/25/2021 Intermittent memory loss 05/15/2021 Assessment & Plan (08/11/2023 6:53 PM CDT): Patient has a history of mild intermittent memory loss. Overall he reports it has not too bad. He has been offered option to see specialist for evaluation but deferred. His B12 level recently was little bit low so he is started B12 2000 mcg daily Essential hypertension 12/24/2017 Assessment & Plan (09/21/2024 11:11 AM CDT): Blood Pressure Management BP Readings from Last 3 Encounters: 09/21/24 132/84 09/13/24 148/88 07/13/24 106/74 Chronic condition, better controlled Current medications are: discontinued Benazepril 5 mg daily on prior visit due to recurrent falls and hypotension Patient denies any side effects or adverse side effects from the medication/s. Follow a low salt diet Monitor blood pressure regularly at home Continue current management The ASCVD Risk score (Romy DK, et al., 2019) failed to calculate for the following reasons: The 2019 ASCVD risk score is only valid for ages 40 to 79 Lab Results Component Value Date LDLCALC 11 05/28/2024 Lab Results Component Value Date GLUCOSE 96 05/28/2024 CALCIUM 10.0 05/28/2024 SODIUM 140 05/28/2024 POTASSIUM 4.4 11/14/2023 CO2 24 05/28/2024 CHLORIDE 102 05/28/2024 BUNSER 13 05/28/2024 CREATININE 1.14 05/28/2024 Assessment & Plan (05/21/2024 11:09 AM CDT): [...] Continue benazepril Hypercholesteremia 01/01/2017 Assessment & Plan (09/21/2024 11:15 AM CDT): - chronic condition - status: is well controlled. - current management/medications: currently on Repatha every 2 weeks and Rosuvastatin 20 mg daily - both - other comorbid conditions: hx of CVA - patient is compliant with medications. - most recent LDL as shown below - maintain a healthy weight, diet - will monitor closely - follows with neurology due to hx of CVA - I believe his LDL is aggressively controlled, question the need to be this aggressive, but follows with Neurology and Cardiology The current medical regimen is effective; continue present plan and medications. Lab Results Component Value Date LDLCALC 11 05/28/2024 Lab Results Component Value Date CHOL 89 (L) 05/28/2024 CHOL 170 11/14/2023 CHOL 146 07/02/2023 POCCHOL 124 05/27/2022 POCCHOL 156 05/15/2021 POCCHOL 151 05/03/2020 Lab Results Component Value Date HDL 56 05/28/2024 HDL 49 11/14/2023 HDL 45 07/02/2023 POCHDL 51 05/27/2022 POCHDL 52 05/15/2021 POCHDL 34 05/03/2020 Lab Results Component Value Date LDLCALC 11 05/28/2024 LDLCALC 98 11/14/2023 LDLCALC 57 07/02/2023 POCLDL 50 05/27/2022 POCLDL 78 05/15/2021 POCLDL 72 05/03/2020 SCRLDL 24 07/19/2024 SCRLDL 66 01/02/2017 Lab Results Component Value Date TRIG 123 05/28/2024 TRIG 128 11/14/2023 TRIG 221 (H) 07/02/2023 POCTRIG 116 05/27/2022 POCTRIG 128 05/15/2021 POCTRIG 225 05/03/2020 Assessment & Plan (05/21/2024 11:18 AM CDT): [...] of 40.0-44.9, adult 12/09 Assessment & Plan (09/21/2024 11:15 AM CDT): Wt Readings from Last 3 Encounters: 09/21/24 109 kg (240 lb 6.4 oz) 09/13/24 109.8 kg (242 lb) 07/13/24 109.5 kg (241 lb 8 oz) Body mass index is 42.58 kg/m . - chronic condition, not at goal - BMI Follow-up includes: nutrition counseling, exercise counseling and education provided - Recommend to exercise at least 30 minutes moderate to vigorous exercise most days of the week. (minimum 150 minutes weekly) - Co-morbidities - JERRY on CPAP, hypertension, hyperlipidemia Assessment & Plan (05/21/2024 11:04 AM CDT): [...] Problem Noted Date Diagnosed Date Resolved Date Jock itch 12/04/2023 09/21/2024 TIA (transient ischemic attack) 11/14/2023 05/24/2024 COVID [...] Encounters Date Type Department Care Team Description 10/12/2024 Orders Only ELSA VÁZQUEZ SLEEP Scanning, Provider 09/27/2024 11:30 AM CDT Office Visit [facility] Neurology [address] [facility] Medical Office [address], [address] [place] [address] Sujata Desai NP History of CVA (cerebrovascular accident) without residual deficits (Primary Dx); Cerebral amyloid angiopathy (HCC); Essential hypertension; Hypercholesteremia; JERRY on CPAP; Intermittent memory loss 09/21/2024 10:30 AM CDT Office Visit [facility] Primary Care at [address] [address] Jeff Young MD Essential hypertension (Primary Dx); JERRY on CPAP; Cerebral amyloid angiopathy (HCC); Hypercholesteremia; Morbid obesity with BMI of 40.0-44.9, adult (HCC); Vitamin B12 deficiency; Benign prostatic hyperplasia with nocturia; Hand injury, left, subsequent encounter 09/13/2024 3:30 PM CDT Office Visit [facility] at [address] [address] Lashay Valdovinos PA Hand injury, left, initial encounter (Primary Dx) from Last 3 Months Immunizations Immunization Administration [...] points, staff should administer the PHQ-9) 0 09/21/2024 Personal Safety Answer Date Recorded Have you ever been in or are you currently in a harmful physical or emotional relationship or is someone making you feel afraid or unsafe? 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 Gender Identity Male 06/21/2020 10:23 AM CDT Sexual Orientation Straight 06/16/2021 3: 47 PM CDT Obstetrics History Last Filed Vital Signs Vital Sign Reading Time Taken Comments Blood Pressure 129/99 09/27/2024 11:25 AM CDT Pulse 110 09/27/2024 11:25 AM CDT Temperature 36.8 C (98.3 F) 09/27/2024 11:25 AM CDT Respiratory Rate 18 09/27/2024 11:2 5 AM CDT Oxygen Saturation 95% 09/27/2024 11: 25 AM CDT Inhaled Oxygen Concentration - - Weight 108.6 kg (239 lb 6.4 oz) 025 11:25 AM CDT Height 160 cm (5' 3) 09/27/2024 11:25 AM CDT Body Mass Index 42.41 09/27/2024 11:25 AM CDT Plan of Treatment Health Maintenance Due Date Last Done Comments Covid-19 Vaccine (2023- 5 season) 2024 12/04/2023, 06/26/2023, 11/30/2022, Additional history exists Well Visit 65+ 08/10/2024 08/11/2023, 02/03/2023 Influenza Vaccine (#1) 2024 , 11/29/2022, 12/21/2021, Additional history exists Depression Screening 09/21/2025 09/21/2024, 05/21/2024, 11/18/2023, Additional history exists Fall Risk Assessment 09/21/2025 09/21/2024, 05/21/2024, 01/05/2024, Additional history exists DTaP/Tdap/Td Vaccine (3 - Td or Tdap) 09/30/2033 10/01/2023, 03/16/2013 Pneumococcal vaccine 65+ Completed 016, 01/12/2014, 01/08/2013 Zoster Vaccine Completed 01/08/2019, 09/08, 01/12/2014 Hepatitis B Screening Completed 05/28/2024 Medical Devices Implanted Type Area Grain Shipper Device Identifier Shelf Expiration Date Model / Serial / Lot [employer] Smartset Medium Viscosity Cement 40gm Bone Gentamicin [id number] - Sna - [id number] Implanted:Qty: 1 on 07/05/2021 by Brant Wakefield MD at [facility] Bone Cement Right: Knee [employer] 12/07/2022 [id number] / NA / [id number] [employer] Smartset Medium Viscosity Cement 40gm Bone Sterile 3122-040 - Sna - [id number] Implanted:Qty: 1 on 07/05/2021 by Brant Wakefield MD at [facility] Bone Cement Right: Knee [employer] [id number] 08/07/2021 3122-040 / NA / [id number] [employer] [id number] Attune Cemented Cruciate Retaining Knee Right 6 Component Femoral - Sna - [id number] Implanted:Qty: 1 on 07/05/2021 by Brant Wakefield MD at [facility] Other - see comments Right: Knee [employer] [id number] 09/06/2029 [id number] / NA / [id number] Description:Implant pause pe rformed [employer] [id number] Attune S+ Cement Fix Bearing Knee 7 Baseplate Tibial - Sna - [id number] Implanted:Qty: 1 on 07/05/2021 by Brant Wakefield MD at [facility] Other - see comments Right: Knee [employer] [id number] 02/06/2031 [id number] / NA / [id number] Description:Implant pause pe rformed [employer] [id number] Insert Attune Right Medial Stabilized Size 6 8mm - Sna - [id number] Implanted:Qty: 1 on 07/05/2021 by Brant Wakefield MD at [facility] Other - see comments Right: Knee [employer] [id number] 02/06/2029 [id number] / NA / [id number] Description:Implant pause pe rformed Plate Plate Left: Leg Description:Plate and screws Procedures Procedure Name Priority Date/Time Associated Diagnosis Comments SLEEP LAB/STUDY - RESULT 10/12/2024 4:58 PM CDT from Last 3 Months Results * SLEEP LAB/STUDY - RESULT (10/12/2024 4:58 PM CDT) us Provider Scanning Final Result from Last 3 Months Insurance MEDICARE [facility] FEDERAL MEDICARE [facility] Advance Directives For more information, please contact: [phone] Documents on File Type Date 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 Advance Directives and Bianca g Will 07/05/2021 6:56 AM * Full Code (Latest Code Status on File) Date Activated Date Inactivated Comments 11/14/2023 12:06 AM 11/14/2023 10:06 PM * Full Code Date Activated Date Inactivated Comments 07/05/2021 1:06 PM 07/06/2021 5:[address] Relationship Specialty Start Date End Date Jeff Young MD [address] [place], [place] [id number] PCP - General Family Medicine 08/18/24 Krysten Webb MD Consulting Physician Cardiology 02/03/23 Ashwin Hughes MD [address] [facility] [place] [address] Consulting Physician Urology 02/03/23 Adonay Carlos MD [address] [facility] [address] [place] [address] Referring Physician Dermatology 08/11/23 Colby Adams MD [address] [facility] [address], [facility] [address] [place] [address] Consulting Physician Neurology 08/11/23 Rodrigo Blanchard MD [address] [facility] [address] [facility] [place] [address] Consulting Physician Cardiology 05/21/24 Brant Wakefield MD [address] [place] [address] Surgeon Orthopedic Surgery 09/21/24 Ney Rothman MD [address] [facility] [address] [place] [address] Referring Physician Sleep Medicine 09/21/24
[2024-10-20 13:55] VITALS: BP 155/85; PULSE 101; RESP 16; TEMP 36.8; O2SAT 96
--- NOTE | 2024-10-20 14:00 | ED_ITS ---
HPI - Extremity Injury (Lower) General Chief Complaint: Extremity Injury, Lower <Linajose l Galloway PHOTONICS ENGINEERING TECHNOLOGIST - Last Filed: 10/20/24 14:02> Stated Complaint: R foot injury <Lina Galloway PHOTONICS ENGINEERING TECHNOLOGIST - Last Filed: 10/20/24 14:02> Time Seen by Provider: 10/20/24 14:00 <Lina Galloway PHOTONICS ENGINEERING TECHNOLOGIST - Last Filed: 10/20/24 14:02> Focused HPI: Patient is a 84-year-old male who presents to the ER with right foot pain. He reports approximately 1 week ago he tripped over a blanket and fell. Patient reports he continues to have pain to his right dorsal pedis. He denies any decreased range of motion to his ankle or metatarsals. Patient reports approximately 2 weeks ago he fell and hurt his left hand. He called the orthopedic surgeon who saw him after that injury. The orthopedic surgeon advised patient come to the ER for further evaluation. GENERAL: Well-appearing, obese, and in no acute distress. HEAD: Normocephalic, atraumatic. CHEST: Clear to auscultation. ?No respiratory distress. HEART: Regular rate and rhythm.? NEURO: ?Alert and oriented x3. SKIN: mild bruising under R ankle and yellowish color to top of foot, + pedal pulses Patient screened in triage and initial orders placed.? ?Additional care and disposition to be based upon?diagnostic testing and treatment. <Lina Galloway PHOTONICS ENGINEERING TECHNOLOGIST - Last Filed: 10/20/24 14:02> Focused HPI: Patient is a 84-year-old male who presents to the ER with right foot pain. He reports approximately 1 week ago he tripped over a blanket and fell. Patient reports he continues to have pain to his right dorsal pedis. He denies any decreased range of motion to his ankle or metatarsals. Patient reports approximately 2 weeks ago he fell and hurt his left hand. He called the orthopedic surgeon who saw him after that injury. The orthopedic surgeon advised patient come to the ER for further evaluation. GENERAL: Well-appearing, obese, and in no acute distress. HEAD: Normocephalic, atraumatic. CHEST: Clear to auscultation. ?No respiratory distress. HEART: Regular rate and rhythm.? NEURO: ?Alert and oriented x3. SKIN: mild bruising under R ankle and yellowish color to top of foot, + pedal pulses Patient screened in triage and initial orders placed.? ?Additional care and disposition to be based upon?diagnostic testing and treatment. <Martha Bhatt PA-C - Last Filed: 10/20/24 18:19> Source: patient <Martha Bhatt PA-C - Last Filed: 10/20/24 18:19> Mode of arrival: ambulatory <Martha Bhatt PA-C - Last Filed: 10/20/24 18:19> Limitations: no limitations <LILIAN Tucker Last Filed: 10/20/24 18:19> History of Present Illness HPI Narrative: Agree with above HPI. Is able to ambulate, but has slight discomfort with this. <Martha Bhatt PA-C - Last Filed: 10/20/24 18:19> Related Data Home Medications: Home Medications ?Medication ?Instructions ?Recorded ?Confirmed ?Last Taken ?Type aspirin 81 mg tablet,delayed 81 mg PO DAILY 12/26/21 02/25/23 Unknown History release atorvastatin 20 mg tablet 20 mg PO DAILY 12/26/21 02/25/23 Unknown History benazepril 5 mg tablet 5 mg PO DAILY 12/26/21 02/25/23 Unknown History finasteride 5 mg tablet 5 mg PO DAILY 02/25/23 02/25/23 Unknown History <Lina Galloway, VALERIE - Last Filed: 10/20/24 14:02> Allergies/Adverse Reactions: Allergies Allergy/AdvReac Type Severity Reaction Status Date / Time nitroglycerin AdvReac Severe Other Verified 10/20/24 13:58 <Lina Galloway, PHOTONICS ENGINEERING TECHNOLOGIST - Last Filed: 10/20/24 14:02> Review of Systems Review of Systems: All systems reviewed & are unremarkable except as noted in HPI. <Martha Bhatt PA-C - Last Filed: 10/20/24 18:19> All systems reviewed & are unremarkable except as noted in HPI and below < Martha Bhatt PA-C - Last Filed: 10/20/24 18:19> [facility] Past Medical History Medical History: Medical History Obstructive sleep apnea on CPAP Transient ischemic attack Hyperlipidemia Hypertension <Lina Galloway APRN - Last Filed: 10/20/24 14:02> Surgical History Surgical History: Surgical History History of bilateral knee arthroplasty History of cataract extraction <Lina Galloway APRN - Last Filed: 10/20/24 14:02> Family History Family History: Family History Father Heart failure Mother Heart failure Diabetes mellitus Sibling Heart failure Diabetes mellitus <Lina Galloway APRN - Last Filed: 10/20/24 14:02> Social History Social History: Social History Social History: Surrogate medical decision maker: Grace Estrella, spouse. Code status: Full code. Smoking status: Never smoker Alcohol intake: current Substance use: never Substance use type: does not use Do You Feel Safe in your Home?: Yes Lack of Transportation: No Lack of Food: Never True Current Housing: I Have Housing Concerned About Future Housing: No Difficulty Paying Gas/Electric Bills: No Difficulty Paying for Meds: No Currently Unemployed: No Education: Bachelor's Degree Difficulty w/ Childcare or Family Care: No Living arrangements: with family Additional living arrangements comments: and lives with spouse in [place]. They have 4 children. 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 Spiritual care concerns: No <Lina Galloway APRN - Last Filed: 10/20/24 14:02> Exam Narrative: GENERAL: Elderly, morbidly obese with BMI of 40.0, non-toxic, in no acute distress. HEAD: Normocephalic, atraumatic. RESPIRATORY: Airway patent, respirations nonlabored. CARDIOVASCULAR: Regular rate and rhythm. Pedal pulses are strong and easily palpable. MUSCULOSKELETAL: Moves all extremities. No gross deformities. Mild swelling and bruising to right dorsal foot and right 1st toe without significant focal tenderness. SKIN: Warm, dry, normal color. NEURO: A&O X3. Speech clear. Cranial nerves II-XII grossly intact. Steady gait. No ataxic movements. PSYCHIATRIC: Appropriate mood and affect. Normal interaction. <Martha Bhatt PA-C - Last Filed: 10/20/24 18:19> Course Vital Signs Vital signs: Vital Signs Temperature 98.2 F 10/20/24 13:55 Pulse Rate 101 H 10/20/24 13:55 Respiratory Rate 16 10/20/24 13:55 Blood Pressure 155/85 H 10/20/24 13:55 Pulse Oximetry 96 10/20/24 13:55 Oxygen Delivery Room Air 10/20/24 13:55 Temperature 98.2 F 10/20/24 13:55 Pulse Rate 101 H 10/20/24 13:55 Respiratory Rate 16 10/20/24 13:55 Blood Pressure 155/85 H 10/20/24 13:55 Pulse Oximetry 96 10/20/24 13:55 Oxygen Delivery Room Air 10/20/24 13:55 <Lina Galloway, PHOTONICS ENGINEERING TECHNOLOGIST - Last Filed: 10/20/24 14:02> Vital Signs Temperature 98.2 F 10/20/24 13:55 Pulse Rate 101 H 10/20/24 13:55 Respiratory Rate 16 10/20/24 13:55 Blood Pressure 155/85 H 10/20/24 13:55 Pulse Oximetry 96 10/20/24 13:55 Oxygen Delivery Room Air 10/20/24 13:55 Temperature 98.2 F 10/20/24 13:55 Pulse Rate 101 H 10/20/24 13:55 Respiratory Rate 16 10/20/24 13:55 Blood Pressure 155/85 H 10/20/24 13:55 Pulse Oximetry 96 10/20/24 13:55 Oxygen Delivery Room Air 10/20/24 13:55 <Martha Bhatt PA-C - Last Filed: 10/20/24 18:19> MDM - Extremity Injury (Lower) MDM Narrative Medical decision making narrative: Patient?s injury is consistent with musculoskeletal etiology. No signs of neurologic or vascular compromise on physical examination. Compartments are soft without signs of compartment syndrome. XR of right foot negative for fracture. Pain is consistent with contusion. Patient is felt to be stable for discharge home and further outpatient management and treatment. Offered Efrain bandage in patient politely declined. Discussed further management of foot contusion, return precautions. Patient discharged in stable condition. <Martha Bhatt PA-C - Last Filed: 10/20/24 18:19> Medical Records Attestation: I reviewed the patient's medical records. <Martha Bhatt PA-C - Last Filed: 10/20/24 18:19> Imaging Data Attestation: I personally reviewed and interpreted this imaging study as follows: <Martha Bhatt PA-C - Last Filed: 10/20/24 18:19> Radiologist's impression: ITS Impressions Foot X-Ray 10/20/24 15:03 IMPRESSION: No acute osseous finding in the right foot. <Martha Bhatt PA-C - Last Filed: 10/20/24 18:19> Discharge Plan Discharge Clinical Impression: Contusion of right foot Qualifiers: Encounter type: initial encounter Qualified Code(s): S90.31XA - Contusion of right foot, initial encounter <Lina Galloway APRN - Last Filed: 10/20/24 14:02> Patient Disposition: Home <Lina Galloway APRN - Last Filed: 10/20/24 14:02> Condition: Stable <Lina Galloway APRN - Last Filed: 10/20/24 14:02> Instructions: Antibiotic Form, Foot Sprain (ED) <Lina Galloway APRN - Last Filed: 10/20/24 14:02> Additional Instructions: Your imaging did not show any evidence of fracture. Recommend ice areas pain, Tylenol/ibuprofen as needed for pain. Return to the ED for new or worsening concerns. <Lina Galloway APRN - Last Filed: 10/20/24 14:02> Patient Language: Romanian <Lina Galloway APRN - Last Filed: 10/20/24 14:02> Prescriptions: No Action hydrocodone-acetaminophen 5-325 mg tablet 1 tablet PO Q6H PRN (Reason: pain) Qty: 20 0RF atorvastatin 20 mg tablet 20 mg PO DAILY benazepril 5 mg tablet 5 mg PO DAILY aspirin 81 mg tablet,delayed release (DR/EC) 81 mg PO DAILY finasteride 5 mg tablet 5 mg PO DAILY <Lina Galloway APRN - Last Filed: 10/20/24 14:02> Follow-up/Referrals: PHYSICIAN NOT ON STAFF,NONSTAFF [Primary Care Provider] - <Lina Galloway APRN - Last Filed: 10/20/24 14:02> Time of Disposition: 17:31 <Lina Galloway APRN - Last Filed: 10/20/24 14:02> 17:31 <Martha Bhatt PA-C - Last Filed: 10/20/24 18:19>
--- OUTSIDE RECORDS SUMMARY | 2024-10-20 14:28 | XMS_ITS | Clinical Summary ---
Author Organization [facility] [place] [place] [address] [facility] [address] [place] [address] Care Team Providers Care Executive Communications Manager Name Role Phone Krysten Webb MD Unavailable [phone] Ashwin Hughes MD Unavailable Adonay Carlos MD Unavailable [phone] Colby Adams MD Unavailable [phone] Rodrigo [...] and managed with a temporary cast by [facility]. The cast is to remain until October 12. He is experiencing frustration with the cast and seeks advice on showering with it. - Advise on showering with a cast, suggesting the use of a plastic bag or obtaining a second cast for alternating use. - Follow up with [facility] on October 12 for [...] to maintain abnormally low cholesterol levels and dnpsi-hsit-dfaet blood pressure to manage CAA. - Continue [...] to maintain abnormally low cholesterol levels and pzhmw-ohho-ppkyc blood pressure to manage CAA. - Continue [...] left mid renal pole cyst Atherosclerosis of [place] coronary artery of socrates andrade heart 08/23/2022 Overview (08/23/2022): Coronary artery disease and atherosclerotic vascular disease noted on CT abdomen and pelvis 04/12/2022 at [facility] Assessment & Plan (08/11/2023 6:53 PM [...] health risk. Has lost some wt since usp, but none in last few months. Resolved [...] Provider 09/27/2024 11:30 AM CDT Office Visit [facility] Neurology [address] [facility] [address] [place] [address] Sujata Desai NP History of CVA (cerebrovascular accident) without residual deficits (Primary Dx); Cerebral amyloid angiopathy (HCC); Essential hypertension; Hypercholesteremia; JERRY on CPAP; Intermittent memory loss 09/21/2024 10:30 AM CDT Office Visit [facility] Primary Care at [address] [address] Jeff Young MD Essential hypertension (Primary Dx); JERRY on CPAP; Cerebral amyloid angiopathy (HCC); Hypercholesteremia; Morbid obesity with BMI of 40.0-44.9, adult (HCC); Vitamin B12 deficiency; Benign prostatic hyperplasia with nocturia; Hand injury, left, subsequent encounter 09/13/2024 3:30 PM CDT Office Visit [facility] Medical [facility]ient [facility] at [address] [address] Lashay Valdovinos PA Hand injury, [...] on file 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 Gender Identity Male 06/21/2020 10:23 AM [...] Completed 05/28/2024 Medical Devices Implanted Type Area Field Identification Specialist Device Identifier Shelf Expiration Date Model / Serial / Lot [employer] Smartset Medium Viscosity Cement 40gm Bone Gentamicin [id number] - Sna - [id number] Implanted:Qty: 1 on 07/05/2021 by Brant Wakefield MD at [facility] Bone Cement Right: Knee [employer] 12/07/2022 [id number] / NA / [id number] [employer] Smartset Medium Viscosity Cement 40gm Bone Sterile 3122-040 - Sna - [id number] Implanted:Qty: 1 on 07/05/2021 by Brant Wakefield MD at [facility] Bone Cement Right: Knee [employer] [id number] 08/07/2021 3122-040 / NA / [id number] [employer] [id number] Attune Cemented Cruciate Retaining Knee Right 6 Component Femoral - Sna - [id number] Implanted:Qty: 1 on 07/05/2021 by Brant Wakefield MD at [facility] Other - see comments Right: Knee [employer] [id number] 09/06/2029 [id number] / NA / [id number] Description:Implant pause pe rformed [employer] [id number] Attune S+ Cement Fix Bearing Knee 7 Baseplate Tibial - Sna - [id number] Implanted:Qty: 1 on 07/05/2021 by Brant Wakefield MD at [facility] Other - see comments Right: Knee [employer] [id number] 02/06/2031 [id number] / NA / [id number] Description:Implant pause pe rformed [employer] [id number] Insert Attune Right Medial Stabilized Size 6 8mm - Sna - [id number] Implanted:Qty: 1 on 07/05/2021 by Brant Wakefield MD at [facility] Other - see comments Right: Knee [employer] [id number] 02/06/2029 [id number] / NA / [id number] Description:Implant pause pe rformed Plate Plate Left: Leg Description:Plate and screws Procedures Procedure Name Priority Date/Time Associated Diagnosis Comments SLEEP LAB/STUDY - RESULT 10/12/2024 4:58 PM CDT from Last 3 Months Results * SLEEP LAB/STUDY - RESULT (10/12/2024 4:58 PM CDT) us Provider Scanning Final Result from Last 3 Months Insurance MEDICARE [facility] FEDERAL MEDICARE [facility] Advance Directives For more information, please contact: [phone] Documents on File Type Date 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 Advance Directives and Bianca g Will 07/05/2021 6:56 AM * Full Code (Latest Code Status on File) Date Activated Date Inactivated Comments 11/14/2023 12:06 AM 11/14/2023 10:06 PM * Full Code Date Activated Date Inactivated Comments 07/05/2021 1:06 PM 07/06/2021 5:10 PM Care Teams Executive Communications Manager Relationship Specialty Start Date End Date Jeff Young MD [address] [place], [place] [id number] PCP - General Family Medicine 08/18/24 Krysten Webb MD Consulting Physician Cardiology 02/03/23 Ashwin Hughes MD [address] [facility] [place] [address] Consulting Physician Urology 02/03/23 Adonay Carlos MD [address] [facility] [address] [place] [address] Referring Physician Dermatology 08/11/23 Colby Adams MD [address] [facility] [address], [facility] [address] [place] [address] Consulting Physician Neurology 08/11/23 Rodrigo Blanchard MD [address] [facility] [address] [facility] [place] [address] Consulting Physician Cardiology 05/21/24 Brant Wakefield MD [address] [place] [address] Surgeon Orthopedic Surgery 09/21/24 Ney Rothman MD [address] [facility] [address] [place] [address] Referring Physician Sleep Medicine 09/21/24
--- OUTSIDE RECORDS SUMMARY | 2024-10-20 14:28 | XMS_ITS | Continuity of Care Document ---
Author Organization [facility] Address [address] [facility] [address] [place] [address] Phone Care Team Providers Care Cancellation Clerk Name Role Phone Gueraroxy JHA, Rose Unavailable [...] Vision Service - Supplies BF Plastic Sph Novelty To +/- 4d 12 [facility] Frames Purchases BF Plastic Sph Novelty To +/- 4d 12 Office/outpatient Visit, Est [...] Diagnoses Date Provider Providers Copied on Encounter [facility], [address], [place], [place], [address], [phone] SEC Terri Grey Post-Op (chief complaint) Encounter for examination following surgery [address] [facility], [address], [place], [address], [place]. tel:[phone] Referring Provider: Arnaud Jack, [employer] [address], [place], [address]. [phone] [facility], [address], [place], [place], [address], [place] [phone] [facility] No Information 8 Tod Lares. [address], [address], [place], [place], [address], [place]. tel:[phone] Referring Provider: Arnaud Jack, [address], [place], [address]. [phone] Office/outpa tient Visit, Est [facility], [address], [place], [place], [address], [place] [phone] SEC Terri Grey YAG evaluation (chief complaint) Other secondary cataract, right eyePresence of intraocular lens 8 Tod Lares. [address], [address], [place], [place], [address], [place]. tel:[phone] Referring Provider: Arnaud Jack, [address] [place] [address] [address], [place], [address]. [phone] Office/outpa tient Visit, [facility], [address] [place] [address] [address], [place], [place], [address], [place] tel:[phone] SEC [place] N [place] Pressure around the eyes (chief complaint) Other chronic allergic conjunctivitis Roldan- [address] [facility], [address], [place], [place], [address], [place]. tel:[phone] Referring Provider: Julian Gonzalez, [address], [address]. [phone] [facility], [address] [place] [address] [address], [place], [place], [address], tel:[phone] SEC Att[place] N [place] 3 week YAG PC OS (chief complaint) No Information 6 Rama Jordan. [address] [facility] [address], [place], [address], . tel:[phone] Referring Provider: Julian Gonzalez, [address] [facility] [address], [place], [address]. tel:[phone] Office/outpa tient Visit, [facility], [address] [place] [address] [address], [place], [place], [address], [place] tel:[phone] SEC Att[place] N [place] YAG Evaluation (chief complaint) No Information 6 Tod Lares. [address] [place] [address], [address], [place], [place], [address], [place]. tel:[phone] Referring Provider: Julian Gonzalez, [address] [facility] [address], [place], [address]. [phone] Office/outpa tient Visit, [facility], [address], [place], [place], [address], [place] tel:[phone] SEC Terri N [place] IOP ck (chief complaint) No Information [address] [facility], [address], [address], [place]. tel:[phone] Referring Provider: Julian Gonzalez, [address] [address], [place], [address]. tel:[phone] Office/outpa tient Visit, [facility], [address], [place], [place], [address], [place] tel:[phone] SEC [place] N [place] IOP check (chief complaint) No Information 6 Ontiveros Julian. [address], [id number], [place]. tel:[phone] Referring Provider: Julian Gonzalez, [address] [address], [place], [address]. tel:[phone] Office/outpa tient Visit, [facility], [address], [place], [place], [address], [place] tel:[phone] SEC Terri N [place] 6 [place] IOP CHECK & HVF (chief complaint) No Information [address] [facility], [facility] [address], [place], [place], [address], [place]. tel:[phone] Referring Provider: Mala Carrillo MD, [address] [facility], [place], [address]. tel:[phone] [facility], [address], [place], [place], [address], [place] tel:[phone] SEC Terri N [place] Complete Exam (chief complaint) No Information 5 Rama Jordan. [address], [id number], [place]. tel:[phone] Referring Provider: Julian Gonzalez, [address] [address], [place], [address]. tel:[phone] [facility], [address] [place] [address], [place], [place], [address], [place] tel:[phone] SEC [place] N [place] No Information [address] [facility], [address], [id number], [place]. tel:[phone] [facility], [address] [place] [address] [address], [place], [place], [address], [place] tel:[phone] SEC Att[place] N [place] No Information 2 [employer] [facility] . [address] [place] [address], [id number], [place]. tel:[phone] Referring Provider: Julian Gonzalez, [address], [address]. [phone] [facility], [address] [place] [address] [address], [place], [place], [address], [place] tel:[phone] SEC [place] N [place] No Information 2 [employer] [facility] . [address] [place] [address], [id number], [place]. tel:[phone] Referring Provider: Julian Gonzalez, [address], [address]. tel:[phone] Office/outpa tient Visit, Est [facility], [address] [place] [address] [address], [place], [place], [address], [place] [phone] SEC [place] N [place] No Information 1 Tod Lares. [address] [place] [address], [address], [place], [place], [address], [place]. tel:[phone] [facility], [address], [place], [place], [address], [place] tel:[phone] SEC Terri N [place]berg[place] No Information 1 Tod Lares. [address] [facility], [address], [place], [place], [address], [place]. tel:[phone] [facility], [address] [place] [address], [place], [place], [address], [place] tel:[phone] [facility] [place] No Information 1 Cherie Ware. [address] [facility], [address], [place], [place], [address], [place]. tel:[phone] [facility], [address] [address], [place], [place], [address], [place] [phone] [facility] [place] No Information 1 Dodge Arnaud. [address] [address] [employer] [facility], [address], [place], [place], [address], [place]. tel:[phone] [facility], [address], [place], [place], [address], [place] [phone] SEC Terri N [place] No Information 0 Alejandrina Medel. [address], [address], [place], [address], [place]. tel:[phone] Referring Provider: Gianfranco Jack, [address], [place], [address]. tel:[phone] Office/outpa tient Visit, Est [facility], [address] [address], [place], [place], [address], [place] tel:[phone] SEC Terri N [place] No Information Oct-2 6-201 0 Cherie Ware. [address] [facility], [address], [place], [place], [address], [place]. tel:[phone] Referring Provider: Chaz Crespo MD, [address] [facility] [address], [place], [address]. [phone] Office/outpa tient Visit, Est [facility], [address] [place] [address] [address], [place], [place], [address], [place] tel:[phone] SEC Terri N [place] No Information Aug- 9-201 [address] [facility], [address], [place], [place], [address], [place]. tel:[phone] Office/outpa tient Visit, [facility], [address] [place] [address] [address], [place], [place], [address], [place] tel:[phone] SEC [place] N [place] No Information Dec- 7-200 9 Tod Lares. [address] [facility] [employer] [facility], [address], [place], [place], [address], [place]. tel:[phone] [facility], [address] [place] [address] [address], [place], [place], [address], [place] tel:[phone] SEC [place] N [place] No Information Apr- 0-200 [address] [facility], [address], [place], [place], [address], [place]. tel:[phone] Referring Provider: Arnaud Jack, [facility] [address], [place], [address]. tel:[phone] [facility], [address] [place] [address] [address], [place], [place], [address], [place] tel:[phone] SEC Terri N [place] No Information Mar-2 7-200 9 Ontiveros Julian. [address] [facility], [address], [place], [place], [address], [place]. tel:[phone] Referring Provider: Arnaud Jack, [facility] [address], [place], [address]. tel:[phone] [facility], [address], [place], [place], [address], [place] tel:[phone] [facility] No Information Mar-2 6-200 9 Dodge Arnaud. [address], [address], [place], [place], [address], [place]. tel:[phone] Referring Provider: Arnaud Jack, [facility] [address], [place], [address]. tel:[phone] [facility], [address] [place] [address] [address], [place], [place], [address], [place] tel:[phone] SEC Terri N [place] No Information Mar-2 5-200 9 Tod Lares. [address], [address], [place], [place], [address], [place]. tel:[phone] Referring Provider: Arnaud Jack, [facility] [address], [place], [address]. tel:[phone] [facility], [address] [address], [place], [place], [address], [place] tel:[phone] SEC [place] N [place] No Information Feb-2 7-200 [address] [facility], [address], [place], [place], [address], [place]. tel:[phone] [facility], [address] [address], [place], [place], [address], [place] tel:[phone] SEC [place] N [place] No Information Feb-1 3-200 9 Rama Jordan. [address], [address], [place], [place], [address], [place]. tel:[phone] [employer] [facility], [address], [place], [place], [address], [place] tel:[phone] [facility] No Information 9 Tod Lares. [address], [address], [place], [place], [address], [place]. tel:[phone] Referring Provider: Arnaud Jack, [facility] [address], [place], [address]. tel:[phone] [employer] [facility], [address] [employer] [address], [place], [place], [address], [place] [phone] SEC Terri Grey No Information 9 Tod Lares. [address], [address], [place], [place], [address], [place]. tel:[phone] Referring Provider: Arnaud Jack, [facility] [address], [place], [address]. tel:[phone] Office/outpa tient Visit, [facility], [address], [place], [place], [address], [place] [phone] SEC Terri Grey No Information 9 Tod Arnaud. [address], [address], [place], [place], [address], [place]. tel:[phone] Referring Provider: Arnaud Jack, [address], [place], [address]. 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 No pain, irritation, discomfort in OU 6 [...] to Post-op YAG PC left eye Oct- Other secondary alfredo ract, left eye [...] changes. Related to Other secondary cataract, bilateral CUPPING OF OPTIC DIS C - [...] Travan-Z qhs OU. Related to OCULAR HYPERTENSION AFTER-CATARACT NEC, OU - moderate - vision not threatened - will continue to monitor Related to AFTER-CATARACT NEC Vitreous Detachment, OS - will continue to [...]
== END 2024-10-20 17:57 | disposition home or self-care (01) ==
PROVIDERS: Emergency Provider Physician Assistant
DX: S90.31XA Contusion of right foot, initial encounter (principal); W01.0XXA Fall on same level from slipping, tripping and stumbling without subsequent striking against object, initial encounter; G47.33 Obstructive sleep apnea (adult) (pediatric); Z99.89 Dependence on other enabling machines and devices; E78.5 Hyperlipidemia, unspecified; I10 Essential (primary) hypertension; Z86.73 Personal history of transient ischemic attack (TIA), and cerebral infarction without residual deficits; Z96.653 Presence of artificial knee joint, bilateral
CPT/HCPCS: 73630; 99283

== ENCOUNTER 2025-02-17 16:48 | Emergency (ER) | payer MEDICARE, BC, SELFPAY ==
--- NOTE | ~2025-02-17 | CT_ITS ---
EXAMINATION: CT abdomen pelvis w con DATE: 02/18/2025 00:27 INDICATION: Abdominal pain. TECHNIQUE: Computed tomography (CT) of the abdomen and pelvis was performed with 100 mL Omnipaque 350 intravenous contrast. Automated exposure control and iterative reconstruction technique were employed. The dose-length product was 1595.59 mGy-cm. COMPARISON: None. FINDINGS: The visualized portions of lung bases demonstrate mild atelectasis. No pleural effusion. The heart size is normal. There are coronary artery calcifications. No pericardial effusion. There is a small sliding hiatal hernia. The liver, gallbladder, spleen, pancreas, and adrenal glands are normal. There are cysts in the kidneys measuring up to 15.7 cm on the left. There is a 2.2 cm mass in left kidney measuring soft tissue attenuation. There are bilateral inguinal hernias containing fat. The prostate is mildly enlarged. The appendix is normal. There are no dilated loops of bowel. There are no pathologically enlarged lymph nodes. There is no free intraperitoneal fluid. There is severe thoracic and lumbar spondylosis. There is a chronic compression fracture of T12. 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 IMPRESSION: 1. Small sliding hiatal hernia. 2. 2.2 cm mass in left kidney measuring soft tissue attenuation, which may be a hemorrhagic cyst or less likely renal cell carcinoma. Abdomen CT without and with contrast is recommended. 3. Bilateral inguinal hernias containing fat. Reviewed, dictated and finalized at location E. TH PROMOTION SPECIALIST IMPRESSION: 1. Small sliding hiatal hernia. 2. 2.2 cm mass in left kidney measuring soft tissue attenuation, which may be a hemorrhagic cyst or less likely renal cell carcinoma. Abdomen CT without and w ith contrast is recommended. 3. Bilateral inguinal hernias containing fat.
[2025-02-17 17:00] VITALS: BP 172/90; PULSE 80; RESP 18; TEMP 36.4; O2SAT 98
[2025-02-17 19:15] VITALS: BP 154/100; PULSE 70; RESP 18; TEMP 37; O2SAT 97
[2025-02-17 20:58] LABS: Hematocrit 46.3 % (42.0-52.0); Hemoglobin 15.2 g/dL (14.0-18.0); Immature Granulocyte Percent A 0.3 % (0-0.5); Lymphocytes Absolute Auto 2.09 K/mm3 (0.9-3.2); Mean Corpuscular HGB Conc 32.8 g/dl (32-36); Mean Corpuscular Hemoglobin 31.9 pg (26-34); Mean Corpuscular Volume 97.3 fl (80-100); Nucleated Red Blood Cells Absolute Auto 0.000 K/mm3 (0.0-0.012); Nucleated Red Blood Cells Perc 0.0 % (0.0-0.2); Platelet Count Result 279 k/mm3 (150-375); Red Blood Count 4.76 M/mm3 (4.6-6.20); White Blood Count 9.6 K/mm3 (4.5-10.0)
[2025-02-17 21:12] LABS: Alanine Aminotransferase 15 U/L (6-50); Albumin Level 4.4 g/dL (3.5-5.1); Alkaline Phosphatase 94 U/L (38-126); Anion Gap 5 mmol/L (4-12); Aspartate Amino Transferase 23 U/L (17-59); Bilirubin,Total 1.5 mg/dL (0.2-1.3); Blood Urea Nitrogen 17 mg/dL (9-20); Calcium 9.9 mg/dL (8.4-10.2); Carbon Dioxide 28 mmol/L (22-30); Chloride 105 mmol/L (98-107); Estimated CRCL calculation 49 ml/min; Estimated Glomerular Filt Rate > 60; Glucose 95 mg/dL (65-110); Potassium 4.2 mmol/L (3.4-5.0); Sodium 138 mmol/L (137-145); Total Protein 7.9 g/dL (6.3-8.2)
[2025-02-17 21:21] VITALS: BP 166/89; PULSE 85; RESP 14; O2SAT 99
--- NOTE | 2025-02-17 21:38 | PC.NURSE ---
Pt. able to ambulate to the bathroom independently to attempt to provide urine sample.
[2025-02-17 21:56] LABS: Add Urine Microscopic? YES; Appearance Urine Cloudy (Clear); Glucose Urine UA Negative (Negative); Leukocyte Esterase Ur Negative LEU/UL (Negative); Nitrate Urine Negative (Negative); Specific Grav Ur 1.031 (1.001-1.035)
[2025-02-17 21:57] VITALS: BP 173/98; PULSE 85; RESP 14; O2SAT 98
--- NOTE | 2025-02-18 01:46 | ED.GENADULT ---
HPI - General Adult General Chief complaint: Abdominal Pain Stated complaint: RLQ pain Time Seen by Provider: 02/17/25 23:10 History of Present Illness HPI narrative: 84-year-old male presenting with his for right-sided flank pain ongoing for the last few days. Patient reports the pain worsened today. Denies urinary concerns, nausea/vomiting /diarrhea, chest pain/ shortness of breath. Patient reports his last bowel movement was this morning and it was normal. Related Data Home Medications ?Medication ?Instructions ?Recorded ?Confirmed ?Last Taken ?Type aspirin 81 mg tablet,delayed 81 mg PO DAILY 12/26/21 02/25/23 Unknown History release atorvastatin 20 mg tablet 20 mg PO DAILY 12/26/21 02/25/23 Unknown History benazepril 5 mg tablet 5 mg PO DAILY 12/26/21 02/25/23 Unknown History finasteride 5 mg tablet 5 mg PO DAILY 02/25/23 02/25/23 Unknown History Allergies Allergy/AdvReac Type Severity Reaction Status Date / Time hydrochlorothiazide Allergy Intermediate electrolyte Verified 02/17/25 21:25 imbalance nitroglycerin AdvReac Severe Other Verified 02/17/25 21:25 Review of Systems Review of Systems: All systems reviewed & are unremarkable except as noted in HPI and below PMFSH Past Medical History Medical History Obstructive sleep apnea on CPAP Transient ischemic attack Hyperlipidemia Hypertension Surgical History Surgical History History of bilateral knee arthroplasty History of cataract extraction Family History Family History Father Heart failure Mother Heart failure Diabetes mellitus Sibling Heart failure Diabetes mellitus Social History Social History Social History: Surrogate medical decision maker: Grace Estrella, spouse. Code status: Full code. Smoking status: Never smoker Alcohol intake: current Substance use: never Substance use type: does not use Lack of Transportation: No Lack of Food: Never True Current Housing: I Have Housing Concerned About Future Housing: No Difficulty Paying Gas/Electric Bills: No Difficulty Paying for Meds: No Currently Unemployed: No Education: Bachelor's Degree Difficulty w/ Childcare or Family Care: No Living arrangements: with family Additional living arrangements comments: and lives with spouse in [place]. They have 4 children. 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 Spiritual care concerns: No Exam Narrative: GENERAL: Well-appearing, well-nourished, and in no acute distress. HEAD: Normocephalic, atraumatic. EYES: PERRLA and EOMI. ENT: Nares clear, no rhinorrhea or epistaxis. Mucous membranes moist. Oropharynx without tonsillar hypertrophy exudate or other lesions. Bilateral TMs pearly monsivais non-bulging NECK: Supple. No adenopathy or masses. No carotid bruits or JVD CHEST: Clear to auscultation. No respiratory distress. No wheezes rales or rhonchi HEART: Regular rate and rhythm. No murmur heard. Normal peripheral pulses. ABDOMEN: Soft, nondistended, normal active bowel sounds. Mild TTP of right flank and right abdomen EXTREMITIES: Normal range of motion. No edema. SKIN: Warm, dry, no rash. NEURO: No focal deficits. Alert and oriented x3. PSYCH: Normal mood and affect Course Vital Signs Vital signs: Vital Signs Temperature 97.5 F L 02/17/25 17:00 Pulse Rate 80 02/17/25 17:00 Respiratory Rate 18 02/17/25 17:00 Blood Pressure 172/90 H 02/17/25 17:00 Pulse Oximetry 98 02/17/25 17:00 Temperature 98.6 F 02/17/25 19:15 Pulse Rate 85 02/17/25 21:57 Respiratory Rate 14 02/17/25 21:57 Blood Pressure 173/98 H 02/17/25 21:57 Pulse Oximetry 98 02/17/25 21:57 [facility] Narrative Medical decision making narrative: 84-year-old male presenting with his for right-sided flank pain ongoing for the last few days. Patient reports the pain worsened today. Denies urinary concerns, nausea/vomiting /diarrhea, chest pain/ shortness of breath. Patient reports his last bowel movement was this morning and it was normal. Patient's abdomen is soft without significant pain or signs of surgical abdomen on serial exams. Labs and UA within normal limits. CT demonstrates no acute intra-abdominal abnormalities. Imaging noted a 15 cm left kidney cyst. Patient and state that they are aware and that this is being followed by his urologist. Patient is felt to be a reasonable candidate for outpatient management. Patient was instructed as to limitations of CT and laboratory evaluation and encouraged to follow with PCP for further evaluation. Given reasons to return to the ED. Differential Diagnosis Differential Diagnosis: Differential diagnostic considerations for acute abdominal pain include surgical abdominal etiology, ischemic bowel, inflammatory bowel disease, gastritis, PUD, gastroenteritis, cardiac etiology, appendicitis, diverticulitis, bowel obstruction, kidney stone, pyelonephritis, abdominal aortic aneurysm, pancreatitis, constipation, endometriosis. Medical Records I have reviewed the following patient records and this information was taken into consideration when formulating the assessment and plan.: previous labs and previous ER visits Lab Data MDM Lab Attestation statement: I personally reviewed the patient's lab results. 02/17/25 20:50 02/17/25 20:50 Labs: Lab Results 02/17/25 02/17/25 Range/Units 20:50 21:44 WBC 9.6 (4.5-10.0) K/mm3 RBC 4.76 (4.6-6.20) M/mm3 Hgb 15.2 (14.0-18.0) g/dL Hct 46.3 (42.0-52.0) % MCV 97.3 (80-100) fl MCH 31.9 (26-34) pg MCHC 32.8 (32-36) g/dl RDW 13.4 (11.5-14.5) % Plt Count 279 (150-375) k/mm3 MPV 10.5 H (7.4-10.4) fl Immature Gran % (Auto) 0.3 (0-0.5) % Neut % (Auto) 64.4 (45.5-73.1) % Lymph % (Auto) 21.8 (18.3-44.2) % Meriwether % (Auto) 9.2 H (2.6-8.5) % Eos % (Auto) 3.7 (0-4.4) % Baso % (Auto) 0.6 (0.2-1.2) % Lymph # (Auto) 2.09 (0.9-3.2) K/mm3 Meriwether # (Auto) 0.9 H (0.1-0.6) K/mm3 Eos # (Auto) 0.4 H (0-0.3) K/mm3 Baso # (Auto) 0.1 (0.0-0.1) K/mm3 Abs Immat Gran (auto) 0.03 (0.00-0.031) K/mm3 Absolute Neuts (auto) 6.2 (1.3-6.7) K/mm3 Absolute Nucleated RBC 0.000 (0.0-0.012) K/mm3 Nucleated RBC % 0.0 (0.0-0.2) % Sodium 138 (137-145) mmol/L Potassium 4.2 (3.4-5.0) mmol/L Chloride 105 (98-107) mmol/L Carbon Dioxide 28 (22-30) mmol/L Anion Gap 5 (4-12) mmol/L BUN 17 (9-20) mg/dL Creatinine 1.11 (0.7-1.3) mg/dL Estim Creat Clear Calc 49 ml/min Estimated GFR > 60 (59 - ) Glucose 95 (65-110) mg/dL Calcium 9.9 (8.4-10.2) mg/dL Total Bilirubin 1.5 H (0.2-1.3) mg/dL AST 23 (17-59) U/L ALT 15 (6-50) U/L Alkaline Phosphatase 94 (38-126) U/L Total Protein 7.9 (6.3-8.2) g/dL Albumin 4.4 (3.5-5.1) g/dL Urine Color Yellow (Yellow) Urine Appearance Cloudy H (Clear) Urine pH 5.5 (5.0-9.0) Ur Specific [place] 1.031 (1.001-1.035) Urine Protein 4+ H (Negative) mg/dL Urine Glucose (UA) Negative (Negative) mg/dL Urine Ketones Negative (Negative) mg/dL Ur Blood (Man) Negative (Negative) Urine Nitrate Negative (Negative) Urine Bilirubin Negative (Negative) Urine Urobilinogen 1.0 (<2.0) mg/dL Leukocyte Esterase Rfl Negative (Negative) GONZALO/UL Urine RBC 3-5 H (0-2) /hpf Urine WBC 0-5 (0-3) /hpf Ur Squamous Epith Cells None seen (Few) /hpf Urine Bacteria None seen /hpf Urine Casts 3-5 Imaging Data Attestation: I personally reviewed and interpreted this imaging study as follows: Radiologist's impression: CT abdomen pelvis Impression: No acute intra-abdominal abnormality. Hepatic steatosis. No biliary dilation or calcified gallstone. No bowel obstruction or inflammation. Normal appendix. No hydronephrosis or renal calculus. Bilateral renal cysts, largest in the left kidney measuring 15 cm. Urinary bladder wall thickening, nonspecific. Correlate with urinalysis. Small hiatal hernia. Distal esophageal mural thickening, inflammation versus under distention. Discharge Plan Discharge Clinical Impression: Abdominal pain, Kidney cysts Patient Disposition: Home Condition: Stable Instructions: Abdominal Pain (ED) Additional Instructions: Return to the emergency department if you experience fever, chest pain, shortness of breath, abdominal pain with nausea and vomiting, weakness, numbness/tingling, or any other symptoms that are concerning to you. Take Tylenol as needed for pain. Hydrate. Follow up with primary care doctor. Patient Language: Stateless Prescriptions: No Action hydrocodone-acetaminophen 5-325 mg tablet 1 tablet PO Q6H PRN (Reason: pain) Qty: 20 0RF atorvastatin 20 mg tablet 20 mg PO DAILY benazepril 5 mg tablet 5 mg PO DAILY aspirin 81 mg tablet,delayed release (DR/EC) 81 mg PO DAILY finasteride 5 mg tablet 5 mg PO DAILY Follow-up/Referrals: Jeff Koch [Other]
[2025-02-18 01:52] VITALS: BP 122/65; PULSE 75; RESP 18; TEMP 36.7; O2SAT 98
== END 2025-02-18 01:54 | disposition home or self-care (01) ==
PROVIDERS: Emergency Medicine
DX: R10.A1 Flank pain, right side (principal); N28.1 Cyst of kidney, acquired; I10 Essential (primary) hypertension; E78.5 Hyperlipidemia, unspecified; G47.33 Obstructive sleep apnea (adult) (pediatric); Z96.653 Presence of artificial knee joint, bilateral; Z86.73 Personal history of transient ischemic attack (TIA), and cerebral infarction without residual deficits; Z98.49 Cataract extraction status, unspecified eye; Z79.899 Other long term (current) drug therapy; Z79.82 Long term (current) use of aspirin; K44.9 Diaphragmatic hernia without obstruction or gangrene; K40.20 Bilateral inguinal hernia, without obstruction or gangrene, not specified as recurrent
CPT/HCPCS: 36415; 74177; 80053; 81001; 85025; 99284; Q9967